=== PATIENT | female | born 1960 | race Caucasian/White ===

== ENCOUNTER 2016-07-15 14:57 | Emergency (ER) | payer OTHER ==
[~2016-07-15] VITALS: Ht 160 cm; Wt 70.0 kg
[~2016-07-15 14:57] MED LIST: ALBU8I INH; ASPI81 PO; CAPT50TA PO; FEXO180 PO; FLON0.053; HYDR-2768 PO; METO25 PO; RANI150 PO; SIMV80TA PO; XANA0.5T PO
[2016-07-15 14:59] VITALS: BP 184/82; PULSE 81; RESP 12; TEMP 98.3; O2SAT 97
[2016-07-15] MEDS ORDERED: AUGM875T PO (17:41)
--- NOTE | 2016-07-15 17:41 | PD ---
HPI Chief Complaint: Skin Problem Time Seen by Provider: 17:41 Travel History International Travel<30 days: No Contact w/Intl Traveler<30days: No Traveled to known affect area: No History of Present Illness HPI Patient is a 56 year old female with a history of CAD presenting with cat bite to left calf. She states 5 days prior her cat was chasing it's tail and she got in the way. She states that bleeding was minimal. Her cat is fully vaccinated and is indoor only. She states that she had pain and swelling and redness and has been cleaning it several times daily and applying antibiotic ointment. She states that the swelling and pain has improved. She denies any drainage. She denies fever, chills, nausea and vomiting. She denies any weakness or paresthesia and pain when bearing weight. She denies any retained foreign body sensation. She denies claudication and PVD. She denies history of diabetes and immunocompromised states. She endorses tobacco use. PFSH Past Medical History Arthritis: Yes Asthma: Yes Blood Disorders: No Cancer: No Cardiac Catheterization: Yes High Cholesterol: Yes Coronary Artery Disease: Yes Endocrine: No GERD: Yes Genitourinary: No Headaches: Yes Hypertension: Yes Immune Disorder: No Psychiatric: No Reproductive: No Myocardial Infarction: Yes (03/2007) Past Surgical History Tonsillectomy: Yes Social History Alcohol Use: No Tobacco Use: Yes (06/21 PPD) Substance Use: No Allergies-Medications (Allergen,Severity, Reaction): Coded Allergies: Codeine (Verified Allergy, Severe, HEART RACES, 07/15/16) Contrast Media (Verified Allergy, Severe, Headache, 07/15/16) Lortab (Verified Allergy, Severe, SEVERE ITCHING, 07/15/16) Flexeril (Verified Allergy, Intermediate, 07/15/16) Lipitor (Verified Allergy, Intermediate, 07/15/16) Nitro-Dur (Verified Adverse Reaction, Intermediate, drop in blood pressure too fast, 07/15/16) Reported Meds & Prescriptions Reported Meds & Active Scripts Active Augmentin (Amoxicillin-Clavulanate) 875-125 mg Tab 875 Mg PO BID not for use in CrCl <30 ml/min. Captopril 50 mg (Captopril) 50 Mg Tab 50 Mg PO BID Simvastatin 80 mg (Simvastatin) 80 Mg Tab 1 Tab PO HS Metoprolol Tartrate 25 mg (Metoprolol Tartrate) 25 Mg Tab 25 Mg PO BID Hctz (Hydrochlorothiazide) 25 Mg Tab 25 Mg PO DAILY Xanax 0.5 mg (Alprazolam) Alprazolam 0.5 mg Tab 1 Tab PO BID no more refills from Dr. Prachi Hyman (Ranitidine HCl) 150 Mg Tab 150 Mg PO BID Reported [id number] Mg 180 Mg Tab 180 Mg PO DAILY Aspirin 81 Mg Tab 81 Mg PO DAILY Review of Systems Except as stated in HPI: all other systems reviewed are Neg Physical Exam Narrative GENERAL: Well-developed and well-nourished adult female in no acute distress. SKIN: Warm and dry. Good turgor without tenting. HEAD: Normocephalic and atraumatic. CARDIOVASCULAR: Regular rate and rhythm without murmurs, rubs, clicks or gallops. Dorsalis pedis posterior tibial pulses 2+ bilaterally. Capillary refill less than 2 seconds distal tip of all 5 toes of left foot. Trace left pedal edema without tenseness or tenderness to palpation. RESPIRATORY: Clear to auscultation bilaterally with symmetrical rise and fall, no distress or use of accessory muscles. MUSCULOSKELETAL: The right calf and anterior tib-fib Mid portion has multiple abrasions and healing puncture wounds. Posteriorly there are superficial abrasions with no apparent cellulitis. Anteriorly there are 4 areas of scabbing that are all subcentimeter with some mild surrounding erythema without streaking, zone approx 3mm each. There is no drainage. There is no induration or fluctuance. There is some minor edema locally without point tenderness or pitting. No crepitus. No gait disturbances. Patient freely moving all four extremities spontaneously. Extremities without clubbing or cyanosis. No obvious deformities. NEUROLOGIC: CN II-XII grossly intact. Awake and alert. Strength 5/5 bilateral plantar flexion, dorsiflexion, great toe flexion and extension. Sensation intact to the distal tip of all 5 toes left foot. Normal speech. PSYCHIATRIC: Appropriate mood and affect; insight and judgment normal. Data Data Last Documented VS Vital Signs Date Time Temp Pulse Resp B/P Pulse Ox O2 Delivery O2 Flow Rate FiO2 07/15/16 14:59 98.3 81 12 184/82 97 Room Air Orders Ampicillin-Sulbactam Inj (Unasyn Inj) (07/15/16 17:45) Tibia/Fibula (Ap/Lat) (07/15/16 17:39) Tetanus/Diphtheria Tox Adult (Tetanus/Di (07/15/16 17:45) MDM Medical Decision Making Medical Screen Exam Complete: Yes Emergency Medical Condition: Yes Differential Diagnosis Cat Bite versus cellulitis versus puncture wound versus abscess Narrative Course Patient is a 56-year-old female with history of CAD but not PVD or diabetes or immunocompromise states presenting with bite and scratch chowdary to the left calf and pretibial surface suffered 5 days prior from her back stated. She is afebrile and nontoxic and has no systemic complaints. She reports that the swelling is much improved daily and she denies any discharge. As this is improving when I asked the patient why she presented today she states that her friends have told her these are prone to infection and she is worried and requests antibiotics. There is evidence of mild cellulitis without any evidence of abscess or compartment syndrome. Patient is neurovascularly intact. Updated her tetanus vaccine today. Patient was given Unasyn 1500 mg IM. Ordered x-ray of the left tib-fib shows no significant foreign body, fracture or cortical irregularities. As this is improving by history, appears very minimal and there is no evidence of abscess and the patient is afebrile and nontoxic without systemic complaints that do not believe any additional workup is indicated at this time. I discussed with Dr. Jacobsen who agrees if it is improving by history and is minimal on exam treating the minimal cellulitis and having patient follow up with her PCP tomorrow is appropriate. Diagnosis Primary Impression: Cat bite Qualified Code: W55.01XA - Cat bite, initial encounter Additional Impression: Cellulitis Qualified Code: L03.116 - Cellulitis of left lower extremity Patient Instructions: Animal Bite (ED), Cellulitis (ED), General Instructions Additional Instructions: Keep area clean, dry, and covered with dressing/bandage Apply warm compresses daily to help with drainage Warm water Epsom salt soaks will help promote drainage Wound will continue to drain which is normal Take Tylenol for pain Take medications as directed Follow-up with PCP tomorrow Return to the ED for any acute worsening of symptoms including worsening swelling, spreading redness, fever, chills, nausea and vomiting Med/Other Pt SpecificInfo: Prescription(s) given Scripts Amoxicillin-Clavulanate (Augmentin)875-125 mg [id number] Mg PO BID #20 TAB Ref 0 not for use in CrCl <30 ml/min. Prov:Zenaida Oquendo MD 07/15/16 Disposition: 01 DISCHARGE HOME Condition: Stable Jim Scott III Jul 15, 2016 17:41
[2016-07-15] MEDS ORDERED: TETANUS/DIPHTHERIA TOXOID ADULT 0.5 ML VIAL IM ONE (17:45)
[2016-07-15] MEDS ORDERED: AMPICILLIN-SULBACTAM INJ 1,500 MG VIAL IM ONE (17:45)
--- NOTE | 2016-07-15 18:29 | RADRPT ---
EXAM DATE/TIME: 07/15/2016 17:46 [facility] COMPARISON: No previous studies available for comparison. INDICATIONS : Cat bite. MEDICAL HISTORY : None. SURGICAL HISTORY : None. ENCOUNTER: Initial ACUITY: 4 - 6 days PAIN SCORE: 0/10 LOCATION: Left Tib/Fib FINDINGS: Two view examination of the left tibia demonstrates no evidence of fracture or dislocation. Bony min eralization is normal. The soft tissue structures are intact. CONCLUSION: Unremarkable examination of the left tibia. Jim Campbell MD on July 15, 2016 at 18:27 Board Certified Radiologist. This report was verified electronically.
[2016-09-08] MEDS ORDERED: PNEU13P IM (10:51)
[2016-09-08] MEDS ORDERED: ALPR.5 PO (11:19)
[2016-09-08] MEDS ORDERED: HYDR25TA5 PO (11:22)
[2016-09-08] MEDS ORDERED: ZANT150T2 PO (11:22)
[2016-09-08] MEDS ORDERED: METO25TA3 PO (11:22)
[2016-09-08] MEDS ORDERED: ZOCO80TA PO (11:22)
[2016-09-08] MEDS ORDERED: CAPT50TA PO (11:22)
[2016-10-11] MEDS ORDERED: ALPR.5 PO (15:32)
[2016-10-11] MEDS ORDERED: HYDR25TA5 PO (15:32)
[2016-10-11] MEDS ORDERED: CAPT50TA PO (15:32)
[2016-10-11] MEDS ORDERED: METO25TA3 PO (15:32)
[2016-10-11] MEDS ORDERED: XARE20TA PO (15:33)
[2016-10-11] MEDS ORDERED: HYDR-4204 TOPICAL (15:37)
[2016-11-25] MEDS ORDERED: VENTAER INH (11:18)
[2016-11-25] MEDS ORDERED: PRED20 PO (11:18)
[2016-11-25] MEDS ORDERED: AZIT500T2 PO (11:18)
[2016-12-13] MEDS ORDERED: DILA2TAB2 PO (15:55)
== END 2016-07-15 19:21 | disposition home or self-care (01) ==
LOC: NEPB 14:57
DX: S81.812A Laceration without foreign body, left lower leg, initial encounter (principal); L03.116 Cellulitis of left lower limb; E78.00 Pure hypercholesterolemia, unspecified; I10 Essential (primary) hypertension; W55.01XA Bitten by cat, initial encounter; Y93.9 Activity, unspecified; Y92.9 Unspecified place or not applicable
CPT/HCPCS: 73590; 90471; 90714; 96372; 99283; J0295

== ENCOUNTER 2016-07-26 22:53 | Emergency (ER) | payer OTHER ==
[~2016-07-26] VITALS: Ht 152.4 cm; Wt 59.0 kg
[~2016-07-26 22:53] MED LIST changes: -ALBU8I INH; +AUGM875T PO; -FLON0.053
[2016-07-26 22:55] VITALS: BP 165/87; PULSE 70; RESP 16; TEMP 98; O2SAT 98
[2016-07-26] MEDS ORDERED: AUGM875T PO (23:38)
--- NOTE | 2016-07-26 23:38 | PD ---
HPI Chief Complaint: Medical Clearance Time Seen by Provider: 23:37 Travel History International Travel<30 days: No Contact w/Intl Traveler<30days: No Traveled to known affect area: No History of Present Illness HPI 56-year-old female presents to emergency department for reevaluation of a Bite sustained to her left lower extremity 10 days ago. Patient states that she ran out of her antibiotics today and she is concerned that the infection may not be completely gone. She states it is much better than it was but there is still some redness surrounding the area and she is afraid that it'll worsen if she does not continue antibiotics. Denies fever or chills. Moderate pain associated with the area but much improved. No alterations in sensation. No other symptoms to report. PFSH Past Medical History Arthritis: Yes Asthma: Yes Blood Disorders: No Cancer: No Cardiac Catheterization: Yes High Cholesterol: Yes Coronary Artery Disease: Yes Endocrine: No GERD: Yes Genitourinary: No Headaches: Yes Hypertension: Yes Immune Disorder: No Psychiatric: No Reproductive: No Myocardial Infarction: Yes (03/2007) Past Surgical History Tonsillectomy: Yes Social History Alcohol Use: No Tobacco Use: Yes (06/21 PPD) Substance Use: No Allergies-Medications (Allergen,Severity, Reaction): Coded Allergies: Codeine (Verified Allergy, Severe, HEART RACES, 07/26/16) Contrast Media (Verified Allergy, Severe, Headache, 07/26/16) Lortab (Verified Allergy, Severe, SEVERE ITCHING, 07/26/16) Flexeril (Verified Allergy, Intermediate, 07/26/16) Lipitor (Verified Allergy, Intermediate, 07/26/16) Nitro-Dur (Verified Adverse Reaction, Intermediate, drop in blood pressure too fast, 07/26/16) Reported Meds & Prescriptions Reported Meds & Active Scripts Active Augmentin (Amoxicillin-Clavulanate) 875-125 mg Tab 875 Mg PO BID not for use in CrCl <30 ml/min. Augmentin (Amoxicillin-Clavulanate) 875-125 mg Tab 875 Mg PO BID not for use in CrCl <30 ml/min. Captopril 50 mg (Captopril) 50 Mg Tab 50 Mg PO BID Simvastatin 80 mg (Simvastatin) 80 Mg Tab 1 Tab PO HS Metoprolol Tartrate 25 mg (Metoprolol Tartrate) 25 Mg Tab 25 Mg PO BID Hctz (Hydrochlorothiazide) 25 Mg Tab 25 Mg PO DAILY Xanax 0.5 mg (Alprazolam) Alprazolam 0.5 mg Tab 1 Tab PO BID no more refills from Dr. Prachi Hyman (Ranitidine HCl) 150 Mg Tab 150 Mg PO BID Reported [id number] Mg 180 Mg Tab 180 Mg PO DAILY Aspirin 81 Mg Tab 81 Mg PO DAILY Review of Systems Except as stated in HPI: all other systems reviewed are Neg Physical Exam Narrative GENERAL: Well-nourished, well-developed female patient ambulatory and in no acute distress SKIN: Warm and dry. 6 scabbed over wounds on the left distal lower extremity, consistent with a Bite. Mild erythema surrounding the area. No induration. No fluctuation or drainage. HEAD: Normocephalic. EYES: No scleral icterus. No injection or drainage. NECK: Supple, trachea midline. No JVD or lymphadenopathy. CARDIOVASCULAR: Regular rate and rhythm without murmurs, gallops, or rubs. RESPIRATORY: Breath sounds equal bilaterally. No accessory muscle use. GASTROINTESTINAL: Abdomen soft, non-tender, nondistended. MUSCULOSKELETAL: No cyanosis, or edema. BACK: Nontender without obvious deformity. No CVA tenderness. Data Data Last Documented VS Vital Signs Date Time Temp Pulse Resp B/P Pulse Ox O2 Delivery O2 Flow Rate FiO2 07/26/16 22:55 98.0 70 16 165/87 98 Orders Amoxicil-Clavulanate (Augmentin) (07/26/16 23:45) MDM Medical Decision Making Medical Screen Exam Complete: Yes Emergency Medical Condition: Yes Medical Record Reviewed: Yes Differential Diagnosis Healing wound versus infected wound versus cellulitis versus abscess Narrative Course 56-year-old female presents to emergency department for evaluation of a Bite sustained to days ago. Patient appears well and without distress. The bite does appear to be healing but has a small localized area of cellulitis. Augmentin will be extended. Patient is encouraged to follow-up with primary care provider and return immediately with any acute worsening symptoms. Diagnosis Primary Impression: Cat bite Qualified Code: W55.01XD - Cat bite, subsequent encounter Referrals: Primary Care Physician Patient Instructions: Acute Wound Care (ED), General Instructions Additional Instructions: Keep the area clean and dry Follow-up with the primary care provider Return immediately to the emergency department with any acute worsening of symptoms Med/Other Pt SpecificInfo: Prescription(s) given Scripts Amoxicillin-Clavulanate (Augmentin)875-125 mg [id number] Mg PO BID #5 TAB Ref 0 not for use in CrCl <30 ml/min. Prov:Jana Sinclair 07/26/16 Disposition: 01 DISCHARGE HOME Condition: Stable Jana Sinclair Jul 26, 2016 23:38
[2016-07-26] MEDS ORDERED: AMOXICILLIN/CLAVULANATE K 875 MG TAB PO ONE (23:45)
[2016-09-08] MEDS ORDERED: PNEU13P IM (10:51)
[2016-09-08] MEDS ORDERED: ALPR.5 PO (11:19)
[2016-09-08] MEDS ORDERED: ZANT150T2 PO (11:22)
[2016-09-08] MEDS ORDERED: HYDR25TA5 PO (11:22)
[2016-09-08] MEDS ORDERED: CAPT50TA PO (11:22)
[2016-09-08] MEDS ORDERED: ZOCO80TA PO (11:22)
[2016-09-08] MEDS ORDERED: METO25TA3 PO (11:22)
[2016-10-11] MEDS ORDERED: CAPT50TA PO (15:32)
[2016-10-11] MEDS ORDERED: HYDR25TA5 PO (15:32)
[2016-10-11] MEDS ORDERED: METO25TA3 PO (15:32)
[2016-10-11] MEDS ORDERED: ALPR.5 PO (15:32)
[2016-10-11] MEDS ORDERED: XARE20TA PO (15:33)
[2016-10-11] MEDS ORDERED: HYDR-4204 TOPICAL (15:37)
[2016-11-25] MEDS ORDERED: AZIT500T2 PO (11:18)
[2016-11-25] MEDS ORDERED: PRED20 PO (11:18)
[2016-11-25] MEDS ORDERED: VENTAER INH (11:18)
[2016-12-13] MEDS ORDERED: DILA2TAB2 PO (15:55)
== END 2016-07-27 00:10 | disposition home or self-care (01) ==
LOC: NEPB 22:53
DX: S81.852D Open bite, left lower leg, subsequent encounter (principal); J45.909 Unspecified asthma, uncomplicated; E78.00 Pure hypercholesterolemia, unspecified; I10 Essential (primary) hypertension; F17.210 Nicotine dependence, cigarettes, uncomplicated; W55.01XD Bitten by cat, subsequent encounter
CPT/HCPCS: 99283

== ENCOUNTER 2016-08-24 21:11 | Emergency (ER) | payer OTHER ==
[2016-08-24 21:12] VITALS: BP 137/79; PULSE 103; RESP 18; TEMP 97.6; O2SAT 100
[2016-08-24 23:29] VITALS: BP 127/76; PULSE 96; RESP 18; O2SAT 100
[2016-08-24] MEDS ORDERED: HYDR25TA5 PO (23:35)
[2016-08-24] MEDS ORDERED: CAPT50TA PO (23:35)
[2016-08-24] MEDS ORDERED: ASPI1TAB69 PO (23:35)
[2016-08-24] MEDS ORDERED: ZOCO80TA PO (23:35)
[2016-08-24] MEDS ORDERED: ZANT150T2 PO (23:35)
[2016-08-24] MEDS ORDERED: ALPR.5 PO (23:35)
[2016-08-24] MEDS ORDERED: METO25TA3 PO (23:35)
--- NOTE | 2016-08-24 23:54 | PD ---
HPI Chief Complaint: Pain: Acute or Chronic Time Seen by Provider: 23:35 Travel History International Travel<30 days: No Contact w/Intl Traveler<30days: No Traveled to known affect area: No History of Present Illness HPI Patient is a 56-year-old female who presents to emergency room with complaints of left lower extremity calf tenderness for the past 3 days. Patient reports that she has not had any recent travels or checkups, denies any prolonged immobilizations. Patient denies history of PE or DVT. Patient denies any traumas to her calf muscles. Patient currently not on any anticoagulation. Patient denies chest pain or shortness of breath at this time. PFSH Past Medical History Hx Anticoagulant Therapy: Yes Arthritis: Yes Asthma: Yes Blood Disorders: No Cancer: No Cardiac Catheterization: Yes (1 stent) Cardiovascular Problems: Yes High Cholesterol: Yes Coronary Artery Disease: Yes Endocrine: No GERD: Yes Genitourinary: No Headaches: Yes Hypertension: Yes Immune Disorder: No Psychiatric: No Reproductive: No Respiratory: Yes Immunizations Current: Yes Myocardial Infarction: Yes (03/2007) Tetanus Vaccination: < 5 Years Influenza Vaccination: No ?: Not Menopausal: Yes : 2 Para: 1 : 1 Past Surgical History Tonsillectomy: Yes Social History Alcohol Use: No Tobacco Use: Yes (06/21 PPD) Substance Use: No Allergies-Medications (Allergen,Severity, Reaction): Coded Allergies: Codeine (Verified Allergy, Severe, HEART RACES, 08/24/16) Contrast Media (Verified Allergy, Severe, Headache, 08/24/16) Lortab (Verified Allergy, Severe, SEVERE ITCHING, 08/24/16) Flexeril (Verified Allergy, Intermediate, 08/24/16) Lipitor (Verified Allergy, Intermediate, 08/24/16) Nitro-Dur (Verified Adverse Reaction, Intermediate, drop in blood pressure too fast, 08/24/16) Reported Meds & Prescriptions Reported Meds & Active Scripts Active Xarelto (Rivaroxaban) 20 Mg Tab 20 Mg PO DAILY 30 Days Xarelto (Rivaroxaban) 15 Mg Tab 15 Mg PO BID 21 Days Reported Zocor (Simvastatin) 80 Mg Tab 80 Mg PO DAILY Zantac (Ranitidine HCl) 150 Mg Tab 150 Mg PO BID Metoprolol Tartrate 25 Mg Tab 25 Mg PO BID Hydrochlorothiazide 25 Mg Tab 25 Mg PO DAILY Captopril 50 Mg Tab 50 Mg PO BIDAC Take 1 hour before meals. Xanax (Alprazolam) 0.5 Mg Tab 0.5 Mg PO BID PRN Aspirin 81 Mg Tabdr 81 Mg PO DAILY Review of Systems General / Constitutional: No: Fever Eyes: No: Visual changes HENT: No: Headaches Cardiovascular: No: Chest Pain or Discomfort Respiratory: No: Shortness of Breath Gastrointestinal: No: Abdominal Pain Genitourinary: No: Dysuria Musculoskeletal: Positive: Cramping (left calf cramping), No: Pain Skin: No Rash Neurologic: No: Weakness Psychiatric: No: Depression Endocrine: No: Polydipsia Hematologic/Lymphatic: No: Easy Bruising Physical Exam Narrative GENERAL: No acute distress, nontoxic SKIN: Warm and dry. HEAD: Atraumatic. Normocephalic. EYES: Pupils equal and round. No scleral icterus. No injection or drainage. ENT: No nasal bleeding or discharge. Mucous membranes pink and moist. NECK: Trachea midline. No JVD. CARDIOVASCULAR: Regular rate and rhythm. No murmur appreciated. RESPIRATORY: No accessory muscle use. Clear to auscultation. Breath sounds equal bilaterally. GASTROINTESTINAL: Abdomen soft, non-tender, nondistended. Hepatic and splenic margins not palpable. MUSCULOSKELETAL: No obvious deformities. No clubbing. No cyanosis. Patient with left-sided calf tenderness, no edema, pulses intact, no signs of infection. Right extremity with normal exam, no tenderness or visible erythema , pulses intact NEUROLOGICAL: Awake and alert. No obvious cranial nerve deficits. Motor grossly within normal limits. Normal speech. PSYCHIATRIC: Appropriate mood and affect; insight and judgment normal. Data Data Last Documented VS Vital Signs Date Time Temp Pulse Resp B/P Pulse Ox O2 Delivery O2 Flow Rate FiO2 08/24/16 23:29 96 18 127/76 100 Room Air 08/24/16 21:12 97.6 Orders Basic Metabolic Panel (Bmp) (08/24/16 23:38) Prothrombin Time / Inr (Pt) (08/24/16 23:38) Act Partial Throm Time (Ptt) (08/24/16 23:38) Us Leg Venous Doppler (08/25/16 ) Rivaroxaban (Xarelto) (08/25/16 01:45) Labs Laboratory Tests Test 08/25/16 00:30 Prothrombin Time 10.2 SEC Prothromb Time International 0.9 RATIO Ratio Activated Partial 21.5 SEC Thromboplast Time Sodium Level 138 MEQ/L Potassium Level 3.5 MEQ/L Chloride Level 100 MEQ/L Carbon Dioxide Level 28.2 MEQ/L Anion Gap 10 MEQ/L Blood Urea Nitrogen 14 MG/DL Creatinine 1.25 MG/DL Estimat Glomerular Filtration 45 ML/MIN Rate Random Glucose 99 MG/DL Calcium Level 9.0 MG/DL MDM Medical Decision Making Medical Screen Exam Complete: Yes Emergency Medical Condition: Yes Interpretation(s) Vital Signs Date Time Temp Pulse Resp B/P Pulse Ox O2 Delivery O2 Flow Rate FiO2 08/24/16 23:29 96 18 127/76 100 Room Air 08/24/16 21:12 97.6 103 18 137/79 100 Room Air Differential Diagnosis DVT, muscle strain Narrative Course Patient is a 56-year-old female who presents to emergency room with complaints of left calf tenderness and cramping for the past 3 days. Patient with no shortness of breath, no history of PE or DVT. Patient here for evaluation of possible DVT. Ultrasound of left lower extremity ordered Laboratory Tests Test 08/25/16 00:30 Prothrombin Time 10.2 SEC (9.8-11.6) Prothromb Time International 0.9 RATIO Ratio Activated Partial 21.5 SEC Thromboplast Time (24.3-30.1) Patient with DVT to left lower Extremity. Patient given coupon for Xarelto 30 day supply. Patient given prescription for Xarelto and instructions. Patient will follow-up with her primary care doctor and return to emergency room as needed. Patient has follow up appointment with her pcp on september 12, 2016. She will bring her US report to her doctor's office for follow up Diagnosis Primary Impression: DVT (deep venous thrombosis) Qualified Code: I82.432 - Acute deep vein thrombosis (DVT) of popliteal vein of left lower extremity Patient Instructions: General Instructions Additional Instructions: please provide patient with a copy of her labs and studies at discharge Please follow-up with your primary care doctor Please take all medications as prescribed Xarelto was prescribed to you for treatment of DVT (deep vein thrombosis) please take 15mg twice a day for 21 days, then take 20mg daily Please follow up with your primary care doctor as soon as possible Med/Other Pt SpecificInfo: Prescription(s) given Scripts Rivaroxaban (Xarelto)20 Mg Tab20 Mg PO DAILY 30 Days Ref 0 Prov:Daly Ny DO 08/25/16 Rivaroxaban (Xarelto)15 Mg Tab15 Mg PO BID 21 Days Ref 0 Prov:Daly Ny DO 08/25/16 Disposition: 01 DISCHARGE HOME Condition: Stable Daly Ny DO Aug 24, 2016 23:54
[2016-08-25 01:05] LABS: APTT (PATIENT) 21.5 SEC (24.3-30.1); INTERNATIONAL NORMALIZED RATIO 0.9 RATIO; PROTHROMBIN TIME - PATIENT 10.2 SEC (9.8-11.6)
--- NOTE | 2016-08-25 01:10 | RADRPT ---
EXAM DATE/TIME: 08/25/2016 00:48 [facility] COMPARISON: No previous studies available for comparison. INDICATIONS : Swelling in left lower extremity. MEDICAL HISTORY : Myocardial infarction. Hypercholesterolemia. Hypertension. GERD. Asthma. Arthritis. SURGICAL HISTORY : Tonsillectomy. Deviated septum. Cardiac stent. Lumbar disc removed. Cardiac catheterization. ENCOUNTER: Initial ACUITY: 3 days PAIN SCORE: 7/10 LOCATION: Left leg. TECHNIQUE: Venous ultrasound of the leg was performed from the inguinal ligament to the proximal calf. Real-shadia e, color Doppler and spectral tracing, compression and augmentation techniques were used. FINDINGS: The popliteal vein is noncompressible with no detectable venous flow on Doppler interrogation. Simila r findings are seen in the trifurcation tributaries. More central deep veins appear to be patent. CONCLUSION: Occlusive DVT in the popliteal vein and trifurcation tributaries. More central deep venous syste m appears patent. Ramon Santos MD on August 25, 2016 at 1:07 Board Certified Radiologist. This report was verified electronically.
[2016-08-25 01:20] LABS: BICARBONATE 28.2 MEQ/L (21.0-32.0); POTASSIUM 3.5 MEQ/L (3.5-5.1)
[2016-08-25] MEDS ORDERED: XARE20TA PO (01:30)
[2016-08-25] MEDS ORDERED: XARE15TA PO (01:30)
[2016-08-25] MEDS ORDERED: RIVAROXABAN 15 MG TAB PO ONE (01:45)
[2016-08-25 02:00] VITALS: BP 122/73; PULSE 85; RESP 18; O2SAT 98
[2016-09-08] MEDS ORDERED: PNEU13P IM (10:51)
[2016-09-08] MEDS ORDERED: ALPR.5 PO (11:19)
[2016-09-08] MEDS ORDERED: METO25TA3 PO (11:22)
[2016-09-08] MEDS ORDERED: CAPT50TA PO (11:22)
[2016-09-08] MEDS ORDERED: ZANT150T2 PO (11:22)
[2016-09-08] MEDS ORDERED: HYDR25TA5 PO (11:22)
[2016-09-08] MEDS ORDERED: ZOCO80TA PO (11:22)
[2016-10-11] MEDS ORDERED: METO25TA3 PO (15:32)
[2016-10-11] MEDS ORDERED: HYDR25TA5 PO (15:32)
[2016-10-11] MEDS ORDERED: CAPT50TA PO (15:32)
[2016-10-11] MEDS ORDERED: ALPR.5 PO (15:32)
[2016-10-11] MEDS ORDERED: XARE20TA PO (15:33)
[2016-10-11] MEDS ORDERED: HYDR-4204 TOPICAL (15:37)
[2016-11-25] MEDS ORDERED: AZIT500T2 PO (11:18)
[2016-11-25] MEDS ORDERED: PRED20 PO (11:18)
[2016-11-25] MEDS ORDERED: VENTAER INH (11:18)
[2016-12-13] MEDS ORDERED: DILA2TAB2 PO (15:55)
== END 2016-08-25 02:34 | disposition home or self-care (01) ==
LOC: NEPA 21:11
DX: I82.432 Acute embolism and thrombosis of left popliteal vein (principal); F17.210 Nicotine dependence, cigarettes, uncomplicated; I25.10 Atherosclerotic heart disease of native coronary artery without angina pectoris; E78.00 Pure hypercholesterolemia, unspecified; Z79.01 Long term (current) use of anticoagulants
CPT/HCPCS: 80048; 85610; 85730; 93971

== ENCOUNTER 2016-10-09 22:03 | Emergency (ER) | payer OTHER ==
[~2016-10-09] VITALS: Ht 149.9 cm; Wt 55.0 kg
[~2016-10-09 22:03] MED LIST changes: +ALPR.5 PO; -ASPI81 PO; -AUGM875T PO; -FEXO180 PO; -HYDR-2768 PO; +HYDR25TA5 PO; -METO25 PO; +METO25TA3 PO; -RANI150 PO; -SIMV80TA PO; -XANA0.5T PO; +XARE15TA PO; +XARE20TA PO; +ZANT150T2 PO; +ZOCO80TA PO
[2016-10-09 22:06] VITALS: BP 149/70; PULSE 96; RESP 16; TEMP 97.9; O2SAT 98
--- NOTE | 2016-10-09 23:02 | PD ---
HPI Chief Complaint: Injury Time Seen by Provider: 22:54 Travel History International Travel<30 days: No Contact w/Intl Traveler<30days: No Traveled to known affect area: No History of Present Illness HPI Patient is a 56-year-old female who presents to the emergency department with pain and swelling in her right leg and calf. Patient seen here in August with a left lower extremity DVT and started on Xarelto. She has been compliant with this. For the last week she has been having pain in the popliteal and calf area of the right leg. She has noticed associated swelling. Today this increased with a prominent varicosity noted in the anterior weller prompting ER visit. She denies any chest pain, shortness of breath or palpitations. No injury, fall. PFSH Past Medical History Hx Anticoagulant Therapy: Yes Arthritis: Yes Asthma: Yes Blood Disorders: No Cancer: No Cardiac Catheterization: Yes (1 stent) Cardiovascular Problems: Yes High Cholesterol: Yes Coronary Artery Disease: Yes Deep Vein Thrombosis: Yes (left leg jul 2016) Endocrine: No GERD: Yes Genitourinary: No Headaches: Yes Hypertension: Yes Immune Disorder: No Psychiatric: No Reproductive: No Respiratory: Yes Immunizations Current: Yes Myocardial Infarction: Yes (03/2007) ?: Not Menopausal: Yes : 2 Para: 1 : 1 Past Surgical History Tonsillectomy: Yes Other Surgery: No Social History Alcohol Use: No Tobacco Use: Yes (06/21 PPD) Substance Use: No Allergies-Medications (Allergen,Severity, Reaction): Coded Allergies: Codeine (Verified Allergy, Severe, HEART RACES, 10/09/16) Contrast Media (Verified Allergy, Severe, Headache, 10/09/16) Lortab (Verified Allergy, Severe, SEVERE ITCHING, 10/09/16) Flexeril (Verified Allergy, Intermediate, 10/09/16) Lipitor (Verified Allergy, Intermediate, 10/09/16) Nitro-Dur (Verified Adverse Reaction, Intermediate, drop in blood pressure too fast, 10/09/16) Reported Meds & Prescriptions Reported Meds & Active Scripts Active Zocor (Simvastatin) 80 Mg Tab 80 Mg PO DAILY Zantac (Ranitidine HCl) 150 Mg Tab 150 Mg PO BID Metoprolol Tartrate 25 Mg Tab 25 Mg PO BID Hydrochlorothiazide 25 Mg Tab 25 Mg PO DAILY Captopril 50 Mg Tab 50 Mg PO BIDAC Take 1 hour before meals. Xanax (Alprazolam) 0.5 Mg Tab 0.5 Mg PO BID PRN Xarelto (Rivaroxaban) 20 Mg Tab 20 Mg PO DAILY 30 Days Review of Systems Except as stated in HPI: all other systems reviewed are Neg Physical Exam Narrative GENERAL: Well-appearing female in no acute distress SKIN: Focused skin assessment warm/dry. HEAD: Normocephalic. EYES: No scleral icterus. No injection or drainage. ENT: Mucous membranes pink and moist. NECK: Supple CARDIOVASCULAR: Regular rate and rhythm. No murmur appreciated. RESPIRATORY: No accessory muscle use. Clear to auscultation. Breath sounds equal bilaterally. MUSCULOSKELETAL: Right lower extremity with varicosities superficial noted over the anterior weller. No palpable cords, erythema. Distal sensation and pulses are intact. Negative Homans sign. No palpable fullness in the popliteal fossa. She has tenderness to palpation over the gastroc, but strength is intact. NEUROLOGICAL: Awake and alert. Normal gait. Normal speech. PSYCHIATRIC: Appropriate mood and affect; insight and judgment normal. Data Data Last Documented VS Vital Signs Date Time Temp Pulse Resp B/P Pulse Ox O2 Delivery O2 Flow Rate FiO2 10/09/16 22:06 97.9 96 16 149/70 98 Room Air Orders Us Leg Venous Doppler (10/09/16 ) MDM Medical Decision Making Medical Screen Exam Complete: Yes Emergency Medical Condition: Yes Medical Record Reviewed: Yes Differential Diagnosis 56-year-old female with recent left lower extremity DVT currently still taking Xarelto here with one week of right lower extremity pain, swelling similar to her history of DVT pain. Differential includes DVT, gastroc strain, Monique cyst. Narrative Course Duplex ultrasound of the right lower examination showed no evidence of DVT or monique's cyst. Patient reassured and discharged home. Diagnosis Primary Impression: Right calf pain Referrals: Primary Care Physician 2 days Additional Instructions: Follow-up with primary as scheduled Med/Other Pt SpecificInfo: No Change to Meds Disposition: 01 DISCHARGE HOME Condition: Stable Nicolle Castano MD Oct 09, 2016 23:02
--- NOTE | 2016-10-10 00:34 | RADRPT ---
EXAM DATE/TIME: 10/09/2016 23:42 [facility] COMPARISON: No previous studies available for comparison. INDICATIONS : Right leg pain and swelling. MEDICAL HISTORY : Hypercholesterolemia. Deep venous thrombosis. Gastroesophageal reflux disease. Headache. Myocardia l infarction. Coronary artery disease. Anticoagulant therapy. Hyperlipidemia. Hypertension. Asthma. P regnancy. Arthritis. Anxiety. SURGICAL HISTORY : Tonsillectomy. Coronary artery stent. Deviated septum repair. Back surgery. ENCOUNTER: Subsequent ACUITY: 1 day PAIN SCORE: 5/10 LOCATION: Right leg. TECHNIQUE: Venous ultrasound of the leg was performed from the inguinal ligament to the proximal calf. Real-shadia e, color Doppler and spectral tracing, compression and augmentation techniques were used. FINDINGS: There is normal compressibility of the deep venous system from the inguinal region to the proximal ca lf. No echogenic clot is seen in the lumen of the common femoral, femoral, popliteal, and posterior tibial veins. There is a normal response of the venous system to proximal and distal augmentation an d respiration. CONCLUSION: Normal examination. Henri Luque Jr., MD on October 10, 2016 at 0:32 Board Certified Radiologist. This report was verified electronically.
[2016-10-11] MEDS ORDERED: ALPR.5 PO (15:32)
[2016-10-11] MEDS ORDERED: METO25TA3 PO (15:32)
[2016-10-11] MEDS ORDERED: CAPT50TA PO (15:32)
[2016-10-11] MEDS ORDERED: HYDR25TA5 PO (15:32)
[2016-10-11] MEDS ORDERED: XARE20TA PO (15:33)
[2016-10-11] MEDS ORDERED: HYDR-4204 TOPICAL (15:37)
[2016-11-25] MEDS ORDERED: PRED20 PO (11:18)
[2016-11-25] MEDS ORDERED: AZIT500T2 PO (11:18)
[2016-11-25] MEDS ORDERED: VENTAER INH (11:18)
[2016-12-13] MEDS ORDERED: DILA2TAB2 PO (15:55)
== END 2016-10-10 01:00 | disposition home or self-care (01) ==
LOC: NEPD 22:03
DX: M79.661 Pain in right lower leg (principal); F17.210 Nicotine dependence, cigarettes, uncomplicated; J45.909 Unspecified asthma, uncomplicated; E78.00 Pure hypercholesterolemia, unspecified; I25.10 Atherosclerotic heart disease of native coronary artery without angina pectoris; I10 Essential (primary) hypertension; I25.2 Old myocardial infarction; K21.9 Gastro-esophageal reflux disease without esophagitis; Z79.01 Long term (current) use of anticoagulants; Z86.718 Personal history of other venous thrombosis and embolism; Z95.5 Presence of coronary angioplasty implant and graft
CPT/HCPCS: 93971

== ENCOUNTER 2016-11-25 17:16 | Emergency (ER) | payer OTHER ==
[~2016-11-25] VITALS: Ht 149.9 cm; Wt 55.0 kg
[~2016-11-25 17:16] MED LIST changes: +AZIT500T2 PO; +HYDR-4204 TOPICAL; +PRED20 PO; +VENTAER INH; -XARE15TA PO
[2016-11-25 17:18] VITALS: BP 143/85; PULSE 98; RESP 20; TEMP 98.7; O2SAT 99
--- NOTE | 2016-11-25 17:27 | PD ---
Physical Exam Date Seen by Provider: Nov 25, 2016 Time Seen by Provider: 17:26 Data Data Last Documented VS Vital Signs Date Time Temp Pulse Resp B/P Pulse Ox O2 Delivery O2 Flow Rate FiO2 11/25/16 17:18 98.7 98 20 143/85 99 Room Air [facility] Supervised Visit with KRIS: No Narrative Course 56 YO F with complaint of abdominal bruising, left groin pain,coldness and tingling of the left and right arm. On Xarelto. Sent by Dr. Justine Sharma reviewed. Awaiting bed placement. Cayla Barraza Nov 25, 2016 17:27
[2016-11-25 18:32] VITALS: BP 144/70; PULSE 80; RESP 16; O2SAT 99
[2016-11-25] MEDS ORDERED: SODIUM CHLORIDE 0.9% FLUSH 10 ML FLUSH IV FLUSH PRN (18:45)
[2016-11-25] MEDS ORDERED: ASPI81CH PO (18:49)
[2016-11-25] MEDS ORDERED: RANI150T PO (18:49)
[2016-11-25 19:04] LABS: AUTOMATED NEUTROPHIL # 5.5 TH/MM3 (1.8-7.7); BASOPHIL # 0.1 TH/MM3 (0-0.2); BASOPHIL % 1.3 % (0.0-2.0); EOSINOPHIL # 0.7 TH/MM3 (0-0.4); EOSINOPHIL % 7.7 % (0.0-4.0); HEMATOCRIT 41.5 % (35.0-46.0); LYMPH % 20.7 % (9.0-44.0); LYMPHOCYTE # 1.8 TH/MM3 (1.0-4.8); MEAN CELL VOLUME 87.3 FL (80.0-100.0); MEAN CORPUSCULAR HEMOGLOBIN 28.7 PG (27.0-34.0); MEAN CORPUSCULAR HGB CONC 32.8 % (32.0-36.0); MONO % 8.8 % (0.0-8.0); NEUT % 61.5 % (16.0-70.0); PLATELET COUNT 31 TH/MM3 (150-450); RED BLOOD COUNT 4.75 MIL/MM3 (4.00-5.30); RED CELL DISTRIBUTION WIDTH 14.7 % (11.6-17.2); WHITE BLOOD COUNT 8.9 TH/MM3 (4.0-11.0)
--- NOTE | 2016-11-25 19:07 | PD ---
HPI Chief Complaint: Numbness/Tingling Time Seen by Provider: 19:06 Travel History International Travel<30 days: No Contact w/Intl Traveler<30days: No Traveled to known affect area: No History of Present Illness HPI 56-year-old female with a history of hypertension, hyperlipidemia, [place] with stents, COPD, tobacco abuse, asthma, DVT anticoagulated on Xarelto presents to the emergency department for evaluation of abdominal bruising. The patient was seen by her PCP at the [facility] Dr. Fletcher, earlier today who sent her over for further evaluation of her abdominal bruising. The patient states that for the past 2 weeks she's had a few bruises on her abdomen. States that the one just above her umbilicus has only slightly improved over the past 2 weeks but the others have almost resolved. She denies any abdominal pain, nausea, vomiting, diarrhea, constipation, traumatic injury to the abdomen. She states that she has also had some numbness and tingling in the left arm and left leg that occurred last night and this morning. States that she also had the sensation of her left hand and left leg feeling very cold. This occurred while she was standing on her feet all night at work. When she got home and rested the symptoms resolved. She denies any headache, lightheadedness, dizziness, weakness, facial numbness or tingling. She is also complaining of some tenderness to the left groin that began about 2 hours ago. She also states she's had a cough for several months that has recently worsened , states that her PCP gave her a prescription for Z-Winston, steroids and albuterol today but she has not had a chance to start these medications yet. No other complaints. PFSH Past Medical History Hx Anticoagulant Therapy: Yes (XRELTO ) Arthritis: Yes Asthma: Yes Blood Disorders: No Cancer: No Cardiac Catheterization: Yes (1 stent) Cardiovascular Problems: Yes (HX OF [place] ) High Cholesterol: Yes Coronary Artery Disease: Yes Deep Vein Thrombosis: Yes Endocrine: No GERD: Yes Genitourinary: No Headaches: Yes Hypertension: Yes Immune Disorder: No Psychiatric: No Reproductive: No Respiratory: Yes Immunizations Current: Yes Myocardial Infarction: Yes Influenza Vaccination: Yes (2017) ?: Not Menopausal: Yes : 2 Para: 1 : 1 Past Surgical History Cardiac Surgery: Yes (STENT PLACED) Tonsillectomy: Yes ( A KID PER PT) Other Surgery: No Social History Alcohol Use: No Tobacco Use: Yes (1 PPD) Substance Use: No Allergies-Medications (Allergen,Severity, Reaction): Coded Allergies: Codeine (Verified Allergy, Severe, HEART RACES, 11/25/16) Contrast Media (Verified Allergy, Severe, Headache, 11/25/16) Lortab (Verified Allergy, Severe, SEVERE ITCHING, 11/25/16) Flexeril (Verified Allergy, Intermediate, 11/25/16) Lipitor (Verified Allergy, Intermediate, 11/25/16) Nitro-Dur (Verified Adverse Reaction, Intermediate, drop in blood pressure too fast, 11/25/16) Reported Meds & Prescriptions Reported Meds & Active Scripts Active Ventolin Hfa 18 GM Inh (Albuterol Sulfate) 90 Mcg/Act Aer 2 Puff INH Q4-6H PRN Prednisone 20 Mg Tab 40 Mg PO DAILY Take 40 mg (2 tablets) daily for 5 days Azithromycin 500 Mg Tab 500 Mg PO DAILY Ala-Arnol Topical (Hydrocortisone (Topical)) 2.5% Cream 1 Applic TOPICAL DIRECTED Xarelto (Rivaroxaban) 20 Mg Tab 20 Mg PO DAILY Metoprolol Tartrate 25 Mg Tab 25 Mg PO BID Hydrochlorothiazide 25 Mg Tab 25 Mg PO DAILY Captopril 50 Mg Tab 50 Mg PO BIDAC Take 1 hour before meals. Xanax (Alprazolam) 0.5 Mg Tab 0.5 Mg PO BID PRN Zocor (Simvastatin) 80 Mg Tab 80 Mg PO DAILY Reported Aspirin 81 Mg Chew 81 Mg PO DAILY Ranitidine (Ranitidine HCl) 150 Mg Tab 150 Mg PO DAILY PRN Review of Systems Except as stated in HPI: all other systems reviewed are Neg Physical Exam Narrative GENERAL: Well-nourished and well-developed pleasant female patient in no acute distress who is nontoxic appearing. SKIN: Warm and dry. HEAD: Normocephalic and atraumatic. EYES: No injection, drainage, or hyphema noted. PERRLA. EOMI. ENT: No nasal drainage noted. Oropharynx is clear. NECK: Supple and the trachea is midline. CARDIOVASCULAR: Regular rate and rhythm. RESPIRATORY: Mild expiratory wheeze bilaterally. Breath sounds are equal bilaterally with no accessory muscle use, rhonchi, or crackles. GASTROINTESTINAL: 4 x 4 centimeter fading ecchymosis just above the umbilicus. 3 x 4 cm ecchymosis to the left flank. Tenderness to palpation of the left groin, no palpable hernia. No tenderness to palpation of the abdomen. No rebound tenderness or guarding. Abdomen is soft and nondistended. MUSCULOSKELETAL: Radial pulses are 2+ bilaterally. DP pulse of right foot is dopplerable. DP pulse of left foot is not dopplerable or palpable. PT pulses on bilateral feet are dopplerable. Feet are warm and capillary refill is within normal limits throughout. No obvious deformities, swelling, cyanosis, or ecchymosis is present throughout the upper and lower extremities. Patient has full range of motion without any signs of neurovascular compromise. NEUROLOGICAL: Awake, alert, and oriented. Normal speech and gait. Cranial nerves are grossly intact. Data Data Last Documented VS Vital Signs Date Time Temp Pulse Resp B/P Pulse Ox O2 Delivery O2 Flow Rate FiO2 11/25/16 18:32 80 16 144/70 99 Room Air 11/25/16 17:18 98.7 Orders Complete Blood Count With Diff (11/25/16 18:36) Comprehensive Metabolic Panel (11/25/16 18:36) Prothrombin Time / Inr (Pt) (11/25/16 18:36) Act Partial Throm Time (Ptt) (11/25/16 18:36) Ct Abd/Pel W/O Iv Contrast (11/25/16 18:36) Iv Access Insert/Monitor (11/25/16 18:36) Ecg Monitoring (11/25/16 18:36) Oximetry (11/25/16 18:36) Sodium Chloride 0.9% Flush (Ns Flush) (11/25/16 18:45) Chest, Single Ap (11/25/16 19:16) Ct Thorax/ Chest Wo Iv Contras (11/25/16 19:57) Labs Laboratory Tests Test 11/25/16 18:44 White Blood Count 8.9 TH/MM3 Red Blood Count 4.75 MIL/MM3 Hemoglobin 13.6 GM/DL Hematocrit 41.5 % Mean Corpuscular Volume 87.3 FL Mean Corpuscular Hemoglobin 28.7 PG Mean Corpuscular Hemoglobin 32.8 % Concent Red Cell Distribution Width 14.7 % Platelet Count 31 TH/MM3 Mean Platelet Volume 9.8 FL Neutrophils (%) (Auto) 61.5 % Lymphocytes (%) (Auto) 20.7 % Monocytes (%) (Auto) 8.8 % Eosinophils (%) (Auto) 7.7 % Basophils (%) (Auto) 1.3 % Neutrophils # (Auto) 5.5 TH/MM3 Lymphocytes # (Auto) 1.8 TH/MM3 Monocytes # (Auto) 0.8 TH/MM3 Eosinophils # (Auto) 0.7 TH/MM3 Basophils # (Auto) 0.1 TH/MM3 CBC Comment AUTO DIFF Differential Comment AUTO DIFF CONFIRMED Platelet Estimate RARE Platelet Morphology Comment NORMAL Prothrombin Time 12.8 SEC Prothromb Time International 1.2 RATIO Ratio Activated Partial 26.4 SEC Thromboplast Time Sodium Level 134 MEQ/L Potassium Level 4.0 MEQ/L Chloride Level 99 MEQ/L Carbon Dioxide Level 28.6 MEQ/L Anion Gap 6 MEQ/L Blood Urea Nitrogen 19 MG/DL Creatinine 1.31 MG/DL Estimat Glomerular Filtration 42 ML/MIN Rate Random Glucose 86 MG/DL Calcium Level 8.5 MG/DL Total Bilirubin 0.3 MG/DL Aspartate Amino Transf 37 U/L (AST/SGOT) Alanine Aminotransferase 25 U/L (ALT/SGPT) Alkaline Phosphatase 137 U/L Total Protein 6.8 GM/DL Albumin 3.6 GM/DL [facility] Medical Decision Making Medical Screen Exam Complete: Yes Emergency Medical Condition: Yes Differential Diagnosis Adverse effect of anticoagulation versus intra-abdominal hemorrhage versus claudication versus paresthesias Narrative Course 56-year-old female presents to the emergency department for evaluation of abdominal bruising, numbness and tingling of left arm and left leg, and left groin pain. Patient is afebrile, vital signs are stable. She does have some bruising on her abdomen though she has no abdominal tenderness to palpation. She seems to be describing some numbness and tingling and poikilothermia in the left arm and left leg that occurred last night while she was working. The symptoms have since resolved. I reviewed the EMR from where the patient visited her PCP today and she sent her to the emergency department to get a CT of the abdomen with blood work. She has ordered outpatient ABIs to evaluate this paresthesia that sounds like claudication. CBC shows a thrombus that opinion with a platelet count of 31,000. CMP shows slightly decreased sodium and mild renal insufficiency with a creatinine of 1.31, BUN 19, GFR 42. Coags are unremarkable. Chest x-ray shows possible mass, recommended chest CT. CT of the abdomen and pelvis without contrast shows multiple low density liver lesions consistent with metastatic disease. Chest CT shows right lung mass and nodules with mediastinal adenopathy and metastatic lesions in the upper abdomen as described. I discussed all findings with the patient. She is made aware of metastatic malignancy and probable lung cancer as source. I recommended admission to the patient for further evaluation and management of this newly diagnosed malignancy. The patient states that she has an appointment 3 days from now with her PCP and would prefer to follow up as an outpatient with them on Tuesday. She states that she has a disabled daughter at home that she has to take care of and cannot leave her alone. Because the patient has decent follow- up because reasonable for her to be discharged and follow-up as an outpatient. I did discuss with her signs and symptoms of when to return to the emergency department. I discussed with her that her platelets are low and that if she develops any worsening bruising, pain or bleeding that she should return immediately to the emergency department. Patient verbalizes understanding and is in agreement with treatment plan. I discussed the case with my attending physician Dr. Lindo who is aware of the patients history, physical examination findings, and treatment plan. Diagnosis Primary Impression: Metastatic cancer Additional Impression: Thrombocytopenia Referrals: Primary Care Physician Patient Instructions: General Instructions Additional Instructions: Call your doctor's office in the morning. Follow-up with your Primary Care Physician on Tuesday as scheduled. You will need to see an Oncologist as soon as possible. Return to the ED for any acute worsening of symptoms such as abdominal pain, chest pain, bleeding, worsening bruising. Med/Other Pt SpecificInfo: No Change to Meds Disposition: 01 DISCHARGE HOME Condition: Stable Odalys Saenz Nov 25, 2016 19:07
[2016-11-25 19:13] LABS: APTT (PATIENT) 26.4 SEC (24.3-30.1); INTERNATIONAL NORMALIZED RATIO 1.2 RATIO; PROTHROMBIN TIME - PATIENT 12.8 SEC (9.8-11.6)
[2016-11-25 19:26] LABS: ALT (GPT) 25 U/L (10-53); ANION GAP 6 MEQ/L (5-15); AST (GOT) 37 U/L (15-37); BICARBONATE 28.6 MEQ/L (21.0-32.0); BLOOD UREA NITROGEN 19 MG/DL (7-18); CHLORIDE 99 MEQ/L (98-107); GLOMERULAR FILTRATION RATE 42 ML/MIN (>89); SODIUM (NA) 134 MEQ/L (136-145)
[2016-11-25 19:29] LABS: ALKALINE PHOSPHATASE 137 U/L (45-117); TOTAL BILIRUBIN ADULT 0.3 MG/DL (0.2-1.0)
--- NOTE | 2016-11-25 19:43 | RADRPT ---
EXAM DATE/TIME: 11/25/2016 19:11 [facility] COMPARISON: No previous studies available for comparison. INDICATIONS : Abdominal pain with bruising. ORAL CONTRAST: No oral contrast ingested. RADIATION DOSE: 9.14 CTDIvol (mGy) MEDICAL HISTORY : Cardiovascular disease. Gastroesophageal reflux disease. Hx of anticoagulation. SURGICAL HISTORY : Lumbar sx. ENCOUNTER: Initial ACUITY: 1 day PAIN SCALE: 8/10 LOCATION: Left lower quadrant abdomen TECHNIQUE: Volumetric scanning of the abdomen and pelvis was performed. Using automated exposure control and ad justment of the mA and/or kV according to patient size, radiation dose was kept as low as reasonably achievable to obtain optimal diagnostic quality images. FINDINGS: LOWER LUNGS: The visualized lower lungs are clear. LIVER: There are multiple low density liver lesions present involving both right and left lobes of liver, se veral largest of which exceed 3 cm in diameter. There is no evidence of biliary ductal dilatation. SPLEEN: Normal size without lesion. PANCREAS: Within normal limits. KIDNEYS: Mild atrophy of the right kidney. Multiple right renal cysts present. No evidence of hydronephrosis. ADRENAL GLANDS: Within normal limits. VASCULAR: Bilobed or hour glass shaped abdominal aortic aneurysm with maximum diameter of 4.1 cm terminating at the aortic bifurcation. BOWEL/MESENTERY: The stomach, small bowel, and colon demonstrate no acute abnormality. There is no free intraperitone al air or fluid. ABDOMINAL WALL: Within normal limits. RETROPERITONEUM: There is no lymphadenopathy. BLADDER: No wall thickening or mass. REPRODUCTIVE: Within normal limits. INGUINAL: There is no lymphadenopathy or hernia. MUSCULOSKELETAL: Within normal limits for patient age. CONCLUSION: Multiple low density liver lesions consistent with metastatic disease. Atrophic right kidney containing numerous probable cysts. Jim Campbell MD on November 25, 2016 at 19:36 Board Certified Radiologist. This report was verified electronically.
--- NOTE | 2016-11-25 19:47 | RADRPT ---
EXAM DATE/TIME: 11/25/2016 19:34 [facility] COMPARISON: No previous studies available for comparison. INDICATIONS : Cough and shortness of breath. MEDICAL HISTORY : Asthma. Hypercholesterolemia. Deep venous thrombosis. Gastroesophageal reflux disease. Headache. Myoc ardial infarction. Coronary artery disease. Anticoagulant therapy.Hyperlipidemia. Hypertension. Pregn karina. Arthritis. Anxiety. SURGICAL HISTORY : Tonsillectomy. Coronary artery stent. Deviated septum repair. Back surgery. ENCOUNTER: Subsequent ACUITY: 1 day PAIN SCORE: 0/10 LOCATION: Bilateral chest FINDINGS: There is abnormal azygos and right paratracheal region soft tissue density. This is worrisome for mas s or adenopathy. CONCLUSION: Abnormal chest appearance. Recommend CT chest for definitive evaluation. Jim Campbell MD on November 25, 2016 at 19:44 Board Certified Radiologist. This report was verified electronically.
[2016-11-25 19:52] LABS: HEMO FLAGS AUTO DIFF
[2016-11-25 20:03] LABS: PLATELET ESTIMATE SMEAR RARE (NORMAL); PLATELET MORPHOLOGY NORMAL (NORMAL); SCAN/DIFF AUTO DIFF CONFIRMED
--- NOTE | 2016-11-25 20:24 | PD ---
Physical Exam Narrative I, Dr. Lindo, have reviewed the advance practice practitioner's documentation and am in agreement, met with the patient face to face, made the diagnosis, and the medical decision making was done by me. *My assessment and Findings: Thrombocytopenia vs. intraabdominal bleed 56yo F on xarelto sent here by PMD for blood work and CTa/p because of the ecchymoses on her abdomen. Pt states she has no pain in abdomen and denies any trauma. Labs reviewed, thrombocytopenic at 31,000. This is new compare to her last lab work in 2007. Creatinine elevated at 1.31 which is at her baseline. Alk phos elevated at 137. CXR showed abnormal chest appearance. Recommend CT chest for definitive evaluation. CTa/p showed multiple low density liver lesions consistent with metastatic disease. CT chest showed right lung mass and nodules with mediastinal adenopathy and metastatic lesions in the upper abdomen. Pt reevaluated at bedside and does not want to stay for heme/onc evaluation. Pt states she has appointment with PMD on Tuesday and has special needs daughter at home. Return precautions given. Data Data Last Documented VS Vital Signs Date Time Temp Pulse Resp B/P Pulse Ox O2 Delivery O2 Flow Rate FiO2 11/25/16 22:07 87 18 147/73 98 Room Air 11/25/16 17:18 98.7 Orders Complete Blood Count With Diff (11/25/16 18:36) Comprehensive Metabolic Panel (11/25/16 18:36) Prothrombin Time / Inr (Pt) (11/25/16 18:36) Act Partial Throm Time (Ptt) (11/25/16 18:36) Ct Abd/Pel W/O Iv Contrast (11/25/16 18:36) Iv Access Insert/Monitor (11/25/16 18:36) Ecg Monitoring (11/25/16 18:36) Oximetry (11/25/16 18:36) Sodium Chloride 0.9% Flush (Ns Flush) (11/25/16 18:45) Chest, Single Ap (11/25/16 19:16) Ct Thorax/ Chest Wo Iv Contras (11/25/16 19:57) Labs Laboratory Tests Test 11/25/16 18:44 White Blood Count 8.9 TH/MM3 Red Blood Count 4.75 MIL/MM3 Hemoglobin 13.6 GM/DL Hematocrit 41.5 % Mean Corpuscular Volume 87.3 FL Mean Corpuscular Hemoglobin 28.7 PG Mean Corpuscular Hemoglobin 32.8 % Concent Red Cell Distribution Width 14.7 % Platelet Count 31 TH/MM3 Mean Platelet Volume 9.8 FL Neutrophils (%) (Auto) 61.5 % Lymphocytes (%) (Auto) 20.7 % Monocytes (%) (Auto) 8.8 % Eosinophils (%) (Auto) 7.7 % Basophils (%) (Auto) 1.3 % Neutrophils # (Auto) 5.5 TH/MM3 Lymphocytes # (Auto) 1.8 TH/MM3 Monocytes # (Auto) 0.8 TH/MM3 Eosinophils # (Auto) 0.7 TH/MM3 Basophils # (Auto) 0.1 TH/MM3 CBC Comment AUTO DIFF Differential Comment AUTO DIFF CONFIRMED Platelet Estimate RARE Platelet Morphology Comment NORMAL Prothrombin Time 12.8 SEC Prothromb Time International 1.2 RATIO Ratio Activated Partial 26.4 SEC Thromboplast Time Sodium Level 134 MEQ/L Potassium Level 4.0 MEQ/L Chloride Level 99 MEQ/L Carbon Dioxide Level 28.6 MEQ/L Anion Gap 6 MEQ/L Blood Urea Nitrogen 19 MG/DL Creatinine 1.31 MG/DL Estimat Glomerular Filtration 42 ML/MIN Rate Random Glucose 86 MG/DL Calcium Level 8.5 MG/DL Total Bilirubin 0.3 MG/DL Aspartate Amino Transf 37 U/L (AST/SGOT) Alanine Aminotransferase 25 U/L (ALT/SGPT) Alkaline Phosphatase 137 U/L Total Protein 6.8 GM/DL Albumin 3.6 GM/DL [facility] Supervised Visit with KRIS: Yes Diagnosis Primary Impression: Thrombocytopenia Andressa Lindo DO Nov 25, 2016 20:24
--- NOTE | 2016-11-25 21:12 | RADRPT ---
EXAM DATE/TIME: 11/25/2016 20:24 [facility] COMPARISON: CHEST SINGLE AP, November 25, 2016, 19:34. INDICATIONS : Cough and shortness of breath. RADIATION DOSE: 3.33 CTDIvol (mGy) MEDICAL HISTORY : Cardiovascular disease. Hypertension. SURGICAL HISTORY : None. ENCOUNTER: Initial ACUITY: 1 day PAIN SCALE: 0/10 LOCATION: Bilateral chest TECHNIQUE: Volumetric scanning of the chest was performed. Using automated exposure control and adjustment of t he mA and/or kV according to patient size, radiation dose was kept as low as reasonably achievable to obtain optimal diagnostic quality images. FINDINGS: LUNGS: There is a 17 mm right perihilar lung mass. Additional smaller nodules are present elsewhere in the r ight lung, including in the medial right upper lobe abutting the mediastinal pleural surface, adjacen t to the lower lateral aspect of the right major fissure and in the posterior right costophrenic sulc us area the left lung is grossly clear. PLEURAE: There is no pleural thickening or pleural effusion. MEDIASTINUM: Bulky mediastinal adenopathy including greater than 4 cm rosangela masses in the right paratracheal/azygo s region and in the subcarinal region with smaller nodes in the prevascular space and AP window. AXILLAE: Within normal limits. No lymphadenopathy. MUSCULOSKELETAL: Within normal limits for patient age. MISCELLANEOUS: Multiple low density liver lesions of varying sizes involving both right and left lobes. Incompletely seen probable right adrenal mass. CONCLUSION: Right lung mass and nodules with mediastinal adenopathy and metastatic lesions in the upper abdomen a s described. Jim Campbell MD on November 25, 2016 at 21:03 Board Certified Radiologist. This report was verified electronically.
[2016-11-25 22:07] VITALS: BP 147/73; PULSE 87; RESP 18; O2SAT 98
[2016-12-13] MEDS ORDERED: DILA2TAB2 PO (15:55)
== END 2016-11-25 22:07 | disposition home or self-care (01) ==
LOC: NEPE 17:16
DX: C80.1 Malignant (primary) neoplasm, unspecified (principal); C78.7 Secondary malignant neoplasm of liver and intrahepatic bile duct; D69.6 Thrombocytopenia, unspecified
CPT/HCPCS: 71010; 71250; 74176; 80053; 85025; 85610; 85730

== ENCOUNTER 2016-12-02 20:18 | Inpatient (IN) | payer OTHER ==
[~2016-12-02] VITALS: Ht 149.9 cm; Wt 58.0 kg
[~2016-12-02 20:18] MED LIST changes: +RANI150T PO; -XARE20TA PO; -ZANT150T2 PO
[2016-12-02 20:21] VITALS: BP 178/86; PULSE 99; RESP 18; TEMP 98.7; O2SAT 100
--- NOTE | 2016-12-02 21:35 | PD ---
HPI Chief Complaint: Abnormal Results Time Seen by Provider: 21:35 Travel History International Travel<30 days: No Contact w/Intl Traveler<30days: No Traveled to known affect area: No History of Present Illness HPI 56-year-old female with history of hypertension, hyperlipidemia, [place] with stents , COPD, tobacco abuse, asthma, DVT, recently diagnosed with lung cancer with metastases to her liver, presents to emergency department for evaluation of low platelets. Patient followed up with Dr. Mis Fletcher on Tuesday following a recent visit to the ER where she was diagnosed with her cancer and was found to have platelet count of 30. Repeat lab work resulted and she was advised to come the the emergency department today. Patient was told that her platelet count was 15. Patient has been bruising on her trunk and extremities. She began having a left sided headache today which she typically does not get. Denies any worsening chest pain or shortness of breath. States that she was supposed to have MRI today for further evaluation of her metastatic disease however she was unable to make it to the appointment. Patient denies any black tarry or elizabeth red bloody stools. Denies any hemoptysis. Patient has no other symptoms to report. Note patient was on xarelto for history of DVT however on Tuesday she was advised to stop taking this. Her last dose was November 29. PFSH Past Medical History Hx Anticoagulant Therapy: Yes (XARELTO STOPPED 11/29/16) Arthritis: Yes Asthma: Yes Blood Disorders: No Cancer: No Cardiac Catheterization: Yes (1 stent) Cardiovascular Problems: Yes (HX OF [place] ) High Cholesterol: Yes Coronary Artery Disease: Yes Deep Vein Thrombosis: Yes Endocrine: No GERD: Yes Genitourinary: No Headaches: Yes Hypertension: Yes Immune Disorder: No Psychiatric: No Reproductive: No Respiratory: Yes Immunizations Current: Yes Myocardial Infarction: Yes ?: Not Menopausal: Yes : 2 Para: 1 : 1 Past Surgical History Cardiac Surgery: Yes (STENT PLACED) Tonsillectomy: Yes ( A KID PER PT) Other Surgery: No Social History Alcohol Use: No Tobacco Use: Yes (1 PPD) Substance Use: No Allergies-Medications (Allergen,Severity, Reaction): Coded Allergies: Codeine (Verified Allergy, Severe, HEART RACES, 12/02/16) Contrast Media (Verified Allergy, Severe, Headache, 12/02/16) Lortab (Verified Allergy, Severe, SEVERE ITCHING, 12/02/16) Flexeril (Verified Allergy, Intermediate, 12/02/16) Lipitor (Verified Allergy, Intermediate, 12/02/16) Nitro-Dur (Verified Adverse Reaction, Intermediate, drop in blood pressure too fast, 12/02/16) Reported Meds & Prescriptions Reported Meds & Active Scripts Active Ventolin Hfa 18 GM Inh (Albuterol Sulfate) 90 Mcg/Act Aer 2 Puff INH Q4-6H PRN Prednisone 20 Mg Tab 40 Mg PO DAILY Take 40 mg (2 tablets) daily for 5 days Azithromycin 500 Mg Tab 500 Mg PO DAILY Ala-Arnol Topical (Hydrocortisone (Topical)) 2.5% Cream 1 Applic TOPICAL DIRECTED Metoprolol Tartrate 25 Mg Tab 25 Mg PO BID Hydrochlorothiazide 25 Mg Tab 25 Mg PO DAILY Captopril 50 Mg Tab 50 Mg PO BIDAC Take 1 hour before meals. Xanax (Alprazolam) 0.5 Mg Tab 0.5 Mg PO BID PRN Zocor (Simvastatin) 80 Mg Tab 80 Mg PO DAILY Reported Ranitidine (Ranitidine HCl) 150 Mg Tab 150 Mg PO DAILY PRN Review of Systems Except as stated in HPI: all other systems reviewed are Neg Physical Exam Narrative GENERAL: Ill-appearing female patient, sitting up in the bed, in no acute distress SKIN: Focused skin assessment warm/dry. There is bruising on the abdomen, right flank, posterior trunk. There is also ecchymosis on the bilateral upper and lower extremities. HEAD: Atraumatic. Normocephalic. EYES: Pupils equal and round. No scleral icterus. No injection or drainage. ENT: No nasal bleeding or discharge. Mucous membranes pink and moist. NECK: Trachea midline. No JVD. CARDIOVASCULAR: Elevated rate and rhythm. No murmur appreciated. RESPIRATORY: No accessory muscle use. Coarse, Diminished throughout. Breath sounds equal bilaterally. GASTROINTESTINAL: Abdomen soft, non-tender, nondistended. Hepatic and splenic margins not palpable. MUSCULOSKELETAL: No obvious deformities. No clubbing. No cyanosis. NEUROLOGICAL: Awake and alert. No obvious cranial nerve deficits. Motor grossly within normal limits. Normal speech. PSYCHIATRIC: Flat affect. Data Data Last Documented VS Vital Signs Date Time Temp Pulse Resp B/P Pulse Ox O2 Delivery O2 Flow Rate FiO2 12/02/16 21:32 92 14 100 Room Air 12/02/16 20:21 98.7 178/86 Orders Complete Blood Count With Diff (12/02/16 21:33) Comprehensive Metabolic Panel (12/02/16 21:33) Prothrombin Time / Inr (Pt) (12/02/16 21:33) Act Partial Throm Time (Ptt) (12/02/16 21:33) Urinalysis - C+S If Indicated (12/02/16 21:33) Iv Access Insert/Monitor (12/02/16 21:33) Ecg Monitoring (12/02/16 21:33) Oximetry (12/02/16 21:33) Sodium Chloride 0.9% Flush (Ns Flush) (12/02/16 21:45) Electrocardiogram (12/02/16 21:33) Ct Brain W/O Iv Contrast(Rout) (12/02/16 ) Type And Screen (12/02/16 21:37) Platelet Pheresis (12/02/16 22:19) Blood Product Administration .UPON TRANSFUSION (12/02/16 22:19) Sodium Chlor 0.9% 250 Ml Inj (Ns 250 Ml (12/02/16 22:30) Labs Laboratory Tests Test 12/02/16 12/02/16 12/02/16 21:51 21:53 22:46 White Blood Count 12.2 TH/MM3 Red Blood Count 4.56 MIL/MM3 Hemoglobin 13.3 GM/DL Hematocrit 39.2 % Mean Corpuscular Volume 86.1 FL Mean Corpuscular Hemoglobin 29.2 PG Mean Corpuscular Hemoglobin 33.9 % Concent Red Cell Distribution Width 14.8 % Platelet Count 14 TH/MM3 Mean Platelet Volume 9.6 FL Neutrophils (%) (Auto) 65.0 % Lymphocytes (%) (Auto) 18.6 % Monocytes (%) (Auto) 7.6 % Eosinophils (%) (Auto) 8.0 % Basophils (%) (Auto) 0.8 % Neutrophils # (Auto) 7.9 TH/MM3 Lymphocytes # (Auto) 2.3 TH/MM3 Monocytes # (Auto) 0.9 TH/MM3 Eosinophils # (Auto) 1.0 TH/MM3 Basophils # (Auto) 0.1 TH/MM3 CBC Comment AUTO DIFF Differential Comment AUTO DIFF CONFIRMED Prothrombin Time 12.7 SEC Prothromb Time International 1.1 RATIO Ratio Activated Partial 26.6 SEC Thromboplast Time Urine Color LIGHT-YELLOW Urine Turbidity CLEAR Urine pH 6.0 Urine Specific [place] 1.008 Urine Protein 100 mg/dL Urine Glucose (UA) NEG mg/dL Urine Ketones NEG mg/dL Urine Occult Blood MOD Urine Nitrite NEG Urine Bilirubin NEG Urine Urobilinogen LESS THAN 2.0 MG/DL Urine Leukocyte Esterase NEG Urine RBC 4 /hpf Urine WBC 1 /hpf Urine Squamous Epithelial <1 /hpf Cells Urine Bacteria RARE /hpf Microscopic Urinalysis Comment CULT NOT INDICATED Sodium Level 137 MEQ/L Potassium Level 3.7 MEQ/L Chloride Level 101 MEQ/L Carbon Dioxide Level 25.9 MEQ/L Anion Gap 10 MEQ/L Blood Urea Nitrogen 26 MG/DL Creatinine 1.65 MG/DL Estimat Glomerular Filtration 32 ML/MIN Rate Random Glucose 87 MG/DL Calcium Level 7.7 MG/DL Total Bilirubin 0.6 MG/DL Aspartate Amino Transf 28 U/L (AST/SGOT) Alanine Aminotransferase 22 U/L (ALT/SGPT) Alkaline Phosphatase 130 U/L Total Protein 6.5 GM/DL Albumin 3.3 GM/DL Blood Type A POSITIVE Blood Bank Comment MDM Medical Decision Making Medical Screen Exam Complete: Yes Emergency Medical Condition: Yes Medical Record Reviewed: Yes Differential Diagnosis thrombocytopenia versus metastatic disease versus sepsis versus ich versus headache versus electrolyte abnormality Narrative Course 56 year old female, recently diagnosed with metastatic lung ca presents today for evaluation of thrombocytopenia. Pt has yet to follow up with oncology since her diagnosis. Repeat lab work and CT of the brain are ordered. CT imaging is negative for acute intracranial abnormality. Laboratory Tests Test 12/02/16 12/02/16 12/02/16 21:51 21:53 22:46 White Blood Count 12.2 TH/MM3 Red Blood Count 4.56 MIL/MM3 Hemoglobin 13.3 GM/DL Hematocrit 39.2 % Mean Corpuscular Volume 86.1 FL Mean Corpuscular Hemoglobin 29.2 PG Mean Corpuscular Hemoglobin 33.9 % Concent Red Cell Distribution Width 14.8 % Platelet Count 14 TH/MM3 Mean Platelet Volume 9.6 FL Neutrophils (%) (Auto) 65.0 % Lymphocytes (%) (Auto) 18.6 % Monocytes (%) (Auto) 7.6 % Eosinophils (%) (Auto) 8.0 % Basophils (%) (Auto) 0.8 % Neutrophils # (Auto) 7.9 TH/MM3 Lymphocytes # (Auto) 2.3 TH/MM3 Monocytes # (Auto) 0.9 TH/MM3 Eosinophils # (Auto) 1.0 TH/MM3 Basophils # (Auto) 0.1 TH/MM3 CBC Comment AUTO DIFF Differential Comment AUTO DIFF CONFIRMED Prothrombin Time 12.7 SEC Prothromb Time International 1.1 RATIO Ratio Activated Partial 26.6 SEC Thromboplast Time Urine Color LIGHT-YELLOW Urine Turbidity CLEAR Urine pH 6.0 Urine Specific [place] 1.008 Urine Protein 100 mg/dL Urine Glucose (UA) NEG mg/dL Urine Ketones NEG mg/dL Urine Occult Blood MOD Urine Nitrite NEG Urine Bilirubin NEG Urine Urobilinogen LESS THAN 2.0 MG/DL Urine Leukocyte Esterase NEG Urine RBC 4 /hpf Urine WBC 1 /hpf Urine Squamous Epithelial <1 /hpf Cells Urine Bacteria RARE /hpf Microscopic Urinalysis Comment CULT NOT INDICATED Sodium Level 137 MEQ/L Potassium Level 3.7 MEQ/L Chloride Level 101 MEQ/L Carbon Dioxide Level 25.9 MEQ/L Anion Gap 10 MEQ/L Blood Urea Nitrogen 26 MG/DL Creatinine 1.65 MG/DL Estimat Glomerular Filtration 32 ML/MIN Rate Random Glucose 87 MG/DL Calcium Level 7.7 MG/DL Total Bilirubin 0.6 MG/DL Aspartate Amino Transf 28 U/L (AST/SGOT) Alanine Aminotransferase 22 U/L (ALT/SGPT) Alkaline Phosphatase 130 U/L Total Protein 6.5 GM/DL Albumin 3.3 GM/DL Blood Type A POSITIVE Blood Bank Comment I discussed the patient my attending physician. Pt will be given 6 units platelets. A call has been placed to resident service; pt will be admitted to their service. Diagnosis Primary Impression: Thrombocytopenia Additional Impressions: Bruising Metastatic cancer Admitting Information Admitting Physician Requests: Admit Condition: Stable SinclairStephen hamiltonjoe CONNOLLY Dec 02, 2016 21:35
[2016-12-02] MEDS ORDERED: SODIUM CHLORIDE 0.9% FLUSH 10 ML FLUSH IV FLUSH PRN (21:45)
[2016-12-02 22:05] LABS: AUTOMATED NEUTROPHIL # 7.9 TH/MM3 (1.8-7.7); BASOPHIL # 0.1 TH/MM3 (0-0.2); BASOPHIL % 0.8 % (0.0-2.0); HEMATOCRIT 39.2 % (35.0-46.0); LYMPH % 18.6 % (9.0-44.0); LYMPHOCYTE # 2.3 TH/MM3 (1.0-4.8); MEAN CELL VOLUME 86.1 FL (80.0-100.0); MEAN CORPUSCULAR HEMOGLOBIN 29.2 PG (27.0-34.0); MEAN CORPUSCULAR HGB CONC 33.9 % (32.0-36.0); MONO % 7.6 % (0.0-8.0); RED BLOOD COUNT 4.56 MIL/MM3 (4.00-5.30); RED CELL DISTRIBUTION WIDTH 14.8 % (11.6-17.2); WHITE BLOOD COUNT 12.2 TH/MM3 (4.0-11.0)
[2016-12-02 22:08] LABS: HEMO FLAGS AUTO DIFF
[2016-12-02 22:11] LABS: PLATELET COUNT 14 TH/MM3 (150-450)
[2016-12-02 22:23] LABS: APTT (PATIENT) 26.6 SEC (24.3-30.1); INTERNATIONAL NORMALIZED RATIO 1.1 RATIO; PROTHROMBIN TIME - PATIENT 12.7 SEC (9.8-11.6)
[2016-12-02 22:27] LABS: BACTERIA, URINE RARE /hpf; BLOOD, URINE MOD (NEG); COMMENT (UR) CULT NOT INDICATED; CULTURE IF INDICATED CULT NOT INDICATED; GLUCOSE,URINE NEG (NEG); KETONE, URINE NEG (NEG); NITRITE,URINE NEG (NEG); SQUAMOUS EPITHELIAL CELL URINE <1 /hpf (0-5); URINE COLOR LIGHT-YELLOW (YELLW/STRAW)
[2016-12-02] MEDS ORDERED: SODIUM CHLOR 0.9% 250 ML INJ 250 ML IV ONE (22:30)
[2016-12-02 22:31] LABS: ANION GAP 10 MEQ/L (5-15); AST (GOT) 28 U/L (15-37); BICARBONATE 25.9 MEQ/L (21.0-32.0); BLOOD UREA NITROGEN 26 MG/DL (7-18); CHLORIDE 101 MEQ/L (98-107); GLOMERULAR FILTRATION RATE 32 ML/MIN (>89); POTASSIUM 3.7 MEQ/L (3.5-5.1); SODIUM (NA) 137 MEQ/L (136-145)
--- NOTE | 2016-12-02 22:31 | RADRPT ---
EXAM DATE/TIME: 12/02/2016 22:14 [facility] COMPARISON: No previous studies available for comparison. INDICATIONS : Cephalgia. RADIATION DOSE: 34.89 CTDIvol (mGy) MEDICAL HISTORY : Hypertension. Deep venous thrombosis. SURGICAL HISTORY : None. ENCOUNTER: Initial ACUITY: 1 day PAIN SCALE: 7/10 LOCATION: cranial TECHNIQUE: Multiple contiguous axial images were obtained of the head. Using automated exposure control and adj ustment of the mA and/or kV according to patient size, radiation dose was kept as low as reasonably a chievable to obtain optimal diagnostic quality images. FINDINGS: CEREBRUM: The ventricles are normal for age. No evidence of midline shift, mass lesion, hemorrhage or acute in farction. No extra-axial fluid collections are seen. POSTERIOR FOSSA: The cerebellum and brainstem are intact. The 4th ventricle is midline. The cerebellopontine angle i s unremarkable. EXTRACRANIAL: The visualized portion of the orbits is intact. SKULL: The calvaria is intact. No evidence of skull fracture. CONCLUSION: Negative noncontrast head CT Jim Sena MD on December 02, 2016 at 22:28 Board Certified Radiologist. This report was verified electronically.
[2016-12-02 22:36] LABS: ALKALINE PHOSPHATASE 130 U/L (45-117); ALT (GPT) 22 U/L (10-53); TOTAL BILIRUBIN ADULT 0.6 MG/DL (0.2-1.0)
[2016-12-02 22:38] LABS: SCAN/DIFF AUTO DIFF CONFIRMED
[2016-12-02 23:54] VITALS: BP 133/63; PULSE 89; RESP 14; TEMP 98.8; O2SAT 98
[2016-12-03] VITALS (7 sets, daily range): BP systolic 108–166; BP diastolic 60–89; PULSE 64–96; RESP 16–17; TEMP 95.8–97.4; O2SAT 93–99
[2016-12-03] MEDS ORDERED: ONDANSETRON HCL 4 MG/2 ML VIAL IVP PRN (00:30)
[2016-12-03] MEDS ORDERED: SODIUM CHLORIDE 0.9% FLUSH 10 ML FLUSH IV FLUSH PRN (00:30)
[2016-12-03] MEDS ORDERED: NALOXONE HCL 0.4 MG/ML AMP IV PRN (00:30)
[2016-12-03] MEDS: SODIUM CHLORIDE 0.9% FLUSH 10 ML FLUSH IV FLUSH SCH ×3 (00:30→20:41)
--- NOTE | 2016-12-03 00:37 | HHI.HP ---
HPI Service Family Medicine Primary Care Physician Mis Fletcher MD Admission Diagnosis thrombocytopenia; bruising; metastatic cancer Diagnoses: International Travel<30 Days: No Contact w/Intl Traveler<30days: No Known Affected Area: No History of Present Illness Maame Borrego is a very pleasant 56 year old woman with PMH significant for COPD, left popliteal DVT found in 08/2016 had previously been on Xarelto last taken on 11/29, [place], HTN, HLD, and newly found right lung mass and metastatic lesions found in the liver on chest and abdomen/pelvis CT from 11/25/2016 sent to the ED by her primary care physician Dr. Mis Fletcher due to thrombocytopenia with a platelet count of 15,000. Patient was recently seen here in the ED on 11/25 sent by her PCP at that time for further evaluation of abdominal bruising and to obtain an abdomen/pelvis CT which showed the above metastatic lesions in her liver. Chest CT at this time found the right lung mass with mediastinal adenopathy. Patient on evaluation reports bruising over her abdomen as well as various locations on her extremities and back. She denies any melena, hematochezia, hematuria, hemoptysis, vaginal bleeding. Pt denies recent fevers or chills. States she has had a cough lingering since last May which has not worsened recently. She states sometimes her cough is productive of white phlegm however production has not worsened. Denies chest pain or SOB. She does endorse abdominal pain over the site of bruising but otherwise denies any other abdominal pain. She reports a headache that began while she was waiting for a bed in the ED. She points to her left temporal area, mild to moderate in severity. She usually has headaches located in the frontal region. Pain not radiating anywhere. She also reports numbness and tingling of her left upper and lower extremity which she states started occurring about one week ago. Numbness and tingling has not worsened over this week. Denies any weakness. Denies any other focal neuro deficit. Review of Systems Constitutional: DENIES: Fever, Chills Eyes: DENIES: Diplopia, Vision loss Respiratory: COMPLAINS OF: Cough, Sputum production, DENIES: Wheezing, Hemoptysis, Shortness of breath Cardiovascular: DENIES: Chest pain, Lower Extremity Edema Gastrointestinal: COMPLAINS OF: Abdominal pain, DENIES: Black stools, Bloody stools, Constipation, Diarrhea, Nausea, Vomiting Genitourinary: DENIES: Abnormal vaginal bleeding, Hematuria, Dysuria Hematologic/lymphatic: COMPLAINS OF: Bruising Neurologic: COMPLAINS OF: Headache, DENIES: Localized weakness, Speech Problems Past Family Social History Past Medical History HTN HLD TN in 2006 s/p stents Bronchial asthma COPD L. popliteal DVT diagnosed in August 2016 R. lung mass with liver lesions per CT 11/2016 Thrombocytopenia Abdominal aortic aneurysm, measuring 4.1cm per CT November 2016 Past Surgical History Back Surgery 1995 Stent placement in 2006 Tonsillectomy Allergies: Coded Allergies: Codeine (Verified Allergy, Severe, HEART RACES, 12/02/16) Contrast Media (Verified Allergy, Severe, Headache, 12/02/16) Lortab (Verified Allergy, Severe, SEVERE ITCHING, 12/02/16) Flexeril (Verified Allergy, Intermediate, 12/02/16) Lipitor (Verified Allergy, Intermediate, 12/02/16) Nitro-Dur (Verified Adverse Reaction, Intermediate, drop in blood pressure too fast, 12/02/16) Family History Mother: T2DM, secondary to lung cancer, DVTs Family history of unspecified cancer Social History Lives at home with her daughter that is special needs who she takes care of Tobacco: 1-1.5 PPD for majority of her life Etoh: denies Illicit drugs: denies Physical Exam Vital Signs Vital Signs Date Time Temp Pulse Resp B/P Pulse Ox O2 Delivery O2 Flow Rate FiO2 12/02/16 23:54 98.8 89 14 133/63 98 Room Air 12/02/16 21:32 92 14 100 Room Air 12/02/16 20:21 98.7 99 18 178/86 100 Room Air Physical Exam GENERAL: NAD, lying comfortably in bed NEURO: AOx3. Normal speech. custom framing specialist intact. Motor intact. 5/5 strength of upper extremities. 4/5 strength of left lower extremity. 5/5 strength RLE. Sensation intact throughout. SKIN: Warm and dry. Ecchymoses on abdomen, measuring about 4 x 4 cm above her umbilicus and another area of ecchymosis on left flank. Ecchymosis noted on right upper extremity. HEAD: Normocephalic. Atraumatic. EYES: PERRL. EOMI. No scleral icterus. No injection or drainage. ENT: No nasal drainage. Moist mucous membranes. No oral ulcers or lesions. NECK: Supple, trachea midline. No JVD. CARDIOVASCULAR: Regular rate and rhythm without murmurs, rubs, or gallops. Peripheral pulses 2+. Capillary refill < 2 seconds. RESPIRATORY: Breath sounds clear to auscultation and equal bilaterally, without wheezes, rales, or rhonchi. No accessory muscle use. GASTROINTESTINAL: Abdomen soft, nontender, nondistended, normal BS. No organomegaly or masses. No rebound tenderness. No guarding. MUSCULOSKELETAL: No edema, cyanosis, or clubbing. Normal range of motion. BACK: Nontender without obvious deformity. Laboratory Laboratory Tests Test 12/02/16 12/02/16 12/02/16 21:51 21:53 22:46 White Blood Count 12.2 Red Blood Count 4.56 Hemoglobin 13.3 Hematocrit 39.2 Mean Corpuscular Volume 86.1 Mean Corpuscular Hemoglobin 29.2 Mean Corpuscular Hemoglobin 33.9 Concent Red Cell Distribution Width 14.8 Platelet Count 14 Mean Platelet Volume 9.6 Neutrophils (%) (Auto) 65.0 Lymphocytes (%) (Auto) 18.6 Monocytes (%) (Auto) 7.6 Eosinophils (%) (Auto) 8.0 Basophils (%) (Auto) 0.8 Neutrophils # (Auto) 7.9 Lymphocytes # (Auto) 2.3 Monocytes # (Auto) 0.9 Eosinophils # (Auto) 1.0 Basophils # (Auto) 0.1 CBC Comment AUTO DIFF Differential Comment AUTO DIFF CONFIRMED Prothrombin Time 12.7 Prothromb Time International 1.1 Ratio Activated Partial 26.6 Thromboplast Time Urine Color LIGHT-YELLOW Urine Turbidity CLEAR Urine pH 6.0 Urine Specific [place] 1.008 Urine Protein 100 Urine Glucose (UA) NEG Urine Ketones NEG Urine Occult Blood MOD Urine Nitrite NEG Urine Bilirubin NEG Urine Urobilinogen LESS THAN 2.0 Urine Leukocyte Esterase NEG Urine RBC 4 Urine WBC 1 Urine Squamous Epithelial <1 Cells Urine Bacteria RARE Microscopic Urinalysis Comment CULT NOT INDICATED Sodium Level 137 Potassium Level 3.7 Chloride Level 101 Carbon Dioxide Level 25.9 Anion Gap 10 Blood Urea Nitrogen 26 Creatinine 1.65 Estimat Glomerular Filtration 32 Rate Random Glucose 87 Calcium Level 7.7 Total Bilirubin 0.6 Aspartate Amino Transf 28 (AST/SGOT) Alanine Aminotransferase 22 (ALT/SGPT) Alkaline Phosphatase 130 Total Protein 6.5 Albumin 3.3 Blood Type A POSITIVE Antibody Screen NEGATIVE Blood Bank Comment Result Diagram: 12/02/16215012/02/162150 Assessment and Plan Assessment and Plan Very pleasant 56 year old woman with PMH significant for COPD, left popliteal DVT found in 08/2016 had previously been on Xarelto last taken on 11/29, [place], HTN , HLD, and newly found right lung mass and metastatic lesions found in the liver on chest and abdomen/pelvis CT from 11/25/2016 sent to the ED by her primary care physician following her platelet count found to be at 15,000. Patient will be transfused one unit of platelets and hematology/oncology consulted for further recommendations and evaluation of suspected malignancy with metastases. Code Status Full code Discussed Condition With Dr. Edwardo Douglass Problem List: (1) Thrombocytopenia Status: Acute Plan: Platelets 14,000 on admission Will transfuse 1 unit of leukocyte reduced pheresis platelets Trend CBC Consult hematology/oncology, appreciate recs (2) Mass of right lung Status: Acute Plan: Right lung mass with metastatic lesions found in the liver on chest and abdomen/pelvis CT from 11/25 Consult hematology/oncology Obtain MRI of brain and entire spine to evaluate for possible further metastatic lesions (3) Headache Status: Acute Plan: Mild/moderate severity headache; patient also reporting numbness and tingling of left upper and lower extremity Head CT negative Neuro exam reassuring at this time Will obtain MRI of brain and entire spine to evaluate for possible further metastatic lesions Neuro checks q4h (4) COPD (chronic obstructive pulmonary disease) Status: Chronic Plan: Duonebs / albuterol q4h prn Supplemental O2 as needed to maintain O2 sats > 88% (5) HTN (hypertension) Status: Chronic Plan: Continue home captopril, hctz, lopressor Monitor vitals q4h (6) Nutrition, metabolism, and development symptoms Status: Acute Plan: Fluids: not indicated Electrolytes: WNLs Nutrition: regular diet DVT ppx: b/l SCDs Physician Certification 2 Midnight Certification Type: Admission for Inpatient Services Order for Inpatient Services The services are ordered in accordance with Medicare regulations or non- Medicare payer requirements, as applicable. In the case of services not specified as inpatient-only, they are appropriately provided as inpatient services in accordance with the 2-midnight benchmark. Estimated LOS (days): 2 days is the estimated time the patient will need to remain in the hospital, assuming treatment plan goals are met and no additional complications. Post-Hospital Plan: Home Colten Wilks MD R1 Dec 03, 2016 00:37
[2016-12-03] MEDS ORDERED: RESP: ALBUTEROL 2.5 MG/3 ML NEB (PRN) NEB (00:45)
[2016-12-03] MEDS ORDERED: ALPRAZolam 0.5 MG TAB PO PRN (00:45)
[2016-12-03] MEDS: CAPTOPRIL 50 MG TAB PO SCH ×2 (07:20→15:45)
[2016-12-03] MEDS ORDERED: diphenhydrAMINE HCL 25 MG CAP PO PRN ×3 (08:45→23:45)
[2016-12-03] MEDS: METOPROLOL TARTRATE 25 MG TAB PO SCH ×2 (09:40→20:41)
[2016-12-03] MEDS: HYDROCHLOROTHIAZIDE 25 MG TAB PO SCH (09:40)
[2016-12-03] MEDS: PRAVASTATIN SOD 80 MG TAB PO SCH (09:40)
[2016-12-03] MEDS ORDERED: diphenhydrAMINE HCL 50 MG CAP PO ONE (09:45)
--- NOTE | 2016-12-03 12:19 | HHI.FPPN ---
Subjective Remarks Patient seen, examined and discussed with the medicine team. This is a very pleasant 56-year-old female patient of Dr. Mis Fletcher who was found to have significant bruising and a platelet count of 15,000. She is known to have COPD, a left popliteal DVT in August 2016 for which she took Xarelto until November 29 and none since. 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 This is a patient with the nearly lifelong history of 1-1-1/2 packs of cigarettes daily. She was to have had an appointment as an outpatient with hematology/oncology but there was some confusion with the referral. She has noticed significant bruising all over her body with minimal if any trauma. Please see history and physical examination for this hospitalization for additional past, family, social history and review of systems at the time of admission. This morning, her headache has improved with Tylenol. She still notes significant bruising but has had a unit of platelets. She has no complaints this morning, no shortness of breath or leg discomfort or pain. Objective Vitals Vital Signs Date Time Temp Pulse Resp B/P Pulse Ox O2 Delivery O2 Flow Rate FiO2 12/03/16 08:00 95.8 64 16 166/86 99 12/03/16 04:00 97.3 96 16 121/71 93 12/03/16 01:30 96.7 91 16 135/83 99 12/03/16 00:38 98 12/02/16 23:54 98.8 89 14 133/63 98 Room Air 12/02/16 21:32 92 14 100 Room Air 12/02/16 20:21 98.7 99 18 178/86 100 Room Air I/O 12/02/16 12/02/16 12/02/16 12/03/16 12/03/16 12/03/16 07:00 15:00 23:00 07:00 15:00 23:00 Intake Total 746 ml Balance 746 ml Intake Oral 480 ml Platelets 266 ml # Voids 4 # Bowel Movements 0 Result Diagram: 12/02/16215012/02/162150 Other Results Laboratory Tests Test 12/02/16 21:51 White Blood Count 12.2 TH/MM3 Platelet Count 14 TH/MM3 Eosinophils (%) (Auto) 8.0 % Neutrophils # (Auto) 7.9 TH/MM3 Eosinophils # (Auto) 1.0 TH/MM3 Prothrombin Time 12.7 SEC Urine Protein 100 mg/dL Urine Occult Blood MOD Urine RBC 4 /hpf Urine Bacteria RARE /hpf Blood Urea Nitrogen 26 MG/DL Creatinine 1.65 MG/DL Estimat Glomerular Filtration 32 ML/MIN Rate Calcium Level 7.7 MG/DL Alkaline Phosphatase 130 U/L Albumin 3.3 GM/DL Imaging Last Impressions Head CT 12/02/16 0000 Signed Impressions: Service Date/Time: November 22:14 - CONCLUSION: Negative noncontrast head CT Jim Sena MD Objective Remarks O. CONSTITUTIONAL/GEN: normally nourished, in NAD. EYES: conjunctiva normal, PERRLA, EOMI. ENT: Mouth and pharynx normal. NECK: No palpable lymphadenopathy LUNGS: clear A-P, respiratory effort is normal. CARDIOVASCULAR: RR without murmur or gallop. No significant edema. GI/ABD: soft without masses, without organomegaly. NEURO: No focal deficits. SKIN: Multiple ecchymotic areas scattered over her extremities and trunk. HEME/LYMPH: Ecchymoses noted scattered throughout extremities and trunk. MUSC: back is normal in appearance. Extremities are normal in appearance with the exception of significant bruising. PSYCH/MENTAL STATUS: Alert and oriented x 3. A/P Assessment and Plan Very pleasant 56 year old woman with PMH significant for COPD, left popliteal DVT found in 08/2016 had previously been on Xarelto last taken on 11/29, [place], HTN , HLD, and newly found right lung mass and metastatic lesions found in the liver on chest and abdomen/pelvis CT from 11/25/2016 sent to the ED by her primary care physician following her platelet count found to be at 15,000. Patient will be transfused one unit of platelets and hematology/oncology consulted for further recommendations and evaluation of suspected malignancy with metastases. Attending Attestation Patient seen and examined. Case reviewed and discussed with the resident team. Agree with plan of care as discussed with me and documented in the resident note. Problem List: (1) Thrombocytopenia Status: Acute Plan: Platelets 14,000 on admission Will transfuse 1 unit of leukocyte reduced pheresis platelets Trend CBC Consult hematology/oncology, appreciate recs (2) Mass of right lung Status: Acute Plan: Right lung mass with metastatic lesions found in the liver on chest and abdomen/pelvis CT from 11/25 Consult hematology/oncology Obtain MRI of brain and entire spine to evaluate for possible further metastatic lesions (3) Headache Status: Acute Plan: Mild/moderate severity headache; patient also reporting numbness and tingling of left upper and lower extremity Head CT negative Neuro exam reassuring at this time Will obtain MRI of brain and entire spine to evaluate for possible further metastatic lesions Neuro checks q4h (4) COPD (chronic obstructive pulmonary disease) Status: Chronic Plan: Duonebs / albuterol q4h prn Supplemental O2 as needed to maintain O2 sats > 88% (5) HTN (hypertension) Status: Chronic Plan: Continue home captopril, hctz, lopressor Monitor vitals q4h (6) Nutrition, metabolism, and development symptoms Status: Acute Plan: Fluids: not indicated Electrolytes: WNLs Nutrition: regular diet DVT ppx: b/l SCDs (7) Tobacco use disorder Status: Chronic Plan: Smoking cessation urged. Will add nicotine patch if patient requests. Evelyn De Luna MD Dec 03, 2016 12:18
[2016-12-03 12:48] LABS: AUTOMATED NEUTROPHIL # 6.2 TH/MM3 (1.8-7.7); BASOPHIL # 0.2 TH/MM3 (0-0.2); BASOPHIL % 1.6 % (0.0-2.0); EOSINOPHIL # 0.9 TH/MM3 (0-0.4); EOSINOPHIL % 9.1 % (0.0-4.0); HEMATOCRIT 37.1 % (35.0-46.0); LYMPH % 17.1 % (9.0-44.0); LYMPHOCYTE # 1.6 TH/MM3 (1.0-4.8); MEAN CORPUSCULAR HEMOGLOBIN 28.5 PG (27.0-34.0); MEAN CORPUSCULAR HGB CONC 33.2 % (32.0-36.0); MONO % 7.7 % (0.0-8.0); NEUT % 64.5 % (16.0-70.0); PLATELET COUNT 44 TH/MM3 (150-450); RED BLOOD COUNT 4.31 MIL/MM3 (4.00-5.30); RED CELL DISTRIBUTION WIDTH 14.8 % (11.6-17.2); WHITE BLOOD COUNT 9.6 TH/MM3 (4.0-11.0)
[2016-12-03 12:52] LABS: HEMO FLAGS AUTO DIFF
[2016-12-03 12:58] LABS: BICARBONATE 27.7 MEQ/L (21.0-32.0); POTASSIUM 3.7 MEQ/L (3.5-5.1)
[2016-12-03 13:37] LABS: PLATELET ESTIMATE SMEAR LOW (NORMAL); PLATELET MORPHOLOGY NORMAL (NORMAL); SCAN/DIFF AUTO DIFF CONFIRMED
[2016-12-03] MEDS ORDERED: GADOBENATE DIM PF 529 MG/ML 5 ML VIAL (for RAD MRI) IV ONE (14:02)
--- NOTE | 2016-12-03 15:23 | RADRPT ---
EXAM DATE/TIME: 12/03/2016 13:21 [facility] COMPARISON: CT BRAIN W/O CONTRAST, December 02, 2016, 22:14. INDICATIONS : Cephalgia. CONTRAST: 11 cc Multihance (gadobenate) IV MEDICAL HISTORY : Carcinoma, lung. SURGICAL HISTORY : Tonsillectomy. CARDIAC STENTS ENCOUNTER: Subsequent ACUITY: 2 day PAIN SCORE: 3/10 LOCATION: cranial TECHNIQUE: Multiplanar, multisequence MRI of the brain was performed both prior to and following the administrat ion of paramagnetic contrast. FINDINGS: The examination demonstrates a very small amount of subdural hemorrhage seen along the anterior aspec t of the left frontal cortices and more inferiorly along the posterior parietal and occipital cortex. The post contrast images demonstrate fairly diffuse meningeal enhancement. No focal mass is seen within the brain parenchyma. The ventricular system is normal in size and confi guration. No findings to indicate acute cortical infarct identified. No significant white matter sign al abnormalities are evident. Sagittal T1-weighted images demonstrate normal formation of the corpus callosum and midline structure s. The cerebellar tonsils are in their appropriate location. The post contrast imaging does demonstrate area of abnormal enhancement involving the left side of fr ontal bone. There is cortical destruction of the calvaria in this area on the CT. This would be consi stent with a metastatic lesion to the skull. CONCLUSION: 1. Examination demonstrates very subtle subdural hemorrhage along the left hemisphere. There is menin geal enhancement as well. This is only approximately 1 mm in thickness. 2. There is a destructive lesion evident in the left side of the frontal bone. This has eroded throug h the inner table of the skull. 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 Ty Farmer MD on December 03, 2016 at 15:10 Board Certified Radiologist. This report was verified electronically.
--- NOTE | 2016-12-03 16:21 | RADRPT ---
EXAM DATE/TIME: 12/03/2016 13:53 [facility] COMPARISON: No previous studies available for comparison. INDICATIONS : Metastasis MEDICAL HISTORY : Hypercholesterolemia. Hypertension Myocardial infarction. asthma, deep vein thrombosis SURGICAL HISTORY : back surgery ENCOUNTER: Initial ACUITY: 1 day PAIN SCORE: 6/10 LOCATION: Skeleton FINDINGS: Bone survey was performed of the axial and appendicular skeleton. The upper extremities are unremarkable. The lower extremities are demonstrate no abnormality. The spinal axis and pelvis are unremarkable. The skull demonstrates normal mineralization and the paranasal sinuses are clear. Mild degenerative changes are noted throughout the cervical, thoracic and lumbar spine. Curvilinear c alcification is noted in the expected region of the infrarenal abdominal aorta suggesting abdominal a ortic aneurysm. The visualized heart, lungs and abdominal structures are unremarkable. Bony minerali zation is normal. CONCLUSION: 1. No focal lytic or sclerotic lesions identified within the surveyed bony skeleton. 2. Curvilinear calcification in the expected region of the infrarenal abdominal aorta suggesting abdo cathleen aortic aneurysm. 3. Mild degenerative changes throughout the cervical, thoracic and lumbar spine. Kennedy Vasques MD on December 03, 2016 at 16:13 Board Certified Radiologist. This report was verified electronically.
[2016-12-03] MEDS ORDERED: SODIUM CHLOR 0.9% 250 ML INJ 250 ML IV ONE (19:30)
[2016-12-03] MEDS ORDERED: ACETAMINOPHEN 325 MG TAB PO PRN ×2 (19:30→23:45)
--- NOTE | 2016-12-03 22:34 | EKG ---
Date Performed: 12/02/2016 Time Performed: 22:51:45 PTAGE: 56 years EKG: Sinus rhythm NORMAL ECG PREVIOUS TRACING : 03/16/2008 15.38 DOCTOR: Tomer Stark Interpretating Date/Time 12/03/2016 22:31:51
--- NOTE | 2016-12-03 22:43 | MB ---
cc: NOE PEÑA MD DATE OF CONSULTATION 12/03/16 DATE OF 1960. REFERRING PHYSICIAN Requested by the family medicine residency service. REASON FOR CONSULTATION 1. Severe thrombocytopenia. 2. Intracranial hemorrhage associated with osseous metastatic lesion involving the left frontal bone of the skull. 3. Mass involving the right upper lobe of the lung with involvement of the mediastinum as well; concerning for mediastinal lymphadenopathy versus parenchymal lung mass. 4. Multiple liver masses consistent with metastases. 5. History of deep venous thrombosis involving the left lower extremity. CHIEF COMPLAINT The patient reports noticing progressive bruising over the skin of her arms and abdomen. She also reports a left-sided headache. HISTORY OF PRESENT ILLNESS Ms. Borrego is a 56-year-old female with a 50+ pack-year history of smoking. She reports being diagnosed with a DVT in her left leg in August of 2016. She was put on anticoagulation with Xarelto at the time. She reports tolerating Xarelto reasonably well initially but then began to develop bruising over her body. She presented to the emergency department on 11/25/2016 and was seen and was noted to have a platelet count of 31,000. I am not certain what happened after that visit, but apparently this patient did undergo extensive imaging studies including CT scan of the abdomen and pelvis which revealed extensive masses involving the liver consistent with metastatic disease. She also underwent a chest CT scan during that hospitalization that was without contrast and she was noted to have a right lung mass with nodules as well as mediastinal lymphadenopathy. Apparently, she had been awaiting evaluation in the outpatient setting when she developed worsening bruising and came back into the emergency department. At this time, her platelet count was noted to be 18,000. She underwent imaging studies of the head for workup of headaches and MRI dated 12/04/2016 indicated a very subtle subdural hemorrhage along the left hemisphere. Meningeal enhancement was noted measuring 1 mm. The destructive lesion involving the left side of the frontal bone which was eroding through the inner table of the skull. Findings consistent with metastatic disease to the skull. The oncology service has been asked to see her for further workup and management of a complicated constellation of findings. This woman has metastatic malignancy, likely a lung cancer, with metastatic disease to the skull, liver as well. The DVT was probably provoked by the malignancy and now she has severe thrombocytopenia complicated by an intracranial hemorrhage. Since admission, she has been taken off the Xarelto (I am not certain exactly how long she has been off the Xarelto but certainly since this admission). She has also been transfused one unit of packed red blood cells. PAST MEDICAL HISTORY 1. Tobaccoism as outlined above. 2. Hypertension. 3. Asthma 4. High cholesterol. 5. Chronic kidney failure. 6. Coronary artery disease. 7. Abdominal aortic aneurysm 8. DVT in August of 2016. PAST SURGICAL HISTORY 1. Back surgery many years ago. 2. Tonsillectomy and adenoidectomy when she was a child. GYNECOLOGIC HISTORY 2, para 1. She had one . She has a 27-year-old daughter with developmental delays and Asperger's. SOCIAL HISTORY The patient lives at home with her daughter. She works at a gas station. She is a smoker and has smoked since she was 14 and smoked up to a pack and a half a day. Denies alcohol abuse. FAMILY HISTORY Multiple family members with malignancy. Her mom of metastatic lung cancer. She was a smoker. Father of cancer (primary site not known). Brother had cancer of the "stomach". Maternal uncle with "bone cancer". maternal uncle E2 had hepatocellular carcinoma. Maternal grandmother with colon cancer. Female cousin with cervical cancer. ALLERGIES CODEINE CONTRAST FLEXERIL LIPITOR LORTAB NITRO-DUR. MEDICATIONS Current inpatient 1. Tylenol 650 mg p.o. q.4 h as needed for headache. 2. Albuterol 2.5 mg nebs q.4 h as needed for shortness of breath and wheezing. 3. Albuterol/Ipratropium 1 ampule nebulized every 4 hours. Next. 4. Alprazolam 0.5 mg p.o. b.i.d. p.r.n. for anxiety 5. Capoten 50 mg p.o. b.i.d. 6. Benadryl 25 mg p.o. q.6 h as needed for allergies. 7. Hydrochlorothiazide 25 mg p.o. daily. 8. Metoprolol 25 mg p.o. b.i.d. 9. Naloxone as needed 10. Ondansetron 4 mg IV q.6 h as needed for nausea and vomiting. 11. Pravastatin 80 mg p.o. daily. REVIEW OF SYSTEMS 13-point patient completed review of systems is obtained. The following are the pertinent positives: CONSTITUTIONAL: Fatigue, decreased appetite. Denies fevers or chills. HEENT: Denies headaches, blurry vision, difficulty swallowing or soreness in the throat. RESPIRATORY: Denies difficulty breathing, hemoptysis. She does report having a cough. She denies pleuritic chest pain. CARDIOVASCULAR: Denies angina-like chest pain, PND, orthopnea GI: Denies nausea, vomiting, diarrhea, hematochezia, melena. : No complaints. MUSCULOSKELETAL: Reports headache. No other complaints reported. SKIN: Easy bruising but denies overt bleeding. PHYSICAL EXAMINATION VITAL SIGNS: 96.4 degrees Fahrenheit, heart rate 67 beats a minute, respiratory rate 16, blood pressure 154/89, O2 sats 99% on room air. GENERAL APPEARANCE: Ms. Borrego is a middle-aged female. She is sitting up in bed, appears to be no acute distress, has a pleasant disposition. HEENT: Head atraumatic, normocephalic, conjunctivae are non pale, sclerae are anicteric. She has strabismus of the eyes. Oral exam - no pharyngeal erythema. NECK: No palpable cervical or supraclavicular lymphadenopathy. RESPIRATORY: Good air movement bilaterally without any added breath sounds. CARDIOVASCULAR: Regular rate and rhythm, S1-S2. No obvious murmurs, rubs or gallops. ABDOMEN: Protuberant belly, soft and nontender, nondistended, no palpable organ enlargement. EXTREMITIES: No pretibial edema. No calf tenderness. 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 SKIN: Bruises noted over the upper extremities and lower extremities as well as over the stomach. BREASTS: Performed in the presence of female nurse supervisor engines road: No overt masses noted in either breast, no actual lymphadenopathy. No rashes or skin changes. She does have a small bruise on the undersurface of the left breast. LABORATORY DATA Blood work dated 12/03/2016: Sodium 138, potassium 3.7, chloride 101, bicarb 27.7, BUN 23, creatinine 1.2, EGFR 47, random glucose 113, calcium 8.5, total bilirubin 0.6, AST 28, ALT 22, alkaline phosphatase 130, albumin 3.3, total bilirubin is 6.5. CBC date 12/02/2016: WBC count 12.2, hemoglobin 13.3 gm/dl, hematocrit 33.2%, platelet count 14,000. Absolute neutrophil count 7.9. Coags - INR 1.1, PTT 26.6, PT 12.7. IMAGING STUDIES 11/25/16 - Multiple low-density liver lesions consistent with metastatic disease. Atrophic right kidney containing numerous palpable cysts. CT scan of the chest dated 11/25/2016: Right lung mass and nodules with mediastinal lymphadenopathy and metastatic lesions to the upper abdomen. MRI of the brain dated 12/03/2016: Examination demonstrates very subtle subdural hemorrhage along the left hemisphere. There is meningeal enhancement as well. This measures 1 mm in thickness. Destructive lesion evident in the left side of the frontal lobe. This has eroded through the inner table of the skull. Findings consistent with metastatic disease to the skull. ASSESSMENT Ms. Borrego is a 56-year-old female with a very complicated combination of medical problems. She is a smoker and has had a six-month history of a chronic cough. She was found to have a deep venous thrombosis in August of 2016 for which she was on anticoagulation with Xarelto. She presented with thrombocytopenia and bruising. The Xarelto was discontinued. Imaging studies done about a week ago at this hospital indicate findings consistent with multiple liver masses consistent with metastatic disease to the liver. CT scan of the chest revealed a left upper lobe lung mass associated with extensive mediastinal lymphadenopathy which likely is the primary malignancy. Furthermore, at this hospitalization she was found to have a metastatic deposit involving the left frontal bone of the skull associated with a subdural hemorrhage along the left cerebral hemisphere surface. So far, she has been taken off of the Xarelto, has been given platelet transfusions and has been admitted to the hospital for observation/additional workup. RECOMMENDATIONS 1. Lung mass associated with liver metastases and skull based lesion. She will require image guided biopsy. I would recommend CT-guided biopsy of one of the liver lesions when her platelet count is appropriate and stable. The primary differential diagnosis is primary lung carcinoma given her history of smoking. 2. Intracranial hemorrhage: Hyper transfuse to maintain platelet count over 50,000. Repeat CT scan of the head in 48 hours to rule out progression. 3. Thrombocytopenia: I do not have a good trend of platelets. Prior to the CBC drawn on 11/25/2016, she had blood work done in 2007 which indicated normal platelet count. I am not certain what her platelet count was at the time she was initiated on Xarelto, but I am certain this was evaluated before she was initiated on this anticoagulant. At any rate, differential diagnosis of thrombocytopenia is wide. I have requested at [facility] antibody that is Hepatitis profile. I have also requested additional platelet transfusions. I will review her peripheral smear. If there are findings concerning for ITP, I will empirically start her on prednisone. Peripheral smear reviewed, no evidence of PLT clumps, no giant PLTs noted, no obvious dysplastic or dysmorphic findings noted. 4. US doppler studies of her lower extremities has been ordered. Despite all the medical issues she has ongoing, the patient appears remarkably well and nonacute appearing. I therefore am comfortable monitoring her on the medical floor with close followup. HEMOSTASIS The MD CHRISTINE Crum/ /7:33 PM /10:13 PM VIC
[2016-12-04] VITALS (10 sets, daily range): BP systolic 123–151; BP diastolic 69–89; PULSE 69–93; RESP 16–18; TEMP 96.7–99.2; O2SAT 95–98
--- NOTE | 2016-12-04 00:07 | RADRPT ---
EXAM DATE/TIME: 12/03/2016 22:45 [facility] COMPARISON: No previous studies available for comparison. INDICATIONS : Bilateral leg pain. History of deep vein thrombosis. MEDICAL HISTORY : Myocardial infarction. Hypercholesterolemia. Arthritis. Lung cancer wihth mets to liver. CAD. Hyperli pidemia. HTN. DVT. COPD. Sputum production. Abdominal pain. Asthma. GERD. Anxiety. Anticoagulant ther apy, Xarelto SURGICAL HISTORY : Tonsillectomy.Coronary artery stent. Deviated septum. Cardiac cath. Lumbar bulging disc surgery. ENCOUNTER: Subsequent ACUITY: 1 day PAIN SCORE: 5/10 LOCATION: Bilateral leg. TECHNIQUE: Venous ultrasound of the left and right leg was performed from the inguinal ligament to the proximal calf. Real-time, color Doppler and spectral tracing, compression and augmentation techniques were us ed. FINDINGS: RIGHT LEG: There is normal compressibility of the deep venous system from the inguinal region to the proximal ca lf. No echogenic clot is seen in the lumen of the common femoral, femoral, popliteal, and posterior tibial veins. There is a normal response of the venous system to proximal and distal augmentation an d respiration. LEFT LEG: There is normal compressibility of the deep venous system from the inguinal region to the proximal ca lf. No echogenic clot is seen in the lumen of the common femoral, femoral, popliteal, and posterior tibial veins. There is a normal response of the venous system to proximal and distal augmentation an d respiration. CONCLUSION: Normal examination. Kun Pratt MD on December 04, 2016 at 0:05 Board Certified Radiologist. This report was verified electronically.
[2016-12-04] MEDS: CAPTOPRIL 50 MG TAB PO SCH ×2 (06:09→15:57)
[2016-12-04 07:29] LABS: HEMATOCRIT 34.2 % (35.0-46.0); MEAN CELL VOLUME 85.8 FL (80.0-100.0); MEAN CORPUSCULAR HEMOGLOBIN 29.1 PG (27.0-34.0); PLATELET COUNT 64 TH/MM3 (150-450); RED BLOOD COUNT 3.99 MIL/MM3 (4.00-5.30); RED CELL DISTRIBUTION WIDTH 14.9 % (11.6-17.2); WHITE BLOOD COUNT 10.1 TH/MM3 (4.0-11.0)
[2016-12-04] MEDS: ACETAMINOPHEN 325 MG TAB PO PRN (07:39)
[2016-12-04 07:51] LABS: BICARBONATE 26.2 MEQ/L (21.0-32.0); POTASSIUM 3.8 MEQ/L (3.5-5.1)
[2016-12-04 07:58] LABS: REVIEW FLAG FINAL
[2016-12-04] MEDS: SODIUM CHLORIDE 0.9% FLUSH 10 ML FLUSH IV FLUSH SCH ×2 (09:00→20:31)
--- NOTE | 2016-12-04 09:02 | PD.ONC.PN ---
Subjective Subjective Remarks Afebrile Having some occasional visual disturbances followed by a headache C/o not having a good BM in a few days Objective Data Date Time Temp Pulse Resp B/P Pulse Ox O2 Delivery O2 Flow Rate FiO2 12/04/16 08:39 18 12/04/16 04:00 96.7 75 16 126/78 96 12/04/16 02:15 97.0 79 17 142/89 97 12/04/16 00:39 18 12/04/16 00:16 97.8 69 16 127/69 96 12/04/16 00:01 98.2 79 16 130/85 98 12/04/16 00:00 98.2 79 16 130/85 98 12/03/16 19:00 97.4 84 17 108/60 96 12/03/16 16:00 96.4 67 16 154/89 99 12/03/16 12:00 96.6 81 16 127/75 97 Result Diagram: 12/04/16 0646 12/04/16 0646 Laboratory Results Laboratory Tests Test 12/03/16 12/03/16 12/04/16 12:03 19:24 06:46 White Blood Count 9.6 TH/MM3 10.1 TH/MM3 Red Blood Count 4.31 MIL/MM3 3.99 MIL/MM3 Hemoglobin 12.3 GM/DL 11.6 GM/DL Hematocrit 37.1 % 34.2 % Mean Corpuscular Volume 86.0 FL 85.8 FL Mean Corpuscular Hemoglobin 28.5 PG 29.1 PG Mean Corpuscular Hemoglobin 33.2 % 34.0 % Concent Red Cell Distribution Width 14.8 % 14.9 % Platelet Count 44 TH/MM3 64 TH/MM3 Mean Platelet Volume 9.4 FL 8.8 FL Neutrophils (%) (Auto) 64.5 % Lymphocytes (%) (Auto) 17.1 % Monocytes (%) (Auto) 7.7 % Eosinophils (%) (Auto) 9.1 % Basophils (%) (Auto) 1.6 % Neutrophils # (Auto) 6.2 TH/MM3 Lymphocytes # (Auto) 1.6 TH/MM3 Monocytes # (Auto) 0.7 TH/MM3 Eosinophils # (Auto) 0.9 TH/MM3 Basophils # (Auto) 0.2 TH/MM3 CBC Comment AUTO DIFF Differential Comment AUTO DIFF CONFIRMED Platelet Estimate LOW Platelet Morphology Comment NORMAL Sodium Level 138 MEQ/L 137 MEQ/L Potassium Level 3.7 MEQ/L 3.8 MEQ/L Chloride Level 101 MEQ/L 103 MEQ/L Carbon Dioxide Level 27.7 MEQ/L 26.2 MEQ/L Anion Gap 9 MEQ/L 8 MEQ/L Blood Urea Nitrogen 23 MG/DL 26 MG/DL Creatinine 1.20 MG/DL 1.25 MG/DL Estimat Glomerular Filtration 47 ML/MIN 45 ML/MIN Rate Random Glucose 113 MG/DL 88 MG/DL Calcium Level 8.5 MG/DL 8.8 MG/DL Blood Bank Comment Imaging Studies Last 48 hours Impressions Lower Extremity Ultrasound 12/03/16 0000 Signed Impressions: Service Date/Time: Saturday, December 03, 2016 22:45 - CONCLUSION: Normal examination. Kun Pratt MD Brain MRI 12/03/16 0000 Signed Impressions: Service Date/Time: Saturday, December 03, 2016 13:21 - CONCLUSION: 1. Examination demonstrates very subtle subdural hemorrhage along the left hemisphere. There is meningeal enhancement as well. This is only approximately 1 mm in thickness. 2. There is a destructive lesion evident in the left side of the frontal bone. This has eroded through the inner table of the skull. 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 Ty Farmer MD Bone Osseous Survey 12/03/16 0000 Signed Impressions: Service Date/Time: Saturday, December 03, 2016 13:53 - CONCLUSION: 1. No focal lytic or sclerotic lesions identified within the surveyed bony skeleton. 2. Curvilinear calcification in the expected region of the infrarenal abdominal aorta suggesting abdominal aortic aneurysm. 3. Mild degenerative changes throughout the cervical, thoracic and lumbar spine. Kennedy Vasques MD Administered Medications Medications (Trade) Dose Ordered Sig/Nico Route PRN Reason Start Time Stop Time Status Last Admin Dose Admin Sodium Chloride (NS Flush) 2 ml BID IV FLUSH 12/03/16 00:30 12/03/16 20:41 Captopril (Capoten) 50 mg BIDAC PO 12/03/16 07:00 12/04/16 06:09 Hydrochlorothiazide (Hydrodiuril) 25 mg DAILY PO 12/03/16 09:00 12/03/16 09:40 Metoprolol Tartrate (Lopressor) 25 mg BID PO 12/03/16 09:00 12/03/16 20:41 Pravastatin Sodium (Pravachol) 80 mg DAILY PO 12/03/16 09:00 12/03/16 09:40 Acetaminophen 650 mg 650 mg Q4H PRN PO HEADACHE OR TEMP > 101 F 12/03/16 03:30 12/04/16 07:39 Sodium Chloride (NS 250 ml Inj) 250 ml @ 15 mls/hr ONCE ONCE IV 12/03/16 19:30 12/04/16 12:09 12/03/16 19:30 Objective Remarks GENERAL: Well-appearing older female, sitting up in bed trying to order breakfast. SKIN: Warm and dry. HEAD: Normocephalic. EYES: No injection or drainage. NECK: Supple, trachea midline. CARDIOVASCULAR: Regular rate and rhythm without murmurs. RESPIRATORY: Clear to auscultation. Breathing unlabored. GASTROINTESTINAL: Abdomen mildly protuberant but soft. Non-tender. EXTREMITIES: No cyanosis, or edema. NEUROLOGICAL: No obvious focal deficit. Awake, alert, and oriented x3. Assessment/Plan Assessment 56 y/o female with new diagnosis of lung cancer with mets to liver. She was admitted for thrombocytopenia. She was previously on Xarelto for hx of DVT. Last dose TuesdayNovember 29. Awaiting biopsy when platelets remain greater than 50k. Plan 1. After platelet transfusion last night she is stable today at 63k. 2. Due to subtle subdural hemorrhage along the left hemisphere, we will transfuse to keep her platelets greater than 50k. 3. We will consult interventional radiology to attempt to get biopsy of liver lesion. This will likely be on Tuesday. 4. Monitor CBC closely and transfuse as needed. Attending Statement The exam, history, and the medical decision-making described in the above note were completed with the assistance of the mid-level provider. I reviewed and agree with the findings presented. I attest that I had a [id number] encounter with the patient on the same day, and personally performed and documented my assessment and findings in the medical record. patient doing well and no further bleeding. platelets are increasing without steroids suggesting that the low platelets due to Xarelto. will check platelet count in am as well as fibrinogen level- low in DIC. will plan on liver bx if platelet count okay on Tuesday. Sharon Pritchard Dec 04, 2016 09:02 Toñito Lopez MD Dec 04, 2016 18:37
[2016-12-04] MEDS ORDERED: MAGNESIUM HYDROXIDE SUSP 30 ML CUP PO PRN (09:15)
[2016-12-04] MEDS: PRAVASTATIN SOD 80 MG TAB PO SCH (09:39)
[2016-12-04] MEDS: METOPROLOL TARTRATE 25 MG TAB PO SCH ×2 (09:39→20:30)
[2016-12-04] MEDS: HYDROCHLOROTHIAZIDE 25 MG TAB PO SCH (09:39)
[2016-12-04] MEDS ORDERED: DOCUSATE SODIUM 50 MG/SENNA 8.6 MG TAB PO PRN (10:15)
--- NOTE | 2016-12-04 10:24 | HHI.FPPN ---
Subjective Remarks Patient seen and examined this morning. No acute events overnight with vital signs stable. Patient reports she is continuing to have headaches, but pain is controlled with Tylenol when necessary. She does endorse some visual disturbances that she states have been recurrent with her headaches over the past couple months. She describes decreased central vision without complete loss. She reports these findings as "shiny triangles arranged in a red cliff in the middle of her vision.." Otherwise she has no complaints and denies any fevers, chills, shortness of breath, chest pain, NVD, abdominal pain, or calf tenderness. (Mauricio Shepherd MD R1) Objective Vitals Vital Signs Date Time Temp Pulse Resp B/P Pulse Ox O2 Delivery O2 Flow Rate FiO2 12/04/16 08:39 18 12/04/16 04:00 96.7 75 16 126/78 96 12/04/16 02:15 97.0 79 17 142/89 97 12/04/16 00:39 18 12/04/16 00:16 97.8 69 16 127/69 96 12/04/16 00:01 98.2 79 16 130/85 98 12/04/16 00:00 98.2 79 16 130/85 98 12/03/16 19:00 97.4 84 17 108/60 96 12/03/16 16:00 96.4 67 16 154/89 99 12/03/16 12:00 96.6 81 16 127/75 97 I/O 12/03/16 12/03/16 12/03/16 12/04/16 12/04/16 12/04/16 07:00 15:00 23:00 07:00 15:00 23:00 Intake Total 746 ml 720 ml 480 ml 736 ml Balance 746 ml 720 ml 480 ml 736 ml Intake Oral 480 ml 720 ml 480 ml 480 ml Platelets 266 ml 256 ml # Voids 4 5 4 5 # Bowel Movements 0 1 0 0 (Mauricio Shepherd MD R1) Result Diagram: 12/04/1646 12/04/16 0646 Objective Remarks GENERAL: 52-year-old female lying in bed in no acute distress. SKIN: Warm and dry. Multiple areas of healing ecchymosis secondary to thrombocytopenia. No new areas appreciated. HEENT: Atraumatic, normocephalic with EOMI. MMM. No LAD or JVD. CARDIOVASCULAR: Regular rate and rhythm without murmurs. RESPIRATORY: Bilateral wheezes throughout both lung jefferson. No increased work of breathing. GASTROINTESTINAL: Soft, nontender with positive bowel sounds. No masses appreciated. EXTREMITIES: No cyanosis, or edema. NEUROLOGICAL: No obvious focal deficit. Awake, alert, and oriented x3. (Mauricio Shepherd MD R1) A/P Assessment and Plan Very pleasant 56 year old woman with PMH significant for COPD, left popliteal DVT found in 08/2016 had previously been on Xarelto last taken on 11/29, HI, HTN , HLD, and newly found right lung mass and metastatic lesions found in the liver on chest and abdomen/pelvis CT from 11/25/2016 sent to the ED by her primary care physician following her platelet count found to be at 15,000. Patient will be transfused one unit of platelets and hematology/oncology consulted for further recommendations and evaluation of suspected malignancy with metastases. Discharge Planning Pending further evaluation for her malignancy and stabilization of her platelet count. (Mauricio Shepherd MD R1) Attending Attestation Patient seen and examined. Case reviewed and discussed with the resident team. Agree with plan of care as discussed with me and documented in the resident note. she will have close monitoring of her platelets especially with her upcoming biopsy (Brenda Eduardo MD) Problem List: (1) Thrombocytopenia Status: Acute Plan: Platelets 14,000 on admission Will transfuse 1 unit of leukocyte reduced pheresis platelets Trend CBC Consult hematology/oncology, appreciate recs Plan for liver biopsy by and return to radiology on Tuesday with normalized platelets Transfuse to maintain platelet count over 50,[address] and 48 hours to rule out progression (11/04) Lower extremities ultrasound: Normal examination Hepatitis and HIT workup pending Peripheral smear: No evidence of platelet clumps, no giant platelets, no obvious dysplastic or dysmorphic findings (2) Mass of right lung Status: Acute Plan: Right lung mass with metastatic lesions found in the liver on chest and abdomen/pelvis CT from 11/25 Consult hematology/oncology Please see plan as above Brain MRI: Examination demonstrates very subtle subdural hemorrhage along the left hemisphere. Meningeal enhancement as well. This is only approximately 1 mm in thickness. There is a destructive lesion evident in the left side of the frontal bone. 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 Osseous survey: No focal lytic or sclerotic lesions identified. Curvilinear calcification in the expanded region of the infrarenal abdominal aorta suggesting he abdominal aortic aneurysm. Mild degenerative changes throughout the cervical, thoracic, and lumbar spine. (3) Headache Status: Acute Plan: Mild/moderate severity headache; patient also reporting numbness and tingling of left upper and lower extremity Head CT negative Neuro exam reassuring at this time Neuro checks q4h (4) COPD (chronic obstructive pulmonary disease) Status: Chronic Plan: Duonebs / albuterol q4h prn Supplemental O2 as needed to maintain O2 sats > 88% (5) HTN (hypertension) Status: Chronic Plan: Continue home captopril, hctz, lopressor Monitor vitals q4h (6) Nutrition, metabolism, and development symptoms Status: Acute Plan: Fluids: not indicated Electrolytes: WNLs Nutrition: regular diet DVT ppx: b/l SCDs (7) Tobacco use disorder Status: Chronic Plan: Smoking cessation urged. Will add nicotine patch if patient requests. (Mauricio Shepherd MD R1) Problem Qualifiers (1) Headache: Qualified Code: G44.52 - New daily persistent headache (2) COPD (chronic obstructive pulmonary disease): Qualified Code: J44.9 - Chronic obstructive pulmonary disease, unspecified COPD type (3) HTN (hypertension): Qualified Code: I10 - Essential hypertension Mauricio Shepherd MD R1 Dec 04, 2016 10:24 Brenda Eduardo MD Dec 05, 2016 12:57
[2016-12-04 12:46] LABS: HEPARIN AB OD 0.227 O.D. (0.000-0.300); HEPARIN INDUCED PLATELET AB NEGATIVE (NEGATIVE)
[2016-12-04] MEDS: RESP: ALBUTEROL 2.5 MG/IPRATROPIUM 0.5 MG NEB (PRN) NEB (13:14)
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
[2016-12-05 04:40] VITALS: BP 131/76; PULSE 80; RESP 16; TEMP 97.8; O2SAT 95
[2016-12-05] MEDS: CAPTOPRIL 50 MG TAB PO SCH ×2 (06:14→17:15)
[2016-12-05 06:19] LABS: HEMATOCRIT 36.1 % (35.0-46.0); MEAN CELL VOLUME 85.3 FL (80.0-100.0); MEAN CORPUSCULAR HEMOGLOBIN 28.6 PG (27.0-34.0); MEAN CORPUSCULAR HGB CONC 33.6 % (32.0-36.0); PLATELET COUNT 47 TH/MM3 (150-450); RED BLOOD COUNT 4.23 MIL/MM3 (4.00-5.30); RED CELL DISTRIBUTION WIDTH 14.8 % (11.6-17.2); WHITE BLOOD COUNT 12.7 TH/MM3 (4.0-11.0)
[2016-12-05 06:27] LABS: REVIEW FLAG FINAL
[2016-12-05 06:38] LABS: BICARBONATE 25.3 MEQ/L (21.0-32.0); POTASSIUM 3.6 MEQ/L (3.5-5.1)
[2016-12-05 08:00] VITALS: BP 126/86; PULSE 87; RESP 18; TEMP 97; O2SAT 97
[2016-12-05] MEDS: SODIUM CHLORIDE 0.9% FLUSH 10 ML FLUSH IV FLUSH SCH ×2 (09:00→21:00)
[2016-12-05] MEDS: METOPROLOL TARTRATE 25 MG TAB PO SCH (10:29)
[2016-12-05] MEDS: HYDROCHLOROTHIAZIDE 25 MG TAB PO SCH (10:29)
[2016-12-05] MEDS: PRAVASTATIN SOD 80 MG TAB PO SCH (10:29)
[2016-12-05] MEDS ORDERED: SODIUM CHLOR 0.9% 250 ML INJ 250 ML IV ONE ×2 (10:30→11:30)
[2016-12-05] MEDS ORDERED: ACETAMINOPHEN 325 MG TAB PO ONE (10:30)
--- NOTE | 2016-12-05 11:25 | PD.ONC.PN ---
Subjective Subjective Remarks Afebrile overnight. Pt resting in bed, c/o nausea No bleeding or oozing. Had BM yesterday, no blood in stool. Objective Data Date Time Temp Pulse Resp B/P Pulse Ox O2 Delivery O2 Flow Rate FiO2 12/05/16 08:00 97.0 87 18 126/86 97 12/05/16 04:40 97.8 80 16 131/76 95 12/04/16 23:45 97.8 81 17 123/74 97 12/04/16 20:00 98.1 93 17 141/73 97 12/04/16 16:00 99.2 78 18 151/82 97 12/04/16 12:00 97.2 76 18 143/80 97 12/05/16 12/05/16 12/05/16 07:00 15:00 23:00 Intake Total 360 ml Balance 360 ml Result Diagram: 12/05/16 0600 12/05/16 0600 Laboratory Results Laboratory Tests Test 12/05/16 12/05/16 06:00 10:26 White Blood Count 12.7 TH/MM3 Red Blood Count 4.23 MIL/MM3 Hemoglobin 12.1 GM/DL Hematocrit 36.1 % Mean Corpuscular Volume 85.3 FL Mean Corpuscular Hemoglobin 28.6 PG Mean Corpuscular Hemoglobin 33.6 % Concent Red Cell Distribution Width 14.8 % Platelet Count 47 TH/MM3 Mean Platelet Volume 9.5 FL Blood Smear Pathologist Review Fibrinogen 136 mg/dL Sodium Level 135 MEQ/L Potassium Level 3.6 MEQ/L Chloride Level 101 MEQ/L Carbon Dioxide Level 25.3 MEQ/L Anion Gap 9 MEQ/L Blood Urea Nitrogen 27 MG/DL Creatinine 1.23 MG/DL Estimat Glomerular Filtration 46 ML/MIN Rate Random Glucose 113 MG/DL Calcium Level 9.1 MG/DL Blood Bank Comment Administered Medications Medications (Trade) Dose Ordered Sig/Nico Route PRN Reason Start Time Stop Time Status Last Admin Dose Admin Sodium Chloride (NS Flush) 2 ml BID IV FLUSH 12/03/16 00:30 12/05/16 09:00 Captopril (Capoten) 50 mg BIDAC PO 12/03/16 07:00 12/05/16 06:14 Hydrochlorothiazide (Hydrodiuril) 25 mg DAILY PO 12/03/16 09:00 6/18/17 10:29 Metoprolol Tartrate (Lopressor) 25 mg BID PO 12/03/16 09:00 12/05/16 10:29 Pravastatin Sodium (Pravachol) 80 mg DAILY PO 12/03/16 09:00 12/05/16 10:29 Acetaminophen (Tylenol) 650 mg Q4H PRN PO HEADACHE OR TEMP > 101 F 12/03/16 03:30 12/04/16 07:39 Objective Remarks GENERAL: Older female, resting in bed in no distress. SKIN: Warm and dry. HEAD: Normocephalic. EYES: No injection or drainage. NECK: Supple, trachea midline. CARDIOVASCULAR: Regular rate and rhythm without murmurs. RESPIRATORY: Mild inspiratory wheeze, L upper lobe. Breathing unlabored. GASTROINTESTINAL: Abdomen mildly protuberant but soft. Non-tender. EXTREMITIES: No cyanosis, or edema. NEUROLOGICAL: No obvious focal deficit. Awake, alert, and oriented x3 Assessment/Plan Assessment 56 y/o female with new diagnosis of lung cancer with mets to liver. She was admitted for thrombocytopenia. She was previously on Xarelto for hx of DVT. Last dose TuesdayNovember 29. Awaiting biopsy when platelets remain greater than 50k. Plan 1. Platelets slightly decreased today to 48K, will transfuse 1 unit platelets today. 2. Her fibrinogen is low which points to the likelihood of DIC, related to the widespread disease. 3. Due to subtle subdural hemorrhage along the left hemisphere, we will transfuse to keep her platelets greater than 50k. 3. Attempt liver biopsy on Tuesday. May need to transfuse prior. 4. Monitor CBC closely and transfuse as needed. Attending Statement The exam, history, and the medical decision-making described in the above note were completed with the assistance of the mid-level provider. I reviewed and agree with the findings presented. I attest that I had a [id number] encounter with the patient on the same day, and personally performed and documented my assessment and findings in the medical record. no change in exam. low fibrinogen suggestive of some element of DIC which may explain the falling platelet count in spite of stopping Xarelto and giving platelets. will transfuse 1 unit of plat today and check count in am. may need a second transfusion before liver bx but this can be decided tomorrow. Sharon Pritchard Dec 05, 2016 11:25 Toñito Lopez MD Dec 05, 2016 14:10
[2016-12-05] MEDS ORDERED: ACETAMINOPHEN 325 MG TAB PO PRN (11:30)
--- NOTE | 2016-12-05 11:40 | HHI.FPPN ---
Subjective Remarks Ms Borrego has no new complaints. She has had "sinus headaches" throughout her life but recently has had a visual aura consisting of "metallic triangles" and circles in a "pattern" prior to getting her left sided throbbing headache. She also reports nausea and sleep makes her headaches better. She states that lortab gives her a rash. She had no adverse effect from morphine but stated that when she had an [place] she had no relief from iv morphine with her chest pain and doesn't believe this will be effective. We discussed that she will have her liver biopsy and will probably need some pain medicine afterwards. Can consider some meds for migraine as well with her current description of her headache. Objective Vitals Vital Signs Date Time Temp Pulse Resp B/P Pulse Ox O2 Delivery O2 Flow Rate FiO2 12/05/16 08:00 97.0 87 18 126/86 97 12/05/16 04:40 97.8 80 16 131/76 95 12/04/16 23:45 97.8 81 17 123/74 97 12/04/16 20:00 98.1 93 17 141/73 97 12/04/16 16:00 99.2 78 18 151/82 97 12/04/16 12:00 97.2 76 18 143/80 97 I/O 12/04/16 12/04/16 12/04/16 12/05/16 12/05/16 12/05/16 07:00 15:00 23:00 07:00 15:00 23:00 Intake Total 736 ml 1300 ml 360 ml Balance 736 ml 1300 ml 360 ml Intake Oral 480 ml 1300 ml 360 ml Platelets 256 ml # Voids 5 12 4 # Bowel Movements 0 1 0 Result Diagram: 12/05/16 0600 12/05/16 0600 Objective Remarks GENERAL: 52-year-old female walking in the baker with occasional wincing from headache pain SKIN: Warm and dry. Multiple areas of healing ecchymosis secondary to thrombocytopenia. No new areas appreciated. HEENT: Atraumatic, normocephalic with EOMI. MMM. No LAD or JVD. CARDIOVASCULAR: Regular rate and rhythm without murmurs. RESPIRATORY:Clear lungs today after breathing treatment. No increased work of breathing. GASTROINTESTINAL: Soft, nontender with positive bowel sounds. No masses appreciated. EXTREMITIES: No cyanosis, or edema. Area of painful hematoma on her left leg lateral to the knee. NEUROLOGICAL: No obvious focal deficit. Awake, alert, and oriented x3. Some deviation of her eyes without conjugate gaze with history of strabismus. Urinary Catheter: No A/P Assessment and Plan Very pleasant 56 year old woman with PMH significant for COPD, left popliteal DVT found in 08/2016 had previously been on Xarelto last taken on 11/29, [place], HTN , HLD, and newly found right lung mass and metastatic lesions found in the liver on chest and abdomen/pelvis CT from 11/25/2016 sent to the ED by her primary care physician following her platelet count found to be at 15,000. Patient was transfused one unit of platelets and hematology/oncology consulted for further recommendations and evaluation of suspected malignancy with metastases. Discharge Planning Pending further evaluation for her malignancy and stabilization of her platelet count. Problem List: (1) Thrombocytopenia Status: Acute Plan: Platelets 14,000 on admission transfused 1 unit of leukocyte reduced pheresis platelets initially Trend CBC Consulted hematology/oncology, appreciate recs Plan for liver biopsy by and return to radiology on Tuesday with normalized platelets Transfuse to maintain platelet count over 50,000, will transfuse today Repeat head CT and 48 hours to rule out progression (11/04) Lower extremities ultrasound: Normal examination Hepatitis workup pending Peripheral smear: No evidence of platelet clumps, no giant platelets, no obvious dysplastic or dysmorphic findings will need to watch carefully after biopsy of her liver as these biopsies can bleed even under the best circumstances (2) Mass of right lung Status: Acute Plan: Right lung mass with metastatic lesions found in the liver on chest and abdomen/pelvis CT from 11/25 Consulted hematology/oncology Please see plan as above Brain MRI: Examination demonstrates very subtle subdural hemorrhage along the left hemisphere. Meningeal enhancement as well. This is only approximately 1 mm in thickness. There is a destructive lesion evident in the left side of the frontal bone. 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 This is her cause of headaches but her sxs suggest migraines as well Osseous survey: No focal lytic or sclerotic lesions identified. Curvilinear calcification in the expanded region of the infrarenal abdominal aorta suggesting abdominal aortic aneurysm. Mild degenerative changes throughout the cervical, thoracic, and lumbar spine. (3) Headache Status: Acute Plan: Mild/moderate severity headache; patient also reporting numbness and tingling of left upper and lower extremity Head CT negative for new bleeding Neuro exam reassuring at this time Neuro checks q4h initially (4) COPD (chronic obstructive pulmonary disease) Status: Chronic Plan: Duonebs / albuterol q4h prn Supplemental O2 as needed to maintain O2 sats > 88% (5) HTN (hypertension) Status: Chronic Plan: Continue home captopril, hctz, lopressor Monitor vitals q4h stable (6) Nutrition, metabolism, and development symptoms Status: Acute Plan: Fluids: not indicated Electrolytes: WNLs Nutrition: regular diet DVT ppx: b/l SCDs (7) Tobacco use disorder Status: Chronic Plan: Smoking cessation urged. Will add nicotine patch if patient requests. Problem Qualifiers (1) Headache: Qualified Code: G44.52 - New daily persistent headache (2) COPD (chronic obstructive pulmonary disease): Qualified Code: J44.9 - Chronic obstructive pulmonary disease, unspecified COPD type (3) HTN (hypertension): Qualified Code: I10 - Essential hypertension Brenda Eduardo MD Dec 05, 2016 11:40
[2016-12-05 12:00] VITALS: BP 117/74; PULSE 93; RESP 18; TEMP 100.1; O2SAT 98
[2016-12-05 16:00] VITALS: BP 127/88; PULSE 95; RESP 18; TEMP 99.8; O2SAT 95
[2016-12-05] MEDS: RESP: ALBUTEROL 2.5 MG/IPRATROPIUM 0.5 MG NEB (PRN) NEB (20:22)
[2016-12-05 20:25] VITALS: BP 105/75; PULSE 99; RESP 18; TEMP 99.6; O2SAT 96
[2016-12-06] VITALS (17 sets, daily range): BP systolic 94–123; BP diastolic 59–87; PULSE 68–95; RESP 14–18; TEMP 95.8–98.8; O2SAT 91–99
[2016-12-06] MEDS: METOPROLOL TARTRATE 25 MG TAB PO SCH ×3 (01:12→20:25)
[2016-12-06] MEDS: CAPTOPRIL 50 MG TAB PO SCH ×2 (06:21→17:39)
[2016-12-06 06:22] LABS: HEMATOCRIT 34.2 % (35.0-46.0); MEAN CELL VOLUME 85.6 FL (80.0-100.0); MEAN CORPUSCULAR HEMOGLOBIN 28.1 PG (27.0-34.0); MEAN CORPUSCULAR HGB CONC 32.8 % (32.0-36.0); PLATELET COUNT 64 TH/MM3 (150-450); RED CELL DISTRIBUTION WIDTH 14.8 % (11.6-17.2); WHITE BLOOD COUNT 12.2 TH/MM3 (4.0-11.0)
[2016-12-06 06:26] LABS: APTT (PATIENT) 30.8 SEC (24.3-30.1); INTERNATIONAL NORMALIZED RATIO 1.2 RATIO
[2016-12-06 06:43] LABS: BICARBONATE 25.7 MEQ/L (21.0-32.0); POTASSIUM 3.6 MEQ/L (3.5-5.1)
[2016-12-06 06:51] LABS: REVIEW FLAG FINAL
[2016-12-06] MEDS ORDERED: diphenhydrAMINE HCL 25 MG CAP PO PRN (07:30)
[2016-12-06] MEDS ORDERED: SODIUM CHLOR 0.9% 250 ML INJ 250 ML IV ONE (07:30)
[2016-12-06] MEDS ORDERED: ACETAMINOPHEN 325 MG TAB PO PRN (07:30)
--- NOTE | 2016-12-06 09:00 | PD.ONC.PN ---
Subjective Subjective Remarks Patient seen and examined, her major complaint is that of left-sided headache. She tells me she also feels a caffeine withdrawal because she is nothing by mouth this morning. Status post platelet transfusion last night. Also reports back pain; she thinks this may be from her laying in bed all weekend. She denies difficulty breathing, fevers or chills, overt bleeding other than bruising. Objective Data Date Time Temp Pulse Resp B/P Pulse Ox O2 Delivery O2 Flow Rate FiO2 12/06/16 08:00 98.8 78 16 107/70 95 12/06/16 04:09 97.3 72 17 109/59 96 12/06/16 00:30 98.7 93 18 117/66 96 12/05/16 20:25 99.6 99 18 105/75 96 12/05/16 16:00 99.8 95 18 127/88 95 12/05/16 12:00 100.1 93 18 117/74 98 Result Diagram: 12/06/16 0600 12/06/16 0600 Laboratory Results Laboratory Tests Test 12/05/16 12/06/16 10:26 06:00 Blood Bank Comment White Blood Count 12.2 TH/MM3 Red Blood Count 4.00 MIL/MM3 Hemoglobin 11.2 GM/DL Hematocrit 34.2 % Mean Corpuscular Volume 85.6 FL Mean Corpuscular Hemoglobin 28.1 PG Mean Corpuscular Hemoglobin 32.8 % Concent Red Cell Distribution Width 14.8 % Platelet Count 64 TH/MM3 Mean Platelet Volume 8.1 FL Prothrombin Time 13.0 SEC Prothromb Time International 1.2 RATIO Ratio Activated Partial 30.8 SEC Thromboplast Time Sodium Level 132 MEQ/L Potassium Level 3.6 MEQ/L Chloride Level 98 MEQ/L Carbon Dioxide Level 25.7 MEQ/L Anion Gap 8 MEQ/L Blood Urea Nitrogen 26 MG/DL Creatinine 1.21 MG/DL Estimat Glomerular Filtration 46 ML/MIN Rate Random Glucose 102 MG/DL Calcium Level 9.1 MG/DL Administered Medications Medications (Trade) Dose Ordered Sig/Nico Route PRN Reason Start Time Stop Time Status Last Admin Dose Admin Sodium Chloride (NS Flush) 2 ml BID IV FLUSH 12/03/16 00:30 12/05/16 21:00 Captopril (Capoten) 50 mg BIDAC PO 12/03/16 07:00 12/05/16 17:15 Hydrochlorothiazide (Hydrodiuril) 25 mg DAILY PO 12/03/16 09:00 12/05/16 10:29 Metoprolol Tartrate (Lopressor) 25 mg BID PO 12/03/16 09:00 12/06/16 01:12 Pravastatin Sodium (Pravachol) 80 mg DAILY PO 12/03/16 09:00 12/05/16 10:29 Acetaminophen (Tylenol) 650 mg Q4H PRN PO HEADACHE OR TEMP > 101 F 12/03/16 03:30 12/04/16 07:39 Objective Remarks GENERAL APPEARANCE: Ms. Borrego is a middle-aged female. She is sitting up in bed, appears to be no acute distress, has a pleasant disposition. HEENT: Head atraumatic, normocephalic, conjunctivae are non pale, sclerae are anicteric. She has strabismus of the eyes. Oral exam - no pharyngeal erythema. NECK: No palpable cervical or supraclavicular lymphadenopathy. RESPIRATORY: Good air movement bilaterally without any added breath sounds. CARDIOVASCULAR: Regular rate and rhythm, S1-S2. No obvious murmurs, rubs or gallops. ABDOMEN: Protuberant belly, soft and nontender, nondistended, no palpable organ enlargement. EXTREMITIES: No pretibial edema. No calf tenderness. 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 SKIN: Bruises noted over the upper extremities and lower extremities as well as over the stomach. BREASTS: Performed in the presence of female nurse solid center winder: No overt masses noted in either breast, no actual lymphadenopathy. No rashes or skin changes. She does have a small bruise on the undersurface of the left breast. 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 Also with thrombocytopenia; likely secondary to DIC related to metastatic malignancy. Additional findings on brain imaging concerning for subdural hematoma with a skull-based metastasis with possible associated leptomeningeal involvement with malignancy. She has been evaluated by radiation oncology and the tissue diagnosis is awaited. She is scheduled to undergo CT-guided biopsy of one of the lesions involving the liver later today. I did discuss the case with interventional radiology, we discussed the patient' s low platelet count. Interventional radiology will use extra precautions with thrombin injection in the needle track to mitigate the risk of bleeding following the procedure. Plan 1. Thrombocytopenia: Platelet count 64,000 today after receiving 1 unit platelets last night. Likely cause of thrombocytopenia is malignancy related DIC. 2. 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 3. Due to subtle subdural hemorrhage along the left hemisphere, we will transfuse to keep her platelets greater than 50k. 3. Suspected metastatic lung carcinoma: Image guided biopsy of one of the liver masses later today. 4. Monitor CBC closely and transfuse as needed. 5. Ultrasound Dopplers of the lower extremity is reviewed; no evidence of DVT at present. Pablo Huddleston MD Dec 06, 2016 09:00
[2016-12-06] MEDS: SODIUM CHLORIDE 0.9% FLUSH 10 ML FLUSH IV FLUSH SCH ×2 (09:58→20:25)
[2016-12-06] MEDS: HYDROCHLOROTHIAZIDE 25 MG TAB PO SCH (09:58)
[2016-12-06] MEDS: PRAVASTATIN SOD 80 MG TAB PO SCH (10:00)
--- NOTE | 2016-12-06 10:15 | HHI.FPPN ---
Subjective Remarks Patient seen and examined this morning. No acute events overnight with vital signs stable. She has been seen by hematology this morning and reports she will be receiving blood products this morning. She also states that she is scheduled for her liver biopsy and has had nothing by mouth since midnight. She has no complaints and denies any fevers, chills, shortness of breath, chest pain, NVD, abdominal pain, or calf tenderness. (Mauricio Shepherd MD R1) Objective Vitals Vital Signs Date Time Temp Pulse Resp B/P Pulse Ox O2 Delivery O2 Flow Rate FiO2 12/06/16 08:00 98.8 78 16 107/70 95 12/06/16 04:09 97.3 72 17 109/59 96 12/06/16 00:30 98.7 93 18 117/66 96 12/05/16 20:25 99.6 99 18 105/75 96 12/05/16 16:00 99.8 95 18 127/88 95 12/05/16 12:00 100.1 93 18 117/74 98 I/O 12/05/16 12/05/16 12/05/16 12/06/16 12/06/16 12/06/16 07:00 15:00 23:00 07:00 15:00 23:00 Intake Total 360 ml 840 ml Balance 360 ml 840 ml Intake Oral 360 ml 840 ml # Voids 4 6 3 # Bowel Movements 0 1 0 (Mauricio Shepherd MD R1) Result Diagram: 12/06/16 0600 12/06/16 0600 Objective Remarks GENERAL: 52-year-old female walking in the baker with occasional wincing from headache pain SKIN: Warm and dry. Multiple areas of healing ecchymosis secondary to thrombocytopenia. No new areas appreciated. HEENT: Atraumatic, normocephalic with EOMI. Strabismus. MMM. No LAD or JVD. CARDIOVASCULAR: Regular rate and rhythm without murmurs. RESPIRATORY:Clear lungs today after breathing treatment. No increased work of breathing. GASTROINTESTINAL: Soft, nontender with positive bowel sounds. No masses appreciated. EXTREMITIES: No cyanosis, or edema. Area of painful hematoma on her left leg lateral to the knee. NEUROLOGICAL: No obvious focal deficit. Awake, alert, and oriented x3. Some deviation of her eyes without conjugate gaze with history of strabismus. (Mauricio Shepherd MD R1) A/P Assessment and Plan Very pleasant 56 year old woman with PMH significant for COPD, left popliteal DVT found in 08/2016 had previously been on Xarelto last taken on 11/29, [place], HTN , HLD, and newly found right lung mass and metastatic lesions found in the liver on chest and abdomen/pelvis CT from 11/25/2016 sent to the ED by her primary care physician following her platelet count found to be at 15,000. Patient was transfused one unit of platelets and hematology/oncology consulted for further recommendations and evaluation of suspected malignancy with metastases. Discharge Planning Pending further evaluation for her malignancy and stabilization of her platelet count. (Mauricio Shepherd MD R1) Attending Attestation Patient seen and examined. Case reviewed and discussed with the resident team. Agree with plan of care as discussed with me and documented in the resident note. seen on way to biopsy and later when she wanted her diet changed so she could eat carrot cake. tolerated biopsy well (Brenda Eduardo MD) Problem List: (1) Thrombocytopenia Status: Acute Plan: Platelets 14,000 on admission Transfused 2 units of pheresis platelets since admission Trend CBC Consulted hematology/oncology, appreciate recs Plan for liver biopsy by and return to radiology on Tuesday with normalized platelets Transfuse to maintain platelet count over 50,000, will transfuse today Repeat head CT and 48 hours to rule out progression (11/04) Lower extremities ultrasound: Normal examination Hepatitis workup pending Peripheral smear: No evidence of platelet clumps, no giant platelets, no obvious dysplastic or dysmorphic findings Fibrinogen 136, 1 unit cryoprecipitate ordered 12/06 (2) Mass of right lung Status: Acute Plan: Right lung mass with metastatic lesions found in the liver on chest and abdomen/pelvis CT from 11/25 Consulted hematology/oncology Please see plan as above Brain MRI: Examination demonstrates very subtle subdural hemorrhage along the left hemisphere. Meningeal enhancement as well. This is only approximately 1 mm in thickness. There is a destructive lesion evident in the left side of the frontal bone. 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 This is her cause of headaches but her sxs suggest migraines as well Osseous survey: No focal lytic or sclerotic lesions identified. Curvilinear calcification in the expanded region of the infrarenal abdominal aorta suggesting abdominal aortic aneurysm. Mild degenerative changes throughout the cervical, thoracic, and lumbar spine. (3) Headache Status: Acute Plan: Mild/moderate severity headache; patient also reporting numbness and tingling of left upper and lower extremity Head CT negative for new bleeding Neuro exam reassuring at this time Neuro checks q4h initially (4) COPD (chronic obstructive pulmonary disease) Status: Chronic Plan: Duonebs / albuterol q4h prn Supplemental O2 as needed to maintain O2 sats > 88% (5) HTN (hypertension) Status: Chronic Plan: Continue home captopril, hctz, lopressor Monitor vitals q4h stable (6) Nutrition, metabolism, and development symptoms Status: Acute Plan: Fluids: not indicated Electrolytes: WNLs Nutrition: regular diet DVT ppx: b/l SCDs (7) Tobacco use disorder Status: Chronic Plan: Smoking cessation urged. Will add nicotine patch if patient requests. (Mauricio Shepherd MD R1) Problem Qualifiers (1) Headache: Qualified Code: G44.52 - New daily persistent headache (2) COPD (chronic obstructive pulmonary disease): Qualified Code: J44.9 - Chronic obstructive pulmonary disease, unspecified COPD type (3) HTN (hypertension): Qualified Code: I10 - Essential hypertension Mauricio Shepherd MD R1 Dec 06, 2016 10:15 Brenda Eduardo MD Dec 07, 2016 14:42
[2016-12-06] MEDS ORDERED: LIDOCAINE HCL 1% 20 ML VIAL ONE (14:41)
[2016-12-06] MEDS ORDERED: fentaNYL CITRATE 250 MCG/5 ML AMP ONE (15:10)
[2016-12-06] MEDS ORDERED: MIDAZOLAM HCL 5 MG/5 ML VIAL ONE (15:10)
--- NOTE | 2016-12-06 16:48 | RADRPT ---
EXAM DATE/TIME: 12/06/2016 15:33 [facility] COMPARISON: No previous studies available for comparison. INDICATIONS : Mass. SEDATION TIME: 20 minutes BIOPSY SITE: Liver MEDICATION(S): 1.) 2 mg midazolam (Versed) IV DEVICE(S): 1.) 18 gauge [place] blunt needle 2.) 20 gauge Temno core biopsy needle MEDICAL HISTORY : Carcinoma, lung. Myocardial infarction. Gastroesophageal reflux disease. SURGICAL HISTORY : cardiac catheterization, lumbar disc surgery ENCOUNTER: Initial ACUITY: 1 day PAIN SCORE: 0/10 LOCATION: Bilateral abdomen A total of three core specimen(s) were obtained and sent to the laboratory for pathologic evaluation. PROCEDURE: 1. CT guided liver biopsy. 2. Conscious sedation with continuous EKG and oximetry monitoring. 3. EKG and oximetry remained stable throughout the procedure. Prior to the procedure informed consent was obtained. Any appropriate prior imaging studies were rev iewed. Using automated exposure control and adjustment of the mA and/or kV according to patient size, radiat ion dose was kept as low as reasonably achievable to obtain optimal diagnostic quality images. The site was prepped in a sterile fashion. Full sterile technique was used, including cap, mask, clare rile gloves and gown and a large sterile sheet. Hand hygiene and 2% chlorhexidine and/or betadine/al cohol prep was utilized per protocol for cutaneous antisepsis. The skin and subcutaneous tissues wer e infiltrated with local anesthetic solution. Under CT guidance an 18 gauge blunt needle was placed down to the mass in the left lobe of the liver. 3 cores were obtained. Adequate hemostasis was obtained with compression at the puncture site. Follow-up CT scan reveals no hemorrhage. The patient tolerated the procedure well and there were no complications. The patient was returned to the Radiology Outpatient Unit in stable condition. CONCLUSION: Uncomplicated CT guided biopsy of presumed metastatic disease in the liver. Oskar Farmer MD FACR on December 06, 2016 at 16:45 Board Certified Radiologist. This report was verified electronically.
[2016-12-06] MEDS ORDERED: MORPHINE SULFATE 8 MG/ML INJ IV PUSH PRN (18:00)
[2016-12-06] MEDS: ACETAMINOPHEN 325 MG TAB PO PRN (20:25)
[2016-12-07] VITALS: BP 98/45; PULSE 82; RESP 16; TEMP 95.7; O2SAT 97
[2016-12-07 04:00] VITALS: BP 102/59; PULSE 71; RESP 16; TEMP 96.6; O2SAT 96
[2016-12-07] MEDS: ACETAMINOPHEN 325 MG TAB PO PRN ×3 (05:16→15:59)
[2016-12-07] MEDS: CAPTOPRIL 50 MG TAB PO SCH ×2 (06:41→16:00)
[2016-12-07 07:15] LABS: HEMATOCRIT 33.9 % (35.0-46.0); MEAN CELL VOLUME 85.1 FL (80.0-100.0); MEAN CORPUSCULAR HEMOGLOBIN 28.9 PG (27.0-34.0); MEAN CORPUSCULAR HGB CONC 33.9 % (32.0-36.0); PLATELET COUNT 58 TH/MM3 (150-450); RED BLOOD COUNT 3.98 MIL/MM3 (4.00-5.30); RED CELL DISTRIBUTION WIDTH 14.7 % (11.6-17.2); WHITE BLOOD COUNT 11.8 TH/MM3 (4.0-11.0)
[2016-12-07 07:21] LABS: INTERNATIONAL NORMALIZED RATIO 1.1 RATIO; REVIEW FLAG FINAL
--- NOTE | 2016-12-07 07:26 | PD.ONC.PN ---
Subjective Subjective Remarks Patient was seen and examined, she underwent an uncomplicated biopsy of one of the liver masses yesterday. Tells me she does have some right upper quadrant abdominal pain, also also reporting left shoulder/scapular pain as well. Her head continues to hurt along the left parietotemporal area. She denies fevers or chills. She is anxious about establishing outpatient follow-up and the logistics of this. Objective Data Date Time Temp Pulse Resp B/P Pulse Ox O2 Delivery O2 Flow Rate FiO2 12/07/16 04:00 96.6 71 16 102/59 96 12/07/16 00:00 95.7 82 16 98/45 97 12/06/16 20:00 95.8 81 17 99/64 97 12/06/16 19:27 Room Air 12/06/16 19:00 97.6 95 14 116/77 97 12/06/16 18:30 98.5 84 18 120/80 96 12/06/16 18:00 98.7 85 18 123/73 95 12/06/16 17:35 98.7 83 18 117/87 96 12/06/16 17:30 96.9 95 16 111/72 98 12/06/16 16:55 85 16 118/79 95 12/06/16 16:25 80 16 121/79 95 12/06/16 16:10 97.9 75 18 94/60 91 12/06/16 14:42 97.4 86 18 108/71 99 12/06/16 13:13 97.2 68 18 109/69 95 12/06/16 12:05 97.7 74 18 106/66 95 12/06/16 11:50 98.1 73 16 99/69 95 12/06/16 11:30 98.1 73 16 99/69 95 12/06/16 08:00 98.8 78 16 107/70 95 12/07/16 12/07/16 12/07/16 07:00 15:00 23:00 Intake Total 480 ml Output Total 0 ml Balance 480 ml Result Diagram: 12/06/16 0600 12/06/16 0600 Laboratory Results Laboratory Tests Test 12/06/16 07:27 Blood Bank Comment Administered Medications Medications (Trade) Dose Ordered Sig/Nico Route PRN Reason Start Time Stop Time Status Last Admin Dose Admin Sodium Chloride (NS Flush) 2 ml BID IV FLUSH 6/16/17 00:30 12/06/16 20:25 Captopril (Capoten) 50 mg BIDAC PO 12/03/16 07:00 12/05/16 17:15 Hydrochlorothiazide (Hydrodiuril) 25 mg DAILY PO 12/03/16 09:00 12/05/16 10:29 Metoprolol Tartrate (Lopressor) 25 mg BID PO 12/03/16 09:00 12/06/16 20:25 Pravastatin Sodium (Pravachol) 80 mg DAILY PO 12/03/16 09:00 12/06/16 10:00 Acetaminophen (Tylenol) 650 mg Q4H PRN PO HEADACHE OR TEMP > 101 F 12/03/16 03:30 12/07/16 05:16 Objective Remarks GENERAL APPEARANCE: Ms. Borrego is a middle-aged female. She is sitting up in bed, appears to be no acute distress, has a pleasant disposition. HEENT: Head atraumatic, normocephalic, conjunctivae are non pale, sclerae are anicteric. She has strabismus of the eyes. Oral exam - no pharyngeal erythema. NECK: No palpable cervical or supraclavicular lymphadenopathy. RESPIRATORY: Good air movement bilaterally without any added breath sounds. CARDIOVASCULAR: Regular rate and rhythm, S1-S2. No obvious murmurs, rubs or gallops. ABDOMEN: Protuberant belly, soft and nontender, nondistended, no palpable organ enlargement. EXTREMITIES: No pretibial edema. No calf tenderness. 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 SKIN: Bruises noted over the upper extremities and lower extremities as well as over the stomach. BREASTS: Performed in the presence of female nurse r d internship: No overt masses noted in either breast, no actual lymphadenopathy. No rashes or skin changes. She does have a small bruise on the undersurface of the left breast. 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 Also with thrombocytopenia; likely secondary to DIC related to metastatic malignancy. Additional findings on brain imaging concerning for subdural hematoma with a skull-based metastasis with possible associated leptomeningeal involvement with malignancy. She has been evaluated by radiation oncology and the tissue diagnosis is awaited. She is scheduled to undergo CT-guided biopsy of one of the lesions involving the liver later today. I did discuss the case with interventional radiology, we discussed the patient' s low platelet count. Interventional radiology will use extra precautions with thrombin injection in the needle track to mitigate the risk of bleeding following the procedure. Plan 1. Thrombocytopenia: Platelet count 54,000 today, hemoglobin hematocrit are stable following liver biopsy. Her platelet counts will continue to decline without transfusions. Platelet count will require close monitoring is an outpatient. 2. 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 3. Due to subtle subdural hemorrhage along the left hemisphere, we will transfuse to keep her platelets greater than 50k. 4. Suspected metastatic lung carcinoma: Biopsy performed yesterday, with pathology results. Systemic therapy to start as an outpatient. 5. Monitor CBC closely and transfuse as needed. 6. Ultrasound Dopplers of the lower extremity is reviewed; no evidence of DVT at present. 7. 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 She has been seen by radiation oncology and we will discuss the role of targeted radiation versus palliative whole brain radiation given the possibility of leptomeningeal spread of malignancy. I have sent in the patient's stay she to my new patient referral office for outpatient follow-up later this week for repeat blood work and review her pathology reports, in case she is discharged home. Pablo Huddleston MD Dec 07, 2016 07:26
[2016-12-07 07:41] LABS: BICARBONATE 22.9 MEQ/L (21.0-32.0); POTASSIUM 4.1 MEQ/L (3.5-5.1)
[2016-12-07 08:00] VITALS: BP 138/88; PULSE 78; RESP 19; TEMP 98; O2SAT 97
--- NOTE | 2016-12-07 09:33 | HHI.FPPN ---
Subjective Remarks Patient seen and examined this morning by the medical team. No acute events overnight with vital signs stable. Patient reports her liver biopsy will well without complications. She endorses no new bruising or abdominal pain since her procedure. She states that she spoke with Dr. Huddleston earlier this morning and has discussed follow-up with him as an outpatient for later this week. Her only concern is her difficulty quitting smoking. We discussed cessation techniques and offered a prescription for the nicotine patch upon discharge. Currently she has no complaints and denies any fevers, chills, shortness of breath, chest pain , NVD, abdominal pain, or calf tenderness. (Mauricio Shepherd MD R1) Objective Vitals Vital Signs Date Time Temp Pulse Resp B/P Pulse Ox O2 Delivery O2 Flow Rate FiO2 12/07/16 08:00 98.0 78 19 138/88 97 12/07/16 04:00 96.6 71 16 102/59 96 12/07/16 00:00 95.7 82 16 98/45 97 12/06/16 20:00 95.8 81 17 99/64 97 12/06/16 19:27 Room Air 12/06/16 19:00 97.6 95 14 116/77 97 12/06/16 18:30 98.5 84 18 120/80 96 12/06/16 18:00 98.7 85 18 123/73 95 12/06/16 17:35 98.7 83 18 117/87 96 12/06/16 17:30 96.9 95 16 111/72 98 12/06/16 16:55 85 16 118/79 95 12/06/16 16:25 80 16 121/79 95 12/06/16 16:10 97.9 75 18 94/60 91 12/06/16 14:42 97.4 86 18 108/71 99 12/06/16 13:13 97.2 68 18 109/69 95 12/06/16 12:05 97.7 74 18 106/66 95 12/06/16 11:50 98.1 73 16 99/69 95 12/06/16 11:30 98.1 73 16 99/69 95 I/O 12/06/16 12/06/16 12/06/16 12/07/16 12/07/16 12/07/16 07:00 15:00 23:00 07:00 15:00 23:00 Intake Total 600 ml 240 ml 480 ml Output Total 0 ml Balance 600 ml 240 ml 480 ml Intake Oral 240 ml 480 ml IV Total 250 ml Cryoprecipitate 350 ml Output Stool Total 0 ml # Voids 3 2 2 # Bowel Movements 0 0 0 (Mauricio Shepherd MD R1) Result Diagram: 12/07/1637 12/07/16636 Objective Remarks GENERAL: 52-year-old female lying in bed in no acute distress SKIN: Warm and dry. Multiple areas of healing ecchymosis secondary to thrombocytopenia. No new prominent areas appreciated. HEENT: Atraumatic, normocephalic with EOMI. Strabismus. MMM. No LAD or JVD. CARDIOVASCULAR: Regular rate and rhythm without murmurs. RESPIRATORY:Clear lungs today after breathing treatment. No increased work of breathing. GASTROINTESTINAL: Soft, nontender with positive bowel sounds. No masses appreciated. Small bandage in the left upper quadrant from liver biopsy. EXTREMITIES: No cyanosis, or edema. Area of painful hematoma on her left leg lateral to the knee. NEUROLOGICAL: No obvious focal deficit. Awake, alert, and oriented x3. Some deviation of her eyes without conjugate gaze with history of strabismus. (Mauricio Shepherd MD R1) A/P Assessment and Plan Very pleasant 56 year old woman with PMH significant for COPD, left popliteal DVT found in 08/2016 had previously been on Xarelto last taken on 11/29, [place], HTN , HLD, and newly found right lung mass and metastatic lesions found in the liver on chest and abdomen/pelvis CT from 11/25/2016 sent to the ED by her primary care physician following her platelet count found to be at 15,000. Patient was transfused one unit of platelets and hematology/oncology consulted for further recommendations and evaluation of suspected malignancy with metastases. Discharge Planning Patient be discharged home today with close outpatient follow-up with hematology. (Mauricio Shepherd MD R1) Attending Attestation Patient seen and examined. Case reviewed and discussed with the resident team. Agree with plan of care as discussed with me and documented in the resident note. agree with D/C as long as she will have close follow up with Hematology. advised to seek help if she develops new or worsening problems as well as new significant bruising (Brenda Eduardo MD) Problem List: (1) Thrombocytopenia Status: Acute Plan: Platelets 14,000 on admission Transfused 2 units of pheresis platelets since admission Trend CBC Consulted hematology/oncology, appreciate recs Liver biopsy on 12/06: Pending Transfuse to maintain platelet count over 50,000, will transfuse today Repeat head CT and 48 hours to rule out progression (11/04) Lower extremities ultrasound: Normal examination Hepatitis workup pending Peripheral smear: No evidence of platelet clumps, no giant platelets, no obvious dysplastic or dysmorphic findings Fibrinogen 136, 1 unit cryoprecipitate ordered 12/06 Patient to be discharged home with close follow-up with hematology per (2) Mass of right lung Status: Acute Plan: Right lung mass with metastatic lesions found in the liver on chest and abdomen/pelvis CT from 11/25 Consulted hematology/oncology Please see plan as above Brain MRI: Examination demonstrates very subtle subdural hemorrhage along the left hemisphere. Meningeal enhancement as well. This is only approximately 1 mm in thickness. There is a destructive lesion evident in the left side of the frontal bone. 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 This is her cause of headaches but her sxs suggest migraines as well Osseous survey: No focal lytic or sclerotic lesions identified. Curvilinear calcification in the expanded region of the infrarenal abdominal aorta suggesting abdominal aortic aneurysm. Mild degenerative changes throughout the cervical, thoracic, and lumbar spine. (3) Headache Status: Acute Plan: Mild/moderate severity headache; patient also reporting numbness and tingling of left upper and lower extremity Head CT negative for new bleeding Neuro exam reassuring at this time Neuro checks q4h initially (4) COPD (chronic obstructive pulmonary disease) Status: Chronic Plan: Duonebs / albuterol q4h prn Supplemental O2 as needed to maintain O2 sats > 88% (5) HTN (hypertension) Status: Chronic Plan: Continue home captopril, hctz, lopressor Monitor vitals q4h stable (6) Nutrition, metabolism, and development symptoms Status: Acute Plan: Fluids: not indicated Electrolytes: WNLs Nutrition: regular diet DVT ppx: b/l SCDs (7) Tobacco use disorder Status: Chronic Plan: Smoking cessation urged. Will add nicotine patch if patient requests. Nicotine patch prescription given at discharge. (Mauricio Shepherd MD R1) Problem Qualifiers (1) Headache: Qualified Code: G44.52 - New daily persistent headache (2) COPD (chronic obstructive pulmonary disease): Qualified Code: J44.9 - Chronic obstructive pulmonary disease, unspecified COPD type (3) HTN (hypertension): Qualified Code: I10 - Essential hypertension Mauricio Shepherd MD R1 Dec 07, 2016 09:33 Brenda Eduardo MD Dec 07, 2016 14:44
[2016-12-07] MEDS: METOPROLOL TARTRATE 25 MG TAB PO SCH ×2 (09:42→21:26)
[2016-12-07] MEDS: HYDROCHLOROTHIAZIDE 25 MG TAB PO SCH (09:42)
[2016-12-07] MEDS: PRAVASTATIN SOD 80 MG TAB PO SCH (09:42)
[2016-12-07] MEDS: SODIUM CHLORIDE 0.9% FLUSH 10 ML FLUSH IV FLUSH SCH ×2 (09:43→20:14)
[2016-12-07 12:00] VITALS: BP 104/67; PULSE 86; RESP 18; TEMP 97.8; O2SAT 97
--- NOTE | 2016-12-07 12:26 | HHI.DCPOC ---
Discharge Care Plan Diagnosis: (1) Thrombocytopenia (2) Metastatic cancer Goals to Promote Your Health * To prevent worsening of your condition and complications * To maintain your health at the optimal level Directions to Meet Your Goals Take your medications as prescribed Follow your dietary instruction Follow activity as directed Keep your appointments as scheduled Take your immunizations and boosters as scheduled If your symptoms worsen call your PCP, if no PCP go to Urgent Care Center or Emergency Room Smoking is Dangerous to Your Health. Avoid second hand smoke Call the 24-hour hour crisis hotline for domestic abuse at Mauricio Shepherd MD R1 Dec 07, 2016 12:26
[2016-12-07] MEDS ORDERED: GADODIAMIDE PF 287 MG/ML 5 ML VIAL (for RAD MRI) IV ONE (15:44)
[2016-12-07 16:00] VITALS: BP 125/75; PULSE 83; RESP 18; TEMP 98.2; O2SAT 98
[2016-12-07] MEDS ORDERED: HYDROmorphone HCL 2 MG TAB PO PRN (17:45)
--- NOTE | 2016-12-07 19:42 | RADRPT ---
EXAM DATE/TIME: 12/07/2016 15:11 [facility] COMPARISON: MRI BRAIN W & W/O CONTRAST, December 03, 2016, 13:21. INDICATIONS : Metastatic disease. CONTRAST: 12 cc Omniscan (gadodiamide) IV MEDICAL HISTORY : Carcinoma, lung. Hypertension. Myocardial infarction. SURGICAL HISTORY : Coronary artery stent. Tonsillectomy. ENCOUNTER: Initial ACUITY: 4-6 days PAIN SCORE: 3/10 LOCATION: Head TECHNIQUE: Multiplanar, multisequence MRI of the brain was performed both prior to and following the administrat ion of paramagnetic contrast. FINDINGS: Comparison MRI brain 4 days ago on December 03. On today's exam there are numerous subcentimeter foci of increased signal on diffusion weighted images of the brain. These include the left frontal lobe, righ t parietal lobe, right occipital lobe and both cerebellar hemispheres. These are most characteristic of small lacunar infarcts presumably related to embolic disease. There is a bony destructive lesion in the left frontal bone most characteristic of metastatic disease . There is dural enhancement present especially on the left side similar to prior exam suspicious for meningeal spread of tumor. No hydrocephalus. No abnormal extra-axial fluid collections. No significant mass effect or shift. CONCLUSION: 1. Numerous new subcentimeter foci of increased signal on the diffusion weighted images in the suprat entorial and infratentorial brain characteristic of multiple acute small lacunar infarcts likely seco ndary to embolic disease. 2. Bony destructive lesion left frontal bone characteristic of bony metastatic disease. 3. 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 Kun Pratt MD on December 07, 2016 at 19:32 Board Certified Radiologist. This report was verified electronically.
[2016-12-07 20:15] VITALS: BP 116/67; PULSE 91; RESP 16; TEMP 97.6; O2SAT 95
[2016-12-08 00:10] VITALS: BP 109/69; PULSE 92; RESP 16; TEMP 99; O2SAT 95
[2016-12-08 04:05] VITALS: BP 102/71; PULSE 92; RESP 16; TEMP 99.3; O2SAT 95
[2016-12-08] MEDS: ACETAMINOPHEN 325 MG TAB PO PRN ×2 (05:48→12:39)
[2016-12-08 06:13] LABS: HEMATOCRIT 33.9 % (35.0-46.0); MEAN CELL VOLUME 85.2 FL (80.0-100.0); MEAN CORPUSCULAR HGB CONC 34.1 % (32.0-36.0); PLATELET COUNT 55 TH/MM3 (150-450); RED BLOOD COUNT 3.98 MIL/MM3 (4.00-5.30); RED CELL DISTRIBUTION WIDTH 14.7 % (11.6-17.2); WHITE BLOOD COUNT 13.4 TH/MM3 (4.0-11.0)
[2016-12-08] MEDS: CAPTOPRIL 50 MG TAB PO SCH ×2 (06:13→16:00)
[2016-12-08 06:14] LABS: REVIEW FLAG FINAL
[2016-12-08 06:37] LABS: BICARBONATE 22.6 MEQ/L (21.0-32.0); POTASSIUM 3.7 MEQ/L (3.5-5.1)
[2016-12-08 08:00] VITALS: BP 116/64; PULSE 75; RESP 18; TEMP 98.1; O2SAT 93
[2016-12-08] MEDS: METOPROLOL TARTRATE 25 MG TAB PO SCH (09:00)
[2016-12-08] MEDS: PRAVASTATIN SOD 80 MG TAB PO SCH (09:43)
[2016-12-08] MEDS: HYDROCHLOROTHIAZIDE 25 MG TAB PO SCH (09:43)
[2016-12-08] MEDS: SODIUM CHLORIDE 0.9% FLUSH 10 ML FLUSH IV FLUSH SCH (09:45)
--- NOTE | 2016-12-08 09:46 | HHI.FPPN ---
Subjective Remarks Patient seen and examined this morning. No acute events overnight with vital signs stable. Per nursing staff, radiation oncology plans to meet with the patient for home teaching and brain mapping this afternoon. Her trial of Dilaudid for pain control last night was unsuccessful as she states that it only "took the edge off exactly like Tylenol." She would like to increase the dose in order to hopefully obtain more pain control. Otherwise she has no complaints and denies any fevers, chills, shortness of breath, chest pain, NVD, abdominal pain, or calf tenderness. (Mauricio Shepherd MD R1) Objective Vitals Vital Signs Date Time Temp Pulse Resp B/P Pulse Ox O2 Delivery O2 Flow Rate FiO2 12/08/16 08:00 98.1 75 18 116/64 93 12/08/16 04:05 99.3 92 16 102/71 95 12/08/16 00:10 99.0 92 16 109/69 95 12/07/16 20:15 97.6 91 16 116/67 95 12/07/16 16:00 12/07/16 16:00 98.2 83 18 125/75 98 12/07/16 12:00 97.8 86 18 104/67 97 I/O 12/07/16 12/07/16 12/07/16 12/08/16 12/08/16 12/08/16 06:59 14:59 22:59 06:59 14:59 22:59 Intake Total 480 ml 240 ml 240 ml Output Total 0 ml Balance 480 ml 240 ml 240 ml Intake Oral 480 ml 240 ml 240 ml Output Stool Total 0 ml # Voids 2 3 3 # Bowel Movements 0 0 0 (Mauricio Shepherd MD R1) Result Diagram: 12/08/1629 12/08/16528 Objective Remarks GENERAL: 52-year-old female lying in bed in no acute distress SKIN: Warm and dry. Multiple areas of healing ecchymosis secondary to thrombocytopenia. Two new prominent areas appreciated on her Upper R and middle back. HEENT: Atraumatic, normocephalic with EOMI. Strabismus. MMM. No LAD or JVD. CARDIOVASCULAR: Regular rate and rhythm without murmurs. RESPIRATORY:Clear lungs today after breathing treatment. No increased work of breathing. GASTROINTESTINAL: Soft, nontender with positive bowel sounds. No masses appreciated. Small bandage in the left upper quadrant from liver biopsy. EXTREMITIES: No cyanosis, or edema. Area of painful hematoma on her left leg lateral to the knee. NEUROLOGICAL: No obvious focal deficit. Awake, alert, and oriented x3. Some deviation of her eyes without conjugate gaze with history of strabismus. (Mauricio Shepherd MD R1) A/P Assessment and Plan Very pleasant 56 year old woman with PMH significant for COPD, left popliteal DVT found in 08/2016 had previously been on Xarelto last taken on 11/29, [place], HTN , HLD, and newly found right lung mass and metastatic lesions found in the liver on chest and abdomen/pelvis CT from 11/25/2016 sent to the ED by her primary care physician following her platelet count found to be at 15,000. Patient was transfused one unit of platelets and hematology/oncology consulted for further recommendations and evaluation of suspected malignancy with metastases. Discharge Planning Patient be discharged home today with close outpatient follow-up with hematology. Follow up instructions given to patient. She will call later today for follow-up appointment. (Mauricio Shepherd MD R1) Attending Attestation Patient seen and examined. Case reviewed and discussed with the resident team. Agree with plan of care as discussed with me and documented in the resident note. answered questions she had about chemo and radiation. she will be seeing radiation oncology today. hopefully her headaches improve with radiation of her brain mets (Brenda Eduardo MD) Problem List: (1) Thrombocytopenia Status: Acute Plan: Platelets 14,000 on admission Transfused 2 units of pheresis platelets since admission Trend CBC Consulted hematology/oncology, appreciate recs Liver biopsy on 12/06: Pending Transfuse to maintain platelet count over 50,000 Lower extremities ultrasound: Normal examination Hepatitis workup negative Peripheral smear: No evidence of platelet clumps, no giant platelets, no obvious dysplastic or dysmorphic findings Fibrinogen 136, 1 unit cryoprecipitate ordered 12/06 Patient to be discharged home after meeting with radiation oncology for home teaching and brain mapping prior to her procedures. (2) Mass of right lung Status: Acute Plan: Right lung mass with metastatic lesions found in the liver on chest and abdomen/pelvis CT from 11/25 Consulted hematology/oncology Please see plan as above Brain MRI: Examination demonstrates very subtle subdural hemorrhage along the left hemisphere. Meningeal enhancement as well. This is only approximately 1 mm in thickness. There is a destructive lesion evident in the left side of the frontal bone. 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 This is her cause of headaches but her sxs suggest migraines as well Osseous survey: No focal lytic or sclerotic lesions identified. Curvilinear calcification in the expanded region of the infrarenal abdominal aorta suggesting abdominal aortic aneurysm. Mild degenerative changes throughout the cervical, thoracic, and lumbar spine. (3) Headache Status: Acute Plan: Mild/moderate severity headache; patient also reporting numbness and tingling of left upper and lower extremity Head CT negative for new bleeding Neuro exam reassuring at this time Neuro checks q4h initially Dilaudid 2 mg every 6 hours when necessary for pain (4) COPD (chronic obstructive pulmonary disease) Status: Chronic Plan: Duonebs / albuterol q4h prn Supplemental O2 as needed to maintain O2 sats > 88% (5) HTN (hypertension) Status: Chronic Plan: Continue home captopril, hctz, lopressor Monitor vitals q4h stable (6) Nutrition, metabolism, and development symptoms Status: Acute Plan: Fluids: not indicated Electrolytes: WNLs Nutrition: regular diet DVT ppx: b/l SCDs (7) Tobacco use disorder Status: Chronic Plan: Smoking cessation urged. Will add nicotine patch if patient requests. Nicotine patch prescription given at discharge. (Mauricio Shepherd MD R1) Problem Qualifiers (1) Headache: Qualified Code: G44.52 - New daily persistent headache (2) COPD (chronic obstructive pulmonary disease): Qualified Code: J44.9 - Chronic obstructive pulmonary disease, unspecified COPD type (3) HTN (hypertension): Qualified Code: I10 - Essential hypertension Mauricio Shepherd MD R1 Dec 08, 2016 09:46 Brenda Eduardo MD Dec 08, 2016 15:00
[2016-12-08 12:00] VITALS: BP 134/74; PULSE 102; RESP 18; TEMP 97.8; O2SAT 95
[2016-12-08] MEDS ORDERED: HYDROmorphone HCL 2 MG TAB PO PRN (12:00)
[2016-12-08 16:00] VITALS: BP 123/86; PULSE 94; RESP 18; TEMP 98.2; O2SAT 99
--- NOTE | 2016-12-08 16:13 | HHI.FF ---
Face to Face Verification Diagnosis: (1) Thrombocytopenia (2) Mass of right lung (3) Metastatic cancer Physical Therapy Order: Evaluate and Treat, Improve ambulation, Strength and gait training Home Health Nursing Order: Medical education Signs/symptoms of disease process I have seen patient Maame Borrego on 12/08/16. My clinical findings support the need for the requested home health care services because: Ltd mobility - disease progression Deconditioned w/ increased weakness I certify that my clinical findings support that this patient is homebound because: Hx COPD- exertion dyspnea/weakness Need for psychosocial assistance Paco Bee MD R2 Dec 08, 2016 16:13
--- NOTE | 2016-12-09 17:01 | HHI.DS ---
Discharge Summary Admission Date Dec 02, 2016 at 23:18 Discharge Date: Dec 08, 2016 Admitting Diagnosis thrombocytopenia; bruising; metastatic cancer (1) Thrombocytopenia Diagnosis: Principal Plan: Platelets 14,000 on admission Transfused 2 units of pheresis platelets since admission Trend CBC Consulted hematology/oncology, jasmin bridges Liver biopsy on 12/06: Pending Transfuse to maintain platelet count over 50,000 Lower extremities ultrasound: Normal examination Hepatitis workup negative Peripheral smear: No evidence of platelet clumps, no giant platelets, no obvious dysplastic or dysmorphic findings Fibrinogen 136, 1 unit cryoprecipitate ordered 12/06 Patient to be discharged home after meeting with radiation oncology for home teaching and brain mapping prior to her procedures. (2) Mass of right lung Diagnosis: Principal Plan: Right lung mass with metastatic lesions found in the liver on chest and abdomen/pelvis CT from 11/25 Consulted hematology/oncology Please see plan as above Brain MRI: Examination demonstrates very subtle subdural hemorrhage along the left hemisphere. Meningeal enhancement as well. This is only approximately 1 mm in thickness. There is a destructive lesion evident in the left side of the frontal bone. 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 This is her cause of headaches but her sxs suggest migraines as well Osseous survey: No focal lytic or sclerotic lesions identified. Curvilinear calcification in the expanded region of the infrarenal abdominal aorta suggesting abdominal aortic aneurysm. Mild degenerative changes throughout the cervical, thoracic, and lumbar spine. (3) Headache Diagnosis: Principal Plan: Mild/moderate severity headache; patient also reporting numbness and tingling of left upper and lower extremity Head CT negative for new bleeding Neuro exam reassuring at this time Neuro checks q4h initially Dilaudid 2 mg every 6 hours when necessary for pain (4) COPD (chronic obstructive pulmonary disease) Diagnosis: Secondary Plan: Duonebs / albuterol q4h prn Supplemental O2 as needed to maintain O2 sats > 88% (5) HTN (hypertension) Diagnosis: Secondary Plan: Continue home captopril, hctz, lopressor Monitor vitals q4h stable (6) Nutrition, metabolism, and development symptoms Diagnosis: Principal Plan: Fluids: not indicated Electrolytes: WNLs Nutrition: regular diet DVT ppx: b/l SCDs (7) Tobacco use disorder Diagnosis: Principal Plan: Smoking cessation urged. Will add nicotine patch if patient requests. Nicotine patch prescription given at discharge. Brief History Maame Borrego is a very pleasant 56 year old woman with PMH significant for COPD, left popliteal DVT found in 08/2016 had previously been on Xarelto last taken on 11/29, NH, HTN, HLD, and newly found right lung mass and metastatic lesions found in the liver on chest and abdomen/pelvis CT from 11/25/2016 sent to the ED by her primary care physician Dr. Mis Fletcher due to thrombocytopenia with a platelet count of 15,000. Patient was recently seen here in the ED on 11/25 sent by her PCP at that time for further evaluation of abdominal bruising and to obtain an abdomen/pelvis CT which showed the above metastatic lesions in her liver. Chest CT at this time found the right lung mass with mediastinal adenopathy. Patient on evaluation reports bruising over her abdomen as well as various locations on her extremities and back. She denies any melena, hematochezia, hematuria, hemoptysis, vaginal bleeding. Pt denies recent fevers or chills. States she has had a cough lingering since last May which has not worsened recently. She states sometimes her cough is productive of white phlegm however production has not worsened. Denies chest pain or SOB. She does endorse abdominal pain over the site of bruising but otherwise denies any other abdominal pain. She reports a headache that began while she was waiting for a bed in the ED. She points to her left temporal area, mild to moderate in severity. She usually has headaches located in the frontal region. Pain not radiating anywhere. She also reports numbness and tingling of her left upper and lower extremity which she states started occurring about one week ago. Numbness and tingling has not worsened over this week. Denies any weakness. Denies any other focal neuro deficit. CBC/BMP: 12/08/16 0529 12/08/16 0529 Significant Findings Laboratory Tests Test 12/07/16 12/08/16 06:37 05:29 White Blood Count 11.8 TH/MM3 13.4 TH/MM3 (4.0-11.0) (4.0-11.0) Red Blood Count 3.98 MIL/MM3 3.98 MIL/MM3 (4.00-5.30) (4.00-5.30) Hemoglobin 11.5 GM/DL (11.6-15.3) Hematocrit 33.9 % 33.9 % (35.0-46.0) (35.0-46.0) Platelet Count 58 TH/MM3 55 TH/MM3 (150-450) (150-450) Prothrombin Time 12.0 SEC (9.8-11.6) Fibrinogen 211 mg/dL (227-377) Sodium Level 132 MEQ/L 133 MEQ/L (136-145) (136-145) Blood Urea Nitrogen 31 MG/DL (7-18) 31 MG/DL (7-18) Creatinine 1.20 MG/DL 1.08 MG/DL (0.50-1.00) (0.50-1.00) Estimat Glomerular Filtration 47 ML/MIN (>89) 53 ML/MIN (>89) Rate PE at Discharge GENERAL: 52-year-old female lying in bed in no acute distress SKIN: Warm and dry. Multiple areas of healing ecchymosis secondary to thrombocytopenia. Two new prominent areas appreciated on her Upper R and middle back. HEENT: Atraumatic, normocephalic with EOMI. Strabismus. MMM. No LAD or JVD. CARDIOVASCULAR: Regular rate and rhythm without murmurs. RESPIRATORY:Clear lungs today after breathing treatment. No increased work of breathing. GASTROINTESTINAL: Soft, nontender with positive bowel sounds. No masses appreciated. Small bandage in the left upper quadrant from liver biopsy. EXTREMITIES: No cyanosis, or edema. Area of painful hematoma on her left leg lateral to the knee. NEUROLOGICAL: No obvious focal deficit. Awake, alert, and oriented x3. Some deviation of her eyes without conjugate gaze with history of strabismus. Hospital Course Patient was admitted and transfused 1 unit of pheresis platelets with hematology /oncology consulted on admission. Hematology oncology recommended platelet transfusion to keep platelets greater than 50 and consultation of interventional radiology to perform liver biopsy. On hospital day 1 and hospital day 2 she was transfused another unit of pheresis platelets each. On hospital day 3 she was found to have a decreased fibrinogen and was therefore transfused 1 unit of cryoprecipitate likely due to DIC secondary to her malignancy. Further evaluation of her malignancy was completed with skeletal survey and brain MRI (findings as above). Patient's headache was controlled by Tylenol throughout her admission without relief of Dilaudid. On hospital day 3 liver biopsy was performed without complication. Prior to discharge patient was contacted by radiation oncology for initial evaluation and plans for future follow-up. The patient was discharged on hospital day 5 and advised to follow- up with her PCP in 1 week as well as Dr. Huddleston by the end of the week to evaluate her platelets as well as discuss her biopsy findings. All of her home medications were continued at discharge as her pain was controlled with Tylenol when necessary. Pt Condition on Discharge: Stable Discharge Disposition: Disch w/ Home Health Serv Discharge Instructions DIET: Follow Instructions for: As Tolerated, No Restrictions Activities you can perform: Regular-No Restrictions Other Activity Instructions: Home health and physical therapy at home. Follow up Referrals: Oncology - 3-5 Days with Pablo Huddleston MD PCP Follow-up - 1 Week Continued Medications: Albuterol 18 GM Inh (Ventolin Hfa 18 GM Inh) 90 Mcg/Act Aer 2 PUFF INH Q4-6H PRN SHORTNESS OF BREATH #1 Ref 0 INHALER Alprazolam (Xanax) 0.5 Mg Tab 0.5 MG PO BID PRN ANXIETY #30 Ref 1 TAB Captopril (Captopril) 50 Mg Tab 50 MG PO BIDAC Take 1 hour before meals. #60 Ref 6 TAB Hydrochlorothiazide (Hydrochlorothiazide) 25 Mg Tab 25 MG PO DAILY #30 Ref 6 TAB Hydrocortisone (Topical) (Ala-Arnol Topical) 2.5% Cream 1 APPLIC TOPICAL DIRECTED Inflammation #1 Ref 1 TUBE Metoprolol Tartrate (Metoprolol Tartrate) 25 Mg Tab 25 MG PO BID #60 Ref 6 TAB Ranitidine (Ranitidine) 150 Mg Tab 150 MG PO DAILY PRN HRT #30 Ref 0 TAB Simvastatin (Zocor) 80 Mg Tab 80 MG PO DAILY Cholesterol Management #30 Ref 0 TAB Discontinued Medications: Azithromycin (Azithromycin) 500 Mg Tab 500 MG PO DAILY Infection #5 Ref 0 TAB Prednisone (Prednisone) 20 Mg Tab 40 MG PO DAILY Take 40 mg (2 tablets) daily for 5 days #10 Ref 0 TAB Mauricio Shepherd MD R1 Dec 09, 2016 17:01
[2016-12-13] MEDS ORDERED: DILA2TAB2 PO (15:55)
== END 2016-12-08 19:39 | disposition home health service (06) | DRG 813 ==
LOC: NEPC 20:18 → NEDA 23:18 → N06B 12-03 01:21
PROVIDERS: ADMIT Family Medicine; ATTEND Family Medicine
PROC: 30233R1 Transfusion of Nonautologous Platelets into Peripheral Vein, Percutaneous Approach (ICD-10-PCS; 2016-12-02)
PROC: 0FB23ZX Excision of Left Lobe Liver, Percutaneous Approach, Diagnostic (ICD-10-PCS; principal; 2016-12-06)
PROC: 30233M1 Transfusion of Nonautologous Plasma Cryoprecipitate into Peripheral Vein, Percutaneous Approach (ICD-10-PCS; 2016-12-06)
DX: D69.6 Thrombocytopenia, unspecified (principal); I62.00 Nontraumatic subdural hemorrhage, unspecified; C78.7 Secondary malignant neoplasm of liver and intrahepatic bile duct; C79.51 Secondary malignant neoplasm of bone; C34.91 Malignant neoplasm of unspecified part of right bronchus or lung; J44.9 Chronic obstructive pulmonary disease, unspecified; I10 Essential (primary) hypertension; E78.5 Hyperlipidemia, unspecified; F17.210 Nicotine dependence, cigarettes, uncomplicated; I71.4 Abdominal aortic aneurysm, without rupture; J45.909 Unspecified asthma, uncomplicated; M19.90 Unspecified osteoarthritis, unspecified site; H53.9 Unspecified visual disturbance; G44.52 New daily persistent headache (NDPH); I25.10 Atherosclerotic heart disease of native coronary artery without angina pectoris; K21.9 Gastro-esophageal reflux disease without esophagitis; I25.2 Old myocardial infarction; Z86.718 Personal history of other venous thrombosis and embolism; Z95.5 Presence of coronary angioplasty implant and graft
CPT/HCPCS: 36430; 47000; 70450; 70553; 77012; 77075; 77263; 77290; 77295; 77300; 77334; 80048; 80053; 80074; 81001; 85025; 85027; 85060; 85384; 85610; 85730; 86022; 86850; 86900; 86901; 86965; 88307; 88333; 88341; 88342; 93005; 93970; 94640; 94664; 99223; A9577; A9579; J2250; J3010; J7050; P9035; Q0163

== ENCOUNTER 2016-12-14 23:17 | Emergency (ER) | payer OTHER ==
[~2016-12-14] VITALS: Ht 152.4 cm; Wt 58.0 kg
[~2016-12-14 23:17] MED LIST changes: -AZIT500T2 PO; +DILA2TAB2 PO; -PRED20 PO
[2016-12-14 23:20] VITALS: BP 155/69; PULSE 95; RESP 16; TEMP 98.1; O2SAT 96
--- NOTE | 2016-12-14 23:58 | PD ---
HPI Chief Complaint: Edema Time Seen by Provider: 23:52 Travel History International Travel<30 days: No Contact w/Intl Traveler<30days: No Traveled to known affect area: No History of Present Illness HPI h/o lung ca with mets to liver and brain, on chemo now.....was taken off xaarelto 1 month ago (was on it for rle dvt) because her platelets were low. now pt c/o swelling and rle pain again over last 3 days or so. PFSH Past Medical History Hx Anticoagulant Therapy: Yes (XARELTO STOPPED 11/29/16) Arthritis: Yes Asthma: Yes Blood Disorders: No Cancer: Yes (LUNG CANCER WITH METS TO LIVER) Cardiac Catheterization: Yes (1 stent) Cardiovascular Problems: Yes (HX OF [place] ) High Cholesterol: Yes Chemotherapy: No COPD: Yes Coronary Artery Disease: Yes Diabetes: No Deep Vein Thrombosis: Yes Endocrine: No Gastrointestinal Disorders: Yes GERD: Yes Genitourinary: No Headaches: Yes Hypertension: Yes Immune Disorder: No Musculoskeletal: Yes Neurologic: No Psychiatric: No Reproductive: No Respiratory: Yes Immunizations Current: Yes Myocardial Infarction: Yes Radiation Therapy: No Thyroid Disease: No ?: Not Menopausal: Yes : 2 Para: 1 : 1 Past Surgical History Cardiac Surgery: Yes (STENT PLACED) Oral Surgery: Yes (TONSILS) Tonsillectomy: Yes ( A KID PER PT) Other Surgery: Yes Social History Alcohol Use: No Tobacco Use: Yes Substance Use: No Allergies-Medications (Allergen,Severity, Reaction): Coded Allergies: Codeine (Verified Allergy, Severe, HEART RACES, 12/14/16) Contrast Media (Verified Allergy, Severe, Headache, 12/14/16) Lortab (Verified Allergy, Severe, SEVERE ITCHING, 12/14/16) Flexeril (Verified Allergy, Intermediate, 12/14/16) Lipitor (Verified Allergy, Intermediate, 12/14/16) Nitro-Dur (Verified Adverse Reaction, Intermediate, drop in blood pressure too fast, 12/14/16) Reported Meds & Prescriptions Reported Meds & Active Scripts Active Dilaudid (Hydromorphone HCl) 2 Mg Tab 1 Mg PO Q8H PRN Ventolin Hfa 18 GM Inh (Albuterol Sulfate) 90 Mcg/Act Aer 2 Puff INH Q4-6H PRN Ala-Arnol Topical (Hydrocortisone (Topical)) 2.5% Cream 1 Applic TOPICAL DIRECTED Metoprolol Tartrate 25 Mg Tab 25 Mg PO BID Hydrochlorothiazide 25 Mg Tab 25 Mg PO DAILY Captopril 50 Mg Tab 50 Mg PO BIDAC Take 1 hour before meals. Xanax (Alprazolam) 0.5 Mg Tab 0.5 Mg PO BID PRN Zocor (Simvastatin) 80 Mg Tab 80 Mg PO DAILY Reported Ranitidine (Ranitidine HCl) 150 Mg Tab 150 Mg PO DAILY PRN Review of Systems Musculoskeletal: Positive: Edema (minimal edema over last 3 days and pain ) Physical Exam Narrative GENERAL: SKIN: Warm and dry. HEAD: Atraumatic. Normocephalic. EYES: Pupils equal and round. No scleral icterus. No injection or drainage. ENT: No nasal bleeding or discharge. Mucous membranes pink and moist. NECK: Trachea midline. No JVD. CARDIOVASCULAR: Regular rate and rhythm. RESPIRATORY: No accessory muscle use. Clear to auscultation. Breath sounds equal bilaterally. GASTROINTESTINAL: Abdomen soft, non-tender, nondistended. Hepatic and splenic margins not palpable. MUSCULOSKELETAL: Extremities without clubbing, cyanosis. rle has trace edema present c/w lle. No obvious deformities. NEUROLOGICAL: Awake and alert. No obvious cranial nerve deficits. Motor grossly within normal limits. Five out of 5 muscle strength in the arms and legs. Normal speech. PSYCHIATRIC: Appropriate mood and affect; insight and judgment normal. Data Data Last Documented VS Vital Signs Date Time Temp Pulse Resp B/P Pulse Ox O2 Delivery O2 Flow Rate FiO2 12/14/16 23:20 98.1 95 16 155/69 96 Orders Us Leg Venous Doppler (12/15/16 23:52) Complete Blood Count With Diff (12/15/16 02:21) Basic Metabolic Panel (Bmp) (12/15/16 02:21) Prothrombin Time / Inr (Pt) (12/15/16 02:21) Act Partial Throm Time (Ptt) (12/15/16 02:21) Enoxaparin Inj (Lovenox Inj) (12/15/16 05:30) Labs Laboratory Tests Test 12/15/16 03:00 White Blood Count 10.0 TH/MM3 Red Blood Count 3.89 MIL/MM3 Hemoglobin 11.3 GM/DL Hematocrit 33.2 % Mean Corpuscular Volume 85.1 FL Mean Corpuscular Hemoglobin 29.1 PG Mean Corpuscular Hemoglobin 34.2 % Concent Red Cell Distribution Width 14.5 % Platelet Count 71 TH/MM3 Mean Platelet Volume 9.5 FL Neutrophils (%) (Auto) 68.0 % Lymphocytes (%) (Auto) 14.6 % Monocytes (%) (Auto) 7.2 % Eosinophils (%) (Auto) 9.2 % Basophils (%) (Auto) 1.0 % Neutrophils # (Auto) 6.8 TH/MM3 Lymphocytes # (Auto) 1.5 TH/MM3 Monocytes # (Auto) 0.7 TH/MM3 Eosinophils # (Auto) 0.9 TH/MM3 Basophils # (Auto) 0.1 TH/MM3 CBC Comment AUTO DIFF Differential Comment AUTO DIFF CONFIRMED Platelet Estimate LOW Platelet Morphology Comment NORMAL Red Cell Morphology Comment NORMAL Prothrombin Time 12.5 SEC Prothromb Time International 1.1 RATIO Ratio Activated Partial 28.5 SEC Thromboplast Time Sodium Level 138 MEQ/L Potassium Level 4.2 MEQ/L Chloride Level 100 MEQ/L Carbon Dioxide Level 28.6 MEQ/L Anion Gap 9 MEQ/L Blood Urea Nitrogen 31 MG/DL Creatinine 1.78 MG/DL Estimat Glomerular Filtration 30 ML/MIN Rate Random Glucose 67 MG/DL Calcium Level 9.0 MG/DL MDM Medical Decision Making Medical Screen Exam Complete: Yes Emergency Medical Condition: Yes Medical Record Reviewed: Yes Differential Diagnosis peripheral edema v dvt vs musculoskeletal Narrative Course PT FOUND TO HAVE DVT ON RLE, LABS DRAWN TO EVAL THROMBOCYTOPENIA...PLT 71, WILL GIVE SINGLE DOSE OF LOVENOX SQ AND ADVISE TO F/U WITH HER ONCOLOGIST FOR FURTHER TREATMENTS (THEY WERE THE ONES THAT REMOVED HER FROM [facility] SHE HAD THROMBOCYTOPENIA). Diagnosis Primary Impression: RLE DVT Patient Instructions: Deep Venous Thrombosis (DC), General Instructions Disposition: 01 DISCHARGE HOME Condition: Stable Sunil Jo MD Dec 14, 2016 23:58
--- NOTE | 2016-12-15 01:23 | RADRPT ---
EXAM DATE/TIME: 12/15/2016 00:36 [facility] COMPARISON: US LEG RIGHT VENOUS DOPPLER, October 09, 2016, 23:42. INDICATIONS : Right leg pain. MEDICAL HISTORY : Myocardial infarction. Hypercholesterolemia. Arthritis. CAD. Hyperlipidemia. HTN. DVT. COPD. Asthm a. GERD. Lung cancer with mets to liver. Thrombocytopenia. Anxiety. SURGICAL HISTORY : Tonsillectomy. Coronary artery stent. Deviated septum. Cardiac cath. Lumbar bulging disc surgery. ENCOUNTER: Subsequent ACUITY: 1 week PAIN SCORE: 8/10 LOCATION: Right leg. TECHNIQUE: Venous ultrasound of the leg was performed from the inguinal ligament to the proximal calf. Real-shadia e, color Doppler and spectral tracing, compression and augmentation techniques were used. FINDINGS: There is compressibility of the femoral vein and popliteal vein with flow documented by color Doppler . There is no significant augmentation seen with distal compression however. In the calf, the poste rior tibial and peroneal veins are noncompressible and no flow seen within. There is echogenic throm bus within the superficial veins of the medial thigh with absent flow on color Doppler. CONCLUSION: 1. Evidence of deep venous thrombosis in the calf veins. 2. Intact flow in the deep venous system from the inguinal region to the popliteal. 3. Superficial thrombosis in the thigh. Henri Ray MD on December 15, 2016 at 1:18 Board Certified Radiologist. This report was verified electronically.
[2016-12-15 03:20] LABS: AUTOMATED NEUTROPHIL # 6.8 TH/MM3 (1.8-7.7); BASOPHIL # 0.1 TH/MM3 (0-0.2); EOSINOPHIL # 0.9 TH/MM3 (0-0.4); EOSINOPHIL % 9.2 % (0.0-4.0); HEMATOCRIT 33.2 % (35.0-46.0); LYMPH % 14.6 % (9.0-44.0); LYMPHOCYTE # 1.5 TH/MM3 (1.0-4.8); MEAN CELL VOLUME 85.1 FL (80.0-100.0); MEAN CORPUSCULAR HEMOGLOBIN 29.1 PG (27.0-34.0); MEAN CORPUSCULAR HGB CONC 34.2 % (32.0-36.0); MONO % 7.2 % (0.0-8.0); PLATELET COUNT 71 TH/MM3 (150-450); RED BLOOD COUNT 3.89 MIL/MM3 (4.00-5.30); RED CELL DISTRIBUTION WIDTH 14.5 % (11.6-17.2)
[2016-12-15 03:23] LABS: HEMO FLAGS AUTO DIFF
[2016-12-15 03:26] LABS: APTT (PATIENT) 28.5 SEC (24.3-30.1); INTERNATIONAL NORMALIZED RATIO 1.1 RATIO; PROTHROMBIN TIME - PATIENT 12.5 SEC (9.8-11.6)
[2016-12-15 03:48] LABS: PLATELET ESTIMATE SMEAR LOW (NORMAL); PLATELET MORPHOLOGY NORMAL (NORMAL); SCAN/DIFF AUTO DIFF CONFIRMED
[2016-12-15 04:24] LABS: BICARBONATE 28.6 MEQ/L (21.0-32.0); POTASSIUM 4.2 MEQ/L (3.5-5.1)
[2016-12-15] MEDS ORDERED: ENOXAPARIN SODIUM 60 MG/0.6 ML SYRINGE SQ ONE (05:30)
[2016-12-15] MEDS ORDERED: ACETAMINOPHEN 325 MG TAB PO ONE (05:45)
== END 2016-12-15 05:54 | disposition home or self-care (01) ==
LOC: NEPC 23:17
DX: I82.401 Acute embolism and thrombosis of unspecified deep veins of right lower extremity (principal); Z85.118 Personal history of other malignant neoplasm of bronchus and lung; C79.31 Secondary malignant neoplasm of brain; C78.7 Secondary malignant neoplasm of liver and intrahepatic bile duct; I10 Essential (primary) hypertension; I25.10 Atherosclerotic heart disease of native coronary artery without angina pectoris; J45.909 Unspecified asthma, uncomplicated; I25.2 Old myocardial infarction; J44.9 Chronic obstructive pulmonary disease, unspecified; Z72.0 Tobacco use; Z92.21 Personal history of antineoplastic chemotherapy
CPT/HCPCS: 80048; 85025; 85610; 85730; 93971; 96372; 99285; J1650

== ENCOUNTER → 2017-01-05 | Outpatient (CLI) | payer OTHER ==
[~2017-01-05] MED LIST changes: +AMBI5TAB PO; +CIPRHC10A EACH EAR; +IPRASOL INH; +NEBULIZER1 MI1
--- NOTE | 2017-01-05 10:32 | RADRPT ---
EXAM DATE/TIME: 01/05/2017 08:59 [facility] COMPARISON: No previous studies available for comparison. INDICATIONS : Flank pain. MEDICAL HISTORY : Myocardial infarction. Hypertension. Hypercholesterolemia. CAD. COPD. Lung cancer with mets. SURGICAL HISTORY : Tonsillectomy. Back surgery. ENCOUNTER: Initial ACUITY: 2 weeks PAIN SCORE: 4/10 LOCATION: Bilateral flank MEASUREMENTS: RIGHT KIDNEY: 7.2 x 2.7 x 3.2 cm LEFT KIDNEY: 9.6 x 5.8 x 5.0 cm FINDINGS: Ultrasound of the kidneys was performed. RIGHT KIDNEY: The right kidney is quite atrophic. There is marked cortical thinning and a prominent cyst in the lo wer pole. The lower pole cyst measures 2.6 x 2.3 cm. There is a smaller cyst in the upper pole elle uring 1.5 cm. LEFT KIDNEY: More normal in appearance with normal cortex. There is no evidence of hydronephrosis. BLADDER: Decompressed. CONCLUSION: Atrophic right kidney with marked cortical thinning and at least two benign cysts. Left kidney has a normal appearance. Poncho Garland MD on January 05, 2017 at 9:56 Board Certified Radiologist. This report was verified electronically.
== END ==
LOC: HRAD 08:33
PROVIDERS: ATTEND Family Medicine
DX: R31.9 Hematuria, unspecified (principal)
CPT/HCPCS: 76775